=== PATIENT | male | born 1970 | race Caucasian/White ===

== ENCOUNTER → 2018-09-21 09:19 | Outpatient (CLI) | payer OTHER, SELFPAY ==
[2018-09-21 10:44] LABS: Alanine Aminotransferase 46 IU/L (21-72); Albumin 4.6 g/dL (3.5-5.0); Albumin Globulin Ratio 1.7 (1.0-2.8); Alkaline Phosphatase 83 U/L (38-126); Aspartate Aminotransferase 43 IU/L (17-59); BUN Creatinine Ratio 18.6 (6-22); Blood Urea Nitrogen 13 mg/dL (9-20); Calcium 9.5 mg/dL (8.4-10.2); Carbon Dioxide 24 mmol/L (22-32); Chloride 104 mmol/L (98-107); Cholesterol 229 mg/dL (140-199); Estimated Glomerular Filt Rate > 60.0 mL/min (>60); Globulin 2.7 g/dL (1.7-4.1); Glucose 113 mg/dL (70-100); HDL Cholesterol 60 mg/dL (40-60); HEMOLYSIS < 15 (0-50); LDL Cholesterol Calculated 125 mg/dL (<100); Potassium 4.5 mmol/L (3.4-5.1); Sodium 143 mmol/L (137-145); Total Protein 7.3 g/dL (6.3-8.2); Triglycerides 220 mg/dL (35-150)
[2018-09-21 11:12] LABS: Prostate Specific Antigen Scrn 1.11 ng/mL (0.1-4.0)
== END ==
PROVIDERS: PCP Internal Medicine; Visit Provider Internal Medicine
DX: E78.2 Mixed hyperlipidemia (principal); G43.709 Chronic migraine without aura, not intractable, without status migrainosus; Z12.5 Encounter for screening for malignant neoplasm of prostate
CPT/HCPCS: 36415; 80053; 80061; G0103

== ENCOUNTER 2019-03-10 18:39 | Emergency (ER) | payer OTHER, SELFPAY ==
[2019-03-10 18:54] VITALS: BP 106/75; PULSE 107; RESP 17; TEMP 36.4; O2SAT 99
--- NOTE | 2019-03-10 19:03 | DI.RAD.S_ITS ---
PROCEDURE: XR TOE LT MIN 2V INDICATIONS: pain TECHNIQUE: 3 views of the left first toe(s) acquired. COMPARISON: None. FINDINGS: Bones: Subtle, linear lucency involving the distal phalanx of the left great toe without cortical disruption. Overlying soft tissue edema. Normal alignment. No suspicious bony lesions. Soft tissues: No suspicious soft tissue densities. IMPRESSION: Subtle linear lucency involving the distal phalanx of the left great toe without cortical disruption. There is overlying soft tissue edema. Nondisplaced fracture not excluded given mechanism of injury. Dictated by: Geo Cruz M.D. on 03/10/2019 at 20:15 Approved by: Geo Cruz M.D. on 03/10/2019 at 20:16
--- NOTE | 2019-03-10 19:03 | DI.RAD.S_ITS ---
PROCEDURE: XR TOE RT MIN 2V INDICATIONS: pain TECHNIQUE: 3 views of the right first toe(s) acquired. COMPARISON: None. FINDINGS: Bones: Mildly comminuted distal tuft fracture of the right great toe distal phalanx with overlying soft tissue swelling and defect. Findings are consistent with an open-type /compound fracture. No suspicious bony lesions. Soft tissues: No suspicious soft tissue densities. IMPRESSION: Mildly comminuted distal tuft fracture of the right great toe distal phalanx with overlying soft tissue swelling and defect. Dictated by: Geo Cruz M.D. on 03/10/2019 at 20:16 Approved by: Geo Cruz M.D. on 03/10/2019 at 20:19
--- NOTE | 2019-03-10 20:35 | ED_ITS ---
HPI - Extremity Injury (Lower) <Cecilia Cr PA-C - Last Filed: 03/10/19 23:01> General Chief Complaint: Extremity Injury, Lower Stated Complaint: right foot injury Time Seen by Provider: 03/10/19 20:34 Source: patient Mode of arrival: other (family vehicle) Limitations: no limitations History of Present Illness HPI Narrative: This 49 year male complains of injury mainly to the right great toe, also some pain on the left. He states that he was out working in the [employer] when a 500 lb drum rolled down and over his toes and a little bit of his legs. He was wearing flip-flops. He states this knocked him over but no other injuries. He denies any pain in his knees, ankles, or shins. Denies any head contusion or pain elsewhere. Related Data Previous Rx's Medication Instructions Recorded buspirone 7.5 mg tablet 7.5 mg PO BID #60 tab 01/24/19 clonidine 0.2 mg/24 hr weekly 1 patch TRANSDERMAL QWEEK #12 each 01/24/19 transdermal patch paroxetine 40 mg tablet 40 mg PO Q DAY #30 tab 03/03/19 cephalexin [Keflex] 500 mg PO TID #14 cap 03/10/19 naproxen 500 mg PO BID #14 tab 03/10/19 oxycodone-acetaminophen [Percocet] 1 tab PO Q4-6H PRN #8 tab 03/10/19 Allergies Allergy/AdvReac Type Severity Reaction Status Date / Time No Known Drug Allergies Allergy Verified 03/10/19 20:34 Review of Systems <Cecilia Cr PA-C - Last Filed: 03/10/19 23:01> Review of Systems ROS Unobtainable: All systems reviewed & are unremarkable except as noted in HPI and below PFSH <Cecilia Cr PA-C - Last Filed: 03/10/19 23:01> Medical History Generalized anxiety disorder (Chronic) Mixed hyperlipidemia (Chronic 03/28/13) Chronic migraine (Chronic) Anxiety (Chronic ~2001) Carpal tunnel syndrome (Chronic ~2012) Chronic back pain (Chronic ~2012) Depression (Chronic) Migraines (Chronic) Chicken pox (Resolved ~1974) Surgical History Anesthesia (Resolved) History of mandibular surgery (Resolved ~1989) History of nasal surgery (Resolved ~2001) History of surgery (Resolved ~2013) History of carpal tunnel repair (~2012) Status post knee surgery (~2012) Family History Father Prostate cancer Social History Smoking Status: Never smoker Family History Father Prostate cancer Social History Smoking Status: Never smoker Exam <Cecilia Cr PA-C - Last Filed: 03/10/19 23:01> Narrative Exam Narrative: GENERAL APPEARANCE: Patient sitting comfortably, in no distress. LUNGS: Clear to auscultation bilaterally. HEART: Rate and rhythm regular without murmur, normal S1 and S2, no S3 or S4. MUSCULOSKELETAL: There is right great toe effusion, tender over the distal portion of the toe, no proximal tenderness, no tenderness over the metatarsals, right ankle or lower leg. Mild tenderness over the 2nd distal medial toe. Minimal tenderness over the left great toe without effusion. He has full range of motion throughout the toes but is tender with movement on the right. DERMATOLOGIC: Right great toe there is some dried blood along the nail border more medially, which is slightly loose but adherent. No open wounds, there is ecchymoses present. NEUROVASCULAR: PT/DP pulses 2+ bilaterally, sensation grossly intact in the lower extremities Initial Vital Signs Initial Vital Signs: Vital Signs Temperature 97.6 F 03/10/19 18:54 Pulse Rate 107 H 03/10/19 18:54 Respiratory Rate 17 03/10/19 18:54 Blood Pressure 106/75 03/10/19 18:54 Pulse Oximetry 99 03/10/19 18:54 <Cierra Gonzalez DO - Last Filed: 03/11/19 05:56> Initial Vital Signs Initial Vital Signs: Vital Signs Temperature 97.6 F 03/10/19 18:54 Pulse Rate 107 H 03/10/19 18:54 Respiratory Rate 17 03/10/19 18:54 Blood Pressure 106/75 03/10/19 18:54 Pulse Oximetry 99 03/10/19 18:54 Course <Cecilia Cr PA-C - Last Filed: 03/10/19 23:01> Additional Information: Patient able to bear weight with ortho shoes and ambulate with crutches. Treated with antibiotics to cover open fracture, tetanus vaccine updated. Pain medication given. Advised follow-up with PCP next week for re-evaluation as it was unclear whether he actually had a fracture on the left, unlikely to need more treatment at this point if these are protected since these are distal fractures. Orders Ordered: Discontinued Medications Cefazolin Sodium (Keflex) 1 bottle MISC SEEINSTR ONE Stop: 03/10/19 20:47 Last Admin: 03/10/19 22:36 Dose: Not Given Diphtheria/Tetanus/Acell Pertussis (Adacel) 0.5 ml IM .ONCE ONE Stop: 03/10/19 20:47 Last Admin: 03/10/19 21:21 Dose: 0.5 ml Ibuprofen (Advil) 800 mg PO NOW ONE Stop: 03/10/19 20:32 Last Admin: 03/10/19 20:37 Dose: 800 mg Ondansetron HCl (Zofran Odt) 4 mg SL NOW ONE Stop: 03/10/19 20:32 Last Admin: 03/10/19 20:37 Dose: 4 mg Oxycodone/Acetaminophen (Percocet 5/325) 2 tab PO NOW ONE Stop: 03/10/19 20:47 Last Admin: 03/10/19 21:21 Dose: 2 tab Oxycodone/Acetaminophen (Endocet 5/325 Prepack) 1 bottle MISC SEEINSTR ONE Stop: 03/10/19 22:31 Last Admin: 03/10/19 22:36 Dose: 1 bottle Vital Signs - 8 hr 03/10/19 22:51 Pulse Rate 64 Respiratory Rate 16 <Cierra Gonzalez DO - Last Filed: 03/11/19 05:56> Orders Ordered: Discontinued Medications Cefazolin Sodium (Keflex) 1 bottle MISC SEEINSTR ONE Stop: 03/10/19 20:47 Last Admin: 03/10/19 22:36 Dose: Not Given Diphtheria/Tetanus/Acell Pertussis (Adacel) 0.5 ml IM .ONCE ONE Stop: 03/10/19 20:47 Last Admin: 03/10/19 21:21 Dose: 0.5 ml Ibuprofen (Advil) 800 mg PO NOW ONE Stop: 03/10/19 20:32 Last Admin: 03/10/19 20:37 Dose: 800 mg Ondansetron HCl (Zofran Odt) 4 mg SL NOW ONE Stop: 03/10/19 20:32 Last Admin: 03/10/19 20:37 Dose: 4 mg Oxycodone/Acetaminophen (Percocet 5/325) 2 tab PO NOW ONE Stop: 03/10/19 20:47 Last Admin: 03/10/19 21:21 Dose: 2 tab Oxycodone/Acetaminophen (Endocet 5/325 Prepack) 1 bottle MISC SEEINSTR ONE Stop: 03/10/19 22:31 Last Admin: 03/10/19 22:36 Dose: 1 bottle Vital Signs - 8 hr 03/10/19 22:51 Pulse Rate 64 Respiratory Rate 16 MDM - Extremity Injury (Lower) <Cecilia Cr PA-C - Last Filed: 03/10/19 23:01> Imaging Data toe: Radiologist's impression: Isma Coreas 49 M 1970 [place] [address] XRay Report Signed Patient: Isma CoreasMR#: [id number] : 1970Acct:[id number] Age/Sex: 49 / MDate of Service: 03/10/19 Loc: ED Accession Number: [id number] Procedure: XR toe RT min 2V Ordering Provider: Cierra Gonzalez D.O. PROCEDURE: XR TOE RT MIN 2V INDICATIONS: pain TECHNIQUE: 3 views of the right first toe(s) acquired. COMPARISON: None. FINDINGS: Bones: Mildly comminuted distal tuft fracture of the right great toe distal phalanx with overlying soft tissue swelling and defect. Findings are consistent with an open- type /compound fracture. No suspicious bony lesions. Soft tissues: No suspicious soft tissue densities. IMPRESSION: Mildly comminuted distal tuft fracture of the right great toe distal phalanx with overlying soft tissue swelling and defect. Dictated by: Geo Cruz M.D. on 03/10/2019 at 20:16 Approved by: Geo Cruz M.D. on 03/10/2019 at 20:19 Discharge Plan Departure Patient Disposition: Home Clinical Impression: Fracture of toe, open Qualifiers: Encounter type: initial encounter Toe: great toe Phalanx: distal Fracture alignment: displaced Laterality: right Qualified Code(s): S92.421B - Displaced fracture of distal phalanx of right great toe, initial encounter for open fracture Discharge Date/Time: 03/10/19 22:52 Interventions: ED Discharge Assessment Last Done: 03/10/19 22:51 Instructions: DI for Toe Fracture Activity Restrictions/Additional Instructions: You have a fracture the end of your toe on the right foot. You had swelling on the left and though there was not a clear fracture, there were some subtle changes that could be a small fracture. We have given you surgical shoes for protection, please wear these, and use the crutches. You can bear weight on the left foot as tolerated, and start to bear a little weight on the right as your pain improves and you tolerate. Take 2 tablets of the antibiotic cephalexin when you get home and another dose 1st thing in the morning. I have given you a little bit of pain medicine (Percocet) prescription to take as needed, remember it can make you sleepy and not to drive. I have also given you a prescription anti-inflammatory pain reliever prescription as well as a prescription for antibiotics to continue for a few days since you had a injury and cut on your toe. Please monitor for any signs of infection such as fever, redness or streaking, acutely worsening pain or swelling and return right away if any. Otherwise, please follow-up with your PCP in a few days to recheck and determine whether any additional treatment or pain medicine may be needed Prescriptions: New oxycodone-acetaminophen [Percocet] 5-325 mg tablet 1 tab PO Q4-6H PRN (Reason: acute fracture pain) Qty: 8 RF: 0 cephalexin [Keflex] 500 mg capsule 500 mg PO TID Qty: 14 RF: 0 naproxen 500 mg tablet 500 mg PO BID Qty: 14 RF: 0 No Action paroxetine HCl [Paxil] 40 mg tablet 40 mg PO Q DAY Qty: 30 RF: 1 clonidine 0.2 mg/24 hr patch weekly 1 patch Transdermal QWEEK Qty: 12 RF: 3 buspirone 7.5 mg tablet 7.5 mg PO BID Qty: 60 RF: 3 Referrals: Sreekanth Vasquez MD [Primary Care Provider] - <Cierra Gonzalez DO - Last Filed: 03/11/19 05:56> Cosign ED Attending Cosignature Attestation: I was immediately available in the department for consultation. Documentation has been reviewed. I agree with assessment and plan.
[2019-03-10] MEDS: ONDANSETRON 4 MG ODT SL (20:37)
[2019-03-10] MEDS: IBUPROFEN 400 MG TABLET 800 MG PO (20:37)
[2019-03-10] MEDS: OXYCODONE/ACETAMINOPHEN 5/325 TABLET 2 TAB PO (21:21)
[2019-03-10] MEDS: TET,DIPH,PERTUSS(ACELL),VAC/PF 0.5 ML SYRINGE IM (21:21)
[2019-03-10] MEDS: OXYCODONE/APAP 5/325 PREPACK 1 BOTTLE MISC (22:36)
[2019-03-10 22:51] VITALS: PULSE 64; RESP 16
== END 2019-03-10 22:52 | disposition home or self-care (01) ==
PROVIDERS: Emergency Provider Internal Medicine; Family Provider Internal Medicine; PCP Internal Medicine
DX: S92.421B Displaced fracture of distal phalanx of right great toe, initial encounter for open fracture (principal); M79.675 Pain in left toe(s); W23.0XXA Caught, crushed, jammed, or pinched between moving objects, initial encounter; Z23 Encounter for immunization
CPT/HCPCS: 73660; 90471; 99283; 90715

== ENCOUNTER 2019-12-09 14:03 | Emergency (ER) | payer OTHER, SELFPAY ==
[2019-12-09 14:09] VITALS: BP 158/113; PULSE 80; RESP 14; TEMP 36.4; O2SAT 98
--- NOTE | 2019-12-09 14:14 | ED.WOUNDLAC ---
HPI - Wound/Laceration General Chief Complaint: Wound/Laceration Stated Complaint: lt hand middle Time Seen by Provider: 12/09/19 14:12 Source: patient Mode of arrival: Ambulatory History of Present Illness HPI narrative: 49-year-old man otherwise healthy cut his left middle finger tip of his finger with table saw. Involves just the tuft of this finger and the distal part of his fingernail. Last tetanus shot was unclear but probably more than 5 years ago. No other injuries Related Data Previous Rx's Medication Instructions Recorded buspirone 7.5 mg tablet See Rx Instructions .ROUTE 08/14/19 .COMPLEX #60 tablet paroxetine HCl 40 mg tablet See Rx Instructions .ROUTE 09/04/19 .COMPLEX #30 tablet Allergies Allergy/AdvReac Type Severity Reaction Status Date / Time No Known Drug Allergies Allergy Verified 04/18/19 10:47 Review of Systems Review of Systems Narrative: Open ROS Denies ? fever ? cough ? cold ? chills ? chest pain ? dyspnea ? orthopnea ? wheezing ? abdominal pain ? change to bowel or bladder habits ? nausea vomiting ? skin changes ? rashes Patient History Medical History Anxiety (Chronic ~2001) Carpal tunnel syndrome (Chronic ~2012) Chicken pox (Resolved ~1974) Chronic back pain (Chronic ~2012) Chronic migraine (Chronic) Depression (Chronic) Generalized anxiety disorder (Chronic) Migraines (Chronic) Mixed hyperlipidemia (Chronic 03/28/13) Surgical History Anesthesia (Resolved) History of carpal tunnel repair (~2012) History of mandibular surgery (Resolved ~1989) History of nasal surgery (Resolved ~2001) History of surgery (Resolved ~2013) Status post knee surgery (~2012) Family History Father Prostate cancer Social History Smoking Status: Never smoker Smoking Status: Never smoker alcohol intake frequency: 0-2 drinks per day Substance Use Type: does not use Exam Narrative Exam Narrative: General: Alert appropriate in no acute distress Respiratory: Able to speak in full sentences, no obvious respiratory distress Skin: No obvious rashes, warm and dry Neurologic: Grossly intact no obvious asymmetries or abnormalities Psych, appropriate insight and affect, cooperative Extremity: Left ring finger tip with trauma. Barely disturbing the tuft of the finger and not extending deeper nor involving bone at all. Bleeding is controlled. Neurovascularly intact Procedure: Left middle finger suture The distal tuft of his finger mostly skin, not involving significant deeper tissue, is absent. 1.5 cm length A 3-0 nylon running suture with edge of wound and through the nail itself to close the area of healing that will need to occur by secondary intention Tolerated procedure well Procedure: Digital block Left ring finger 2% lidocaine without epi 3 cc total Excellent anesthesia Initial Vital Signs Initial Vital Signs: Vital Signs Temperature 97.6 F 12/09/19 14:09 Pulse Rate 80 12/09/19 14:09 Respiratory Rate 14 12/09/19 14:09 Blood Pressure 158/113 H 12/09/19 14:09 Pulse Oximetry 98 12/09/19 14:09 Course Orders Ordered: Discontinued Medications Bacitracin (Bacitracin) 1 applic TOP NOW ONE Stop: 12/09/19 14:37 Diphtheria/Tetanus/Acell Pertussis (Adacel) 0.5 ml IM .ONCE ONE Stop: 12/09/19 14:20 Last Admin: 12/09/19 14:26 Dose: 0.5 ml Documented by: HARRY Vital Signs Vital signs: Vital Signs - 8 hr 12/09/19 14:09 Temperature 97.6 F Pulse Rate 80 Respiratory Rate 14 Blood Pressure 158/113 H Pulse Oximetry 98 Discharge Plan Departure Patient Disposition: Home Clinical Impression: Laceration Instructions: DI for Laceration Repair Activity Restrictions/Additional Instructions: Thank you for coming in today, despite being not on your original agenda. You were very ethan. You manage to cut off the very tip of your finger however it is a clean cut, does not involve the bone at all and should heal nicely. Keep the area clean and dry with bacitracin ointment over the and to help with the healing. I put stitches in to try to help with keeping the bleeding down and also to help it heal faster with a smaller amount of wound that will need to heal completely. If you notice any signs of infection, you will need to be seen again Stitches should come out next Monday 12/18. You also had a tetanus shot today It was nice to see you again. I hope you heal quickly Prescriptions: No Action buspirone 7.5 mg tablet See Rx Instructions .ROUTE .COMPLEX Qty: 60 RF: 3 paroxetine HCl 40 mg tablet See Rx Instructions .ROUTE .COMPLEX Qty: 30 RF: 3 Referrals: Sreekanth Vasquez [Other]
[2019-12-09] MEDS: LIDOCAINE 2% INJ MDV 20 ML (14:22)
[2019-12-09] MEDS: TET,DIPH,PERTUSS(ACELL),VAC/PF 0.5 ML SYRINGE IM (14:26)
[2019-12-09] MEDS: BACITRACIN OINT 0.9 GM PCKT 1 APPLIC TOP (14:45)
--- NOTE | 2019-12-09 14:51 | PC.NURSE ---
bacitracin ointment applied.
[2019-12-09 14:55] VITALS: BP 138/71; PULSE 88; RESP 18; O2SAT 95
== END 2019-12-09 14:51 | disposition home or self-care (01) ==
PROVIDERS: Emergency Provider Emergency Medicine; Family Provider Internal Medicine
DX: S61.213A Laceration without foreign body of left middle finger without damage to nail, initial encounter (principal); W31.2XXA Contact with powered woodworking and forming machines, initial encounter; Z23 Encounter for immunization
CPT/HCPCS: 12001; 64450; 90471; 99283; 99284; 90715

== ENCOUNTER 2019-12-10 23:42 | Emergency (ER) | payer OTHER, SELFPAY ==
[2019-12-10 23:51] VITALS: BP 120/77; PULSE 75; RESP 20; TEMP 36.8; O2SAT 97
--- NOTE | 2019-12-10 23:56 | DI.RAD.S_ITS ---
PROCEDURE: XR FINGER LT MIN 2V INDICATIONS: table saw injury lt 3rd digit TECHNIQUE: AP hand, 2 views of the 3 finger(s) acquired. COMPARISON: None. FINDINGS: Bones: No fractures or dislocations. No suspicious bony lesions. Soft tissues: No suspicious soft tissue calcifications. Soft tissue defect noted in the tip of the third digit compatible with known laceration. IMPRESSION: No fracture. No osseous lesion. If symptoms and/or clinical suspicion for pathology persists, further assessment with repeat radiographs (7-10 days) or advanced imaging (e.g. CT, MRI or bone scan) may be helpful. Dictated by: Olivia Pires MD, PhD on 12/11/2019 at 9:05 Approved by: Olivia Pires MD, PhD on 12/11/2019 at 9:06
[2019-12-11] MEDS: HYDROMORPHONE 1 MG INJ IM (02:36)
[2019-12-11] MEDS: BUPIVACAINE 0.5% (PF) VIAL 5 ML SUBCUT (02:57)
--- NOTE | 2019-12-11 03:44 | ED.UPPEXIN ---
HPI - Extremity Injury (Upper) General Chief Complaint: Extremity Injury, Upper Stated Complaint: PAIN MIDDLE LEFT FINGER HAS STITCHES Time Seen by Provider: 12/11/19 02:18 Source: patient Mode of arrival: Ambulatory History of Present Illness HPI narrative: CC: Severe pain in the left middle finger. HPI: The patient is a 49-year-old male who states that 1 day ago the patient cut the tip of his left middle finger on a table saw. The laceration an injury extended into the nail bed. The nail bed was repaired and sutured. This procedure was performed with the lidocaine digital nerve block. The patient states that when he was discharged he was having return of pain and discomfort as the digital nerve block was wearing Related Data Previous Rx's Medication Instructions Recorded buspirone 7.5 mg tablet See Rx Instructions .ROUTE 08/14/19 .COMPLEX #60 tablet paroxetine HCl 40 mg tablet See Rx Instructions .ROUTE 09/04/19 .COMPLEX #30 tablet ibuprofen 600 mg PO QID PRN #20 tab 12/11/19 oxycodone-acetaminophen [Percocet] 1 tab PO Q6H PRN #12 tab 12/11/19 Allergies Allergy/AdvReac Type Severity Reaction Status Date / Time No Known Drug Allergies Allergy Verified 04/18/19 10:47 Review of Systems Review of Systems Narrative: The patient's review of systems were negative except for those mentioned in the history of present illness. Patient History Medical History Anxiety (Chronic ~2001) Carpal tunnel syndrome (Chronic ~2012) Chicken pox (Resolved ~1974) Chronic back pain (Chronic ~2012) Chronic migraine (Chronic) Depression (Chronic) Generalized anxiety disorder (Chronic) Migraines (Chronic) Mixed hyperlipidemia (Chronic 03/28/13) Surgical History Anesthesia (Resolved) History of carpal tunnel repair (~2012) History of mandibular surgery (Resolved ~1989) History of nasal surgery (Resolved ~2001) History of surgery (Resolved ~2013) Status post knee surgery (~2012) Family History Father Prostate cancer Social History Smoking Status: Never smoker Smoking Status: Never smoker alcohol intake frequency: 0-2 drinks per day Substance Use Type: does not use Exam Narrative Exam Narrative: PHYSICAL EXAM: CONSTITUTIONAL: Awake, Alert, Oriented, Coherent, Cooperative in moderate distress. He appears very uncomfortable and is holding his left hand and finger in the air because of pain and discomfort with his right hand. EENT: PERRL, FROM of eyes, no discharge, LUNGS: Clear with symmetrical breath sounds without respiratory distress HEART: Normal heart tones, regular rhythm and rate without murmur. ABDOMEN: Soft, non-tender, normal bowel sounds without guarding, rebound, rigidity or palpable mass EXTREMITIES: The tip of the patient's left middle finger is partially amputated and repaired with multiple sutures extending through the nail bed and the finger covering it with skin. There is some dried blood but no active bleeding erythema or signs of infection. NEURO: Awake, alert, oriented, conversive, cranial nerves II-XII are symmetrical and normal, moves all 4 extremities and is ambulatory Initial Vital Signs Initial Vital Signs: Vital Signs Temperature 98.3 F 12/10/19 23:51 Pulse Rate 75 12/10/19 23:51 Respiratory Rate 20 12/10/19 23:51 Blood Pressure 120/77 12/10/19 23:51 Pulse Oximetry 97 12/10/19 23:51 Course Course Course Narrative: The patient for pain and discomfort was administered 1 mg of Dilaudid IM. The patient was requesting a nerve block that lasted longer than the lidocaine nerve block he received in the emergency department. Consequently the patient was administered a 0.5% Sensorcaine digital nerve block at the level of the metacarpophalangeal heads. The patient tolerated the procedure well. Three and half to 4 cc of 0.5% Marcaine was injected through the webbing of the the middle finger in between the metacarpals. Adequate anesthesia was achieved and the patient was discharged home. He was advised to follow-up with his primary care physician and they have had the sutures removed as previously noted. Orders Ordered: Discontinued Medications Bacitracin (Bacitracin) 1 applic TOP NOW ONE Stop: 12/11/19 03:38 Last Admin: 12/11/19 03:49 Dose: 1 applic Documented by: NADEEM Bupivacaine HCl (Sensorcaine 0.5%) 10 ml INJ INTRA-OP ONE Stop: 12/11/19 02:27 Last Admin: 12/11/19 04:06 Dose: Not Given Documented by: NADEEM Bupivacaine HCl (Sensorcaine 0.5%) 5 ml SUBCUT NOW ONE Stop: 12/11/19 02:45 Last Admin: 12/11/19 04:07 Dose: Not Given Documented by: NADEEM Bupivacaine HCl (Sensorcaine 0.5% (Pf)) 5 ml SUBCUT NOW ONE Stop: 12/11/19 02:48 Last Admin: 12/11/19 02:57 Dose: 5 ml Documented by: BRYCE Hydromorphone HCl (Dilaudid) 1 mg IM NOW ONE Stop: 12/11/19 02:28 Last Admin: 12/11/19 02:36 Dose: 1 mg Documented by: BRYCE Vital Signs Vital signs: Vital Signs - 8 hr 12/10/19 23:51 Temperature 98.3 F Pulse Rate 75 Respiratory Rate 20 Blood Pressure 120/77 Pulse Oximetry 97 MDM - Extremity Injury (Upper) Medical Records Attestation: I reviewed the patient's medical records. Discharge Plan Departure Patient Disposition: Home Clinical Impression: Finger pain, left Injury of finger of left hand Qualifiers: Encounter type: subsequent encounter Qualified Code(s): S69.92XD - Unspecified injury of left wrist, hand and finger(s), subsequent encounter Discharge Date/Time: 12/11/19 04:11 Instructions: DI for Hand Pain Activity Restrictions/Additional Instructions: The 0.5% Marcaine/Sensorcaine digital block of your left middle finger should last for approximately 12 hours. However depending on your body's metabolism of the anesthetic it may last as short as 4 hours and as long as 24 hours. You need to follow-up with your family physician 48 hours after the original injury and repair for a wound check. After 24 hours you can wash the finger in running water as in a shower with soap and water rinse well pat dry, apply a thin film of triple antibiotic ointment and bandage. You can get a 4 prong says finger splint in the pharmacy and where it to protect your finger from arm injury and bumping it. If the finger becomes more painful, hot, swollen, red, or draining pus you need to have it rechecked immediately. After the finger nerve block wears off in you're having pain and discomfort you can take the medicines prescribed as needed. Prescriptions: New ibuprofen 600 mg tablet 600 mg PO QID PRN (Reason: pain) Qty: 20 RF: 0 oxycodone-acetaminophen [Percocet] 5-325 mg tablet 1 tab PO Q6H PRN (Reason: pain) Qty: 12 RF: 0 No Action buspirone 7.5 mg tablet See Rx Instructions .ROUTE .COMPLEX Qty: 60 RF: 3 paroxetine HCl 40 mg tablet See Rx Instructions .ROUTE .COMPLEX Qty: 30 RF: 3
[2019-12-11] MEDS: BACITRACIN OINT 0.9 GM PCKT 1 APPLIC TOP (03:49)
--- NOTE | 2019-12-11 03:59 | PC.NURSE ---
seen in er yesterday for tablesaw vs L third finger. sutures in place. Returns for pain controll. Sutures through nail causing severe pain. received digital block from ed doctor yesterday that quickly wore off when he went home. Took leftover pain medication from previous surgery with little effect.
[2019-12-11 04:10] VITALS: BP 119/80; PULSE 72; RESP 14; O2SAT 96
== END 2019-12-11 04:11 | disposition home or self-care (01) ==
PROVIDERS: Emergency Provider Emergency Medicine; Family Provider Internal Medicine
DX: M79.645 Pain in left finger(s) (principal); S69.92XD Unspecified injury of left wrist, hand and finger(s), subsequent encounter
CPT/HCPCS: 64450; 73140; 96372; 99283; 99284; J1170

== ENCOUNTER 2020-07-19 16:47 | Emergency (ER) | payer OTHER, SELFPAY ==
[2020-07-19 17:02] VITALS: BP 121/89; PULSE 114; RESP 22; TEMP 37; O2SAT 98; BMI 34.0
--- NOTE | 2020-07-19 17:35 | PC.NURSE ---
patient came into the ED stating that hes been taking percocet for the last 5 months and on wednesday he came off of it. He has been nauseated, vomiting. He has been having trouble sleeping do to inability to sleep.
[2020-07-19 17:44] LABS: Add Manual Diff / Slide Review NO; Basophils Absolute Auto 100 /uL (0-100); Basophils Percent Auto 0.6 % (0-2); Eosinophils Absolute Auto 100 /uL (0-450); Eosinophils Percent Auto 0.8 % (2-4); Hematocrit 41.4 % (41-53); Hemoglobin 14.3 g/dL (13.5-17.5); Lymphocytes Absolute Auto 3600 /uL (1100-4500); Lymphocytes Percent Auto 31.2 % (25-40); Mean Corpuscular HGB Conc 34.4 % (30-36); Mean Corpuscular Hemoglobin 30.6 PG (26-34); Monocytes Absolute Auto 1300 /uL (0-900); Monocytes Percent Auto 11.4 % (3-14); Neutrophils Absolute Auto 6500 /uL (1500-7000); Platelet Count 267 X10^3/uL (150-400); Red Blood Cell Count 4.66 X10^6/uL (4.5-5.9); Red Cell Distribution Width 13.6 % (11.6-14.8); White Blood Cell Count 11.5 X10^3/uL (4.5-11.0)
[2020-07-19 17:49] LABS: Blood Urea Nitrogen 14 mg/dL (9-20); Carbon Dioxide 22 mmol/L (22-32); Chloride 106 mmol/L (98-107); Potassium 3.7 mmol/L (3.4-5.1); Sodium 138 mmol/L (137-145)
[2020-07-19 17:50] LABS: Alanine Aminotransferase 35 IU/L (<50); Albumin 4.4 g/dL (3.5-5.0); Albumin Globulin Ratio 1.5 (1.0-2.8); Alkaline Phosphatase 87 U/L (38-126); Aspartate Aminotransferase 55 IU/L (17-59); BUN Creatinine Ratio 18.7 (6-22); Bilirubin Total 1.1 mg/dL (0.2-1.3); Estimated Glomerular Filt Rate > 60.0 mL/min (>60); Globulin 2.9 g/dL (1.7-4.1); Glucose 140 mg/dL (70-100); HEMOLYSIS 20 (0-50); Lipase 848 U/L (23-300); Total Protein 7.3 g/dL (6.3-8.2)
[2020-07-19] MEDS: SODIUM CHLORIDE 0.9% 1,000 ML 1000 ML IV (18:02)
[2020-07-19] MEDS: ONDANSETRON 4 MG/2 ML INJ IV (18:02)
[2020-07-19 18:09] LABS: INR 1.1 (0.9-1.3); Prothrombin Time 12.1 SECONDS (10.1-12.7)
[2020-07-19 18:12] LABS: PTT Partial Thromboplastin Tim 28 SECONDS (26.4-36.2)
--- NOTE | 2020-07-19 18:35 | DI.CT.S_ITS ---
PROCEDURE: CT ABDOMEN PELVIS W CON INDICATIONS: Abdominal pain TECHNIQUE: After the administration of intravenous contrast, 5 mm thick sections acquired from the diaphragm to the symphysis. 5 mm coronal and sagittal reformats were acquired. For radiation dose reduction, the following was used: automated exposure control, adjustment of mA and/or kV according to patient size. COMPARISON: None. FINDINGS: Image quality: Excellent. ABDOMEN: Lung bases: Lung bases are clear. Heart size is normal. Solid organs: There is diffuse fatty infiltration of the liver. The gallbladder appears normal. Biliary system is non dilated. Pancreas enhances normally. Spleen is normal in size and enhancement. No adrenal nodules. Kidneys demonstrate normal size and enhancement, without hydronephrosis. Peritoneum and bowel: A few diverticula are seen in the colon without signs of acute diverticulitis. Normal appendix. There are no signs of bowel obstruction. There is no ascites or pneumoperitoneum Nodes and vessels: No retroperitoneal or mesenteric adenopathy by size criteria. Aorta and inferior vena cava are normal in size. Miscellaneous: No ventral hernias. PELVIS: Genitourinary: Bladder wall thickness is normal. Miscellaneous: No inguinal hernias or adenopathy. Bones: No suspicious bony lesions. No vertebral body compression fractures. Mild degenerative changes are seen in the pubic symphysis and included spine. IMPRESSION: 1. No acute abnormality is identified in the abdomen or pelvis. 2. Colonic diverticulosis without signs of acute diverticulitis. 3. Diffuse hepatic steatosis. Dictated by: Loco Vasquez M.D. on 07/19/2020 at 20:13 Approved by: Loco Vasquez M.D. on 07/19/2020 at 20:17
--- NOTE | 2020-07-19 18:46 | ED.GENADULT ---
HPI - General Adult General Chief complaint: Toxicology Problem Stated complaint: SOB STOMACH ACHES Time Seen by Provider: 07/19/20 18:09 Source: patient Mode of arrival: Ambulatory History of Present Illness HPI narrative: Patient here with . Feels very anxious. Insomnia. Nausea. Short of breath and abdominal pain. Patient has been on Percocet for many months this year. Prior to his right shoulder surgery in April this summer. Continue Percocet the summer. Tried stopping ?cold turkey? 2 days ago. Since then has the symptoms. No prior history of abuse/rehab for opiates. Denies any alcohol or other drug abuse. Primary care Dr. Hartman aware. Has appointment this Wednesday. Denies any SI or HI. No auditory or visual hallucinations. Related Data Previous Rx's Medication Instructions Recorded buspirone 7.5 mg tablet See Rx Instructions .ROUTE 01/03/20 .COMPLEX #60 tablet paroxetine HCl 40 mg tablet 40 mg PO DAILY #90 tab 04/18/20 lorazepam 1 mg PO TID PRN #8 tab 07/19/20 ondansetron 4 mg PO Q8H PRN #10 tab 07/19/20 Allergies Allergy/AdvReac Type Severity Reaction Status Date / Time No Known Drug Allergies Allergy Verified 07/19/20 17:07 Review of Systems Review of Systems Narrative: GENERAL: Denies chills, fatigue, malaise, fever, sweats. HEENT: Denies sinus pain, ear pain, sore throat, difficulty swallowing, dizziness. RESPIRATORY: Complains dyspnea, denies cough, wheezing, hemoptysis, sputum. CARDIOVASCULAR: Denies chest pain, palpitations, orthopnea, edema, GASTROINTESTINAL: Complains nausea, vomiting, abdominal pain, diarrhea, denies constipation, melena. : Denies dysuria, frequency, incontinence, hematuria, urinary retention. MUSCULOSKELETAL: denies weakness, joint pain, or bony pain SKIN: Denies rash, skin lesions NEUROLOGIC: Denies weakness, headache, numbness, change in speech, confusion, seizures, incoordination. PSYCHIATRIC: Anxious/insomnia ROS Unobtainable: All systems reviewed & are unremarkable except as noted in HPI and below Patient History Medical History Anxiety (Chronic ~2001) Carpal tunnel syndrome (Chronic ~2012) Chicken pox (Resolved ~1974) Chronic back pain (Chronic ~2012) Chronic migraine (Chronic) Depression (Chronic) Generalized anxiety disorder (Chronic) Migraines (Chronic) Mixed hyperlipidemia (Chronic 03/28/13) Strain of tendon of left rotator cuff (Acute) Surgical History Anesthesia (Resolved) History of carpal tunnel repair (~2012) History of mandibular surgery (Resolved ~1989) History of nasal surgery (Resolved ~2001) History of surgery (Resolved ~2013) Status post knee surgery (~2012) Family History Father Prostate cancer Social History Smoking Status: Never smoker Smoking Status: Never smoker alcohol intake frequency: 0-2 drinks per day Substance Use Type: does not use Exam Narrative Exam Narrative: GENERAL: patient appears stated age. Well-nourished, well-developed patient, in no distress, not toxic HEAD: Atraumatic. Normocephalic. EYES: Pupils equal round and reactive. Extraocular motions intact. No scleral icterus. No injection or drainage. ENT: Nose without bleeding, purulent drainage. Throat without erythema, tonsillar hypertrophy or exudate. Airway patent. NECK: Trachea midline. Non tender CARDIOVASCULAR: Regular rate and rhythm without murmurs, gallops, or rubs. RESPIRATORY: Clear to auscultation. Breath sounds equal bilaterally. No wheezes, rales, or rhonchi. GASTROINTESTINAL: Abdomen soft, non-tender, nondistended. No peritoneal signs. Normal bowel sounds. No epigastric tenderness. No flank tenderness EXTREMITIES: No edema or joint tenderness. BACK: Nontender without deformity or crepitance. No flank tenderness. NEURO: AOx4. SKIN: No rash or erythema of visible areas PSYCH: Not anxious, is cooperative Initial Vital Signs Initial Vital Signs: Vital Signs Temperature 98.6 F 07/19/20 17:02 Pulse Rate 114 H 07/19/20 17:02 Respiratory Rate 22 07/19/20 17:02 Blood Pressure 121/89 07/19/20 17:02 Pulse Oximetry 98 07/19/20 17:02 Course Course Course Narrative: Patient feeling much better after Ativan. Not anxious. Much more calm. No chest pain shortness breath or abdominal pain or nausea. Orders Ordered: Discontinued Medications Sodium Chloride (Normal Saline 0.9%) 1,000 mls @ 1,000 mls/hr IV BOLUS ONE Stop: 07/19/20 18:37 Last Infusion: 07/19/20 21:49 Dose: 0 mls/hr Documented by: Admin: 07/19/20 18:02 Dose: 1,000 mls/hr Documented by: BUD Sodium Chloride (Normal Saline 0.9%) 1,000 mls @ 1,000 mls/hr IV BOLUS ONE Stop: 07/19/20 19:34 Last Admin: 07/19/20 21:53 Dose: Not Given Documented by: BUD Lorazepam (Ativan) 0.5 mg IV NOW ONE Stop: 07/19/20 18:42 Last Admin: 07/19/20 18:51 Dose: 0.5 mg Documented by: BUD Lorazepam (Ativan) 1 mg PO NOW ONE Stop: 07/19/20 21:23 Last Admin: 07/19/20 21:33 Dose: 1 mg Documented by: BUD Lorazepam (Ativan) 1 mg PO NOW ONE Stop: 07/19/20 21:23 Last Admin: 07/19/20 21:34 Dose: 1 mg Documented by: BUD Ondansetron HCl (Zofran) 4 mg IV NOW ONE Stop: 07/19/20 17:40 Last Admin: 07/19/20 18:02 Dose: 4 mg Documented by: BUD Ondansetron HCl (Zofran Odt Prepack) 1 bottle [facility] ONE Stop: 07/19/20 21:25 Last Admin: 07/19/20 21:33 Dose: 1 bottle Documented by: BUD Reevaluation(s) Reevaluation #1: Patient feeling much better after Ativan. Not anxious. Much more calm. No chest pain shortness breath or abdominal pain or nausea. Time: 21:14 Consultations Consultation #1: Spoke with primary care promotions associate Dr. Saavedra, agrees treatment plan appropriate to give Ativan taper until Wednesday next week to see primary care Dr. Hartman as scheduled. Time: 21:15 Vital Signs Vital signs: Vital Signs - 8 hr 07/19/20 21:59 Pulse Rate 83 Respiratory Rate 18 Pulse Oximetry 98 Medical Decision Making Differential Diagnosis Differential Diagnosis: Opiate withdrawal/anxiety/pancreatitis Medical Records Medical records reviewed: Yes I reviewed the patient's medical records. Lab Data Lab results reviewed: Yes I reviewed the patient's lab results. Result diagrams: 07/19/20 17:20 07/19/20 17:20 Labs: Lab Results 07/19/20 07/19/20 07/19/20 Range/Units 17: 17:20 17:20 WBC 11.5 H (4.5-11.0) X10^3/uL RBC 4.66 (4.5-5.9) X10^6/uL Hgb 14.3 (13.5-17.5) g/dL Hct 41.4 (41-53) % MCV 89.0 (80-100) fL MCH 30.6 (26-34) PG MCHC 34.4 (30-36) % RDW 13.6 (11.6-14.8) % Plt Count 267 (150-400) X10^3/uL Neut % (Auto) 56.0 (50-75) % Lymph % (Auto) 31.2 (25-40) % Cross % (Auto) 11.4 (3-14) % Eos % (Auto) 0.8 L (2-4) % Baso % (Auto) 0.6 (0-2) % Neut # (Auto) 6500 (0169-2992) /uL Lymph # (Auto) 3600 (0456-1326) /uL Cross # (Auto) 1300 H (0-900) /uL Eos # (Auto) 100 (0-450) /uL Baso # (Auto) 100 (0-100) /uL PT (10.1-12.7) SECONDS INR (0.9-1.3) APTT (26.4-36.2) SECONDS Sodium 138 (137-145) mmol/L Potassium 3.7 (3.4-5.1) mmol/L Chloride 106 (98-107) mmol/L Carbon Dioxide 22 (22-32) mmol/L BUN 14 (9-20) mg/dL Creatinine 0.75 (0.66-1.25) mg/dL Estimated GFR > 60.0 (>60) mL/min BUN/Creatinine Ratio 18.7 (6-22) Glucose 140 H (70-100) mg/dL Calcium 9.0 (8.4-10.2) mg/dL Total Bilirubin 1.1 (0.2-1.3) mg/dL AST 55 (17-59) IU/L ALT 35 (<50) IU/L Alkaline Phosphatase 87 (38-126) U/L Total Creatine Kinase (55-170) U/L CK-MB (CK-2) (<2.37) ng/mL CK-MB (CK-2) Rel Index (1.5-5.0) % Troponin I (0.01-0.034) ng/mL Total Protein 7.3 (6.3-8.2) g/dL Albumin 4.4 (3.5-5.0) g/dL Globulin 2.9 (1.7-4.1) g/dL Albumin/Globulin Ratio 1.5 (1.0-2.8) Lipase 848 H (23-300) U/L Urine Color Urine Appearance Urine pH (4.5-8.0) Ur Specific [place] (1.000-1.035) Urine Protein (Negative) Urine Glucose (UA) (Negative) g/dL Urine Ketones (NEGATIVE) Urine Occult Blood (Negative) Urine Nitrate (Negative) Urine Bilirubin (NEGATIVE) Urine Urobilinogen (0.2) E.U./dL Ur Leukocyte Esterase (NEGATIVE) Urine RBC (0-5/HPF) Urine WBC (0-5/HPF) Ur Squamous Epith Cells (0-5/HPF) Urine Bacteria (None) Hyaline Casts (None) Urine Mucus (Negative) Ur Culture Indicated? U Opiates 300ng/mL cut (Negative) Ur Oxycodone Screen (Negative) Urine Methadone Screen (Negative) Ur Barbiturates Screen (Negative) U Tricyclic Antidepress (Negative) Ur Phencyclidine Scrn (Negative) Ur Amphetamines Screen (Negative) U Methamphetamines Scrn (Negative) Ur MDMA Scrn (Ecstasy) (Negative) U Benzodiazepines Scrn (Negative) Urine Cocaine Screen (Negative) U Marijuana (THC) Screen (Negative) Ethyl Alcohol < 10 ( - 10) mg/dL 07/19/20 07/19/20 07/19/20 Range/Units 17:20 17:56 19:00 WBC (4.5-11.0) X10^3/uL RBC (4.5-5.9) X10^6/uL Hgb (13.5-17.5) g/dL Hct (41-53) % MCV (80-100) fL MCH (26-34) PG MCHC (30-36) % RDW (11.6-14.8) % Plt Count (150-400) X10^3/uL Neut % (Auto) (50-75) % Lymph % (Auto) (25-40) % Cross % (Auto) (3-14) % Eos % (Auto) (2-4) % Baso % (Auto) (0-2) % Neut # (Auto) (2003-2420) /uL Lymph # (Auto) (7218-7308) /uL Cross # (Auto) (0-900) /uL Eos # (Auto) (0-450) /uL Baso # (Auto) (0-100) /uL PT 12.1 (10.1-12.7) SECONDS INR 1.1 (0.9-1.3) APTT 28 (26.4-36.2) SECONDS Sodium (137-145) mmol/L Potassium (3.4-5.1) mmol/L Chloride (98-107) mmol/L Carbon Dioxide (22-32) mmol/L BUN (9-20) mg/dL Creatinine (0.66-1.25) mg/dL Estimated GFR (>60) mL/min BUN/Creatinine Ratio (6-22) Glucose (70-100) mg/dL Calcium (8.4-10.2) mg/dL Total Bilirubin (0.2-1.3) mg/dL AST (17-59) IU/L ALT (<50) IU/L Alkaline Phosphatase (38-126) U/L Total Creatine Kinase 817 H (55-170) U/L CK-MB (CK-2) 3.44 H (<2.37) ng/mL CK-MB (CK-2) Rel Index 0.4 L (1.5-5.0) % Troponin I < 0.012 (0.01-0.034) ng/mL Total Protein (6.3-8.2) g/dL Albumin (3.5-5.0) g/dL Globulin (1.7-4.1) g/dL Albumin/Globulin Ratio (1.0-2.8) Lipase (23-300) U/L Urine Color Yellow Urine Appearance Clear Urine pH 5.0 (4.5-8.0) Ur Specific [place] >=1.030 H (1.000-1.035) Urine Protein Trace H (Negative) Urine Glucose (UA) Negative (Negative) g/dL Urine Ketones Negative (NEGATIVE) Urine Occult Blood Negative (Negative) Urine Nitrate Negative (Negative) Urine Bilirubin Negative (NEGATIVE) Urine Urobilinogen 0.2 (0.2) E.U./dL Ur Leukocyte Esterase Negative (NEGATIVE) Urine RBC 0-1/hpf (0-5/HPF) Urine WBC 0-1/hpf (0-5/HPF) Ur Squamous Epith Cells 0-1 /hpf (0-5/HPF) Urine Bacteria None seen (None) Hyaline Casts 1-5/lpf (None) Urine Mucus 2+ H (Negative) Ur Culture Indicated? Cult not indicated U Opiates 300ng/mL cut (Negative) Ur Oxycodone Screen (Negative) Urine Methadone Screen (Negative) Ur Barbiturates Screen (Negative) U Tricyclic Antidepress (Negative) Ur Phencyclidine Scrn (Negative) Ur Amphetamines Screen (Negative) U Methamphetamines Scrn (Negative) Ur MDMA Scrn (Ecstasy) (Negative) U Benzodiazepines Scrn (Negative) Urine Cocaine Screen (Negative) U Marijuana (THC) Screen (Negative) Ethyl Alcohol ( - 10) mg/dL 07/19/20 Range/Units 19:00 WBC (4.5-11.0) X10^3/uL RBC (4.5-5.9) X10^6/uL Hgb (13.5-17.5) g/dL Hct (41-53) % MCV (80-100) fL MCH (26-34) PG MCHC (30-36) % RDW (11.6-14.8) % Plt Count (150-400) X10^3/uL Neut % (Auto) (50-75) % Lymph % (Auto) (25-40) % Cross % (Auto) (3-14) % Eos % (Auto) (2-4) % Baso % (Auto) (0-2) % Neut # (Auto) (4081-0230) /uL Lymph # (Auto) (1176-2429) /uL Cross # (Auto) (0-900) /uL Eos # (Auto) (0-450) /uL Baso # (Auto) (0-100) /uL PT (10.1-12.7) SECONDS INR (0.9-1.3) APTT (26.4-36.2) SECONDS Sodium (137-145) mmol/L Potassium (3.4-5.1) mmol/L Chloride (98-107) mmol/L Carbon Dioxide (22-32) mmol/L BUN (9-20) mg/dL Creatinine (0.66-1.25) mg/dL Estimated GFR (>60) mL/min BUN/Creatinine Ratio (6-22) Glucose (70-100) mg/dL Calcium (8.4-10.2) mg/dL Total Bilirubin (0.2-1.3) mg/dL AST (17-59) IU/L ALT (<50) IU/L Alkaline Phosphatase (38-126) U/L Total Creatine Kinase (55-170) U/L CK-MB (CK-2) (<2.37) ng/mL CK-MB (CK-2) Rel Index (1.5-5.0) % Troponin I (0.01-0.034) ng/mL Total Protein (6.3-8.2) g/dL Albumin (3.5-5.0) g/dL Globulin (1.7-4.1) g/dL Albumin/Globulin Ratio (1.0-2.8) Lipase (23-300) U/L Urine Color Urine Appearance Urine pH (4.5-8.0) Ur Specific [place] (1.000-1.035) Urine Protein (Negative) Urine Glucose (UA) (Negative) g/dL Urine Ketones (NEGATIVE) Urine Occult Blood (Negative) Urine Nitrate (Negative) Urine Bilirubin (NEGATIVE) Urine Urobilinogen (0.2) E.U./dL Ur Leukocyte Esterase (NEGATIVE) Urine RBC (0-5/HPF) Urine WBC (0-5/HPF) Ur Squamous Epith Cells (0-5/HPF) Urine Bacteria (None) Hyaline Casts (None) Urine Mucus (Negative) Ur Culture Indicated? U Opiates 300ng/mL cut Positive H (Negative) Ur Oxycodone Screen Positive H (Negative) Urine Methadone Screen Positive H (Negative) Ur Barbiturates Screen Negative (Negative) U Tricyclic Antidepress Negative (Negative) Ur Phencyclidine Scrn Negative (Negative) Ur Amphetamines Screen Negative (Negative) U Methamphetamines Scrn Negative (Negative) Ur MDMA Scrn (Ecstasy) Negative (Negative) U Benzodiazepines Scrn Negative (Negative) Urine Cocaine Screen Negative (Negative) U Marijuana (THC) Screen Positive H (Negative) Ethyl Alcohol ( - 10) mg/dL Urine Dip Bedside Urine Glucose 100 mg/dl Bedside Urine Bilirubin + 1 Bedside Urine Ketone +/- 5 Urine Specific [place] 1.030 Bedside Urine Occult Blood - Negative Bedside Urine pH 5.5 Bedside Urine Protein +/- 15 Bedside Urine Urobilinogen +/- 1mg Bedside Urine Nitrite - Negative Bedside Urine Leukocytes +/- 15 Esterase Point of care testing: Urine Dip Bedside Urine Glucose 100 mg/dl Bedside Urine Bilirubin + 1 Bedside Urine Ketone +/- 5 Urine Specific [place] 1.030 Bedside Urine Occult Blood - Negative Bedside Urine pH 5.5 Bedside Urine Protein +/- 15 Bedside Urine Urobilinogen +/- 1mg Bedside Urine Nitrite - Negative Bedside Urine Leukocytes +/- [address] scan - abdomen/pelvis: Radiologist's Impression: [place] [address] CT Scan Report Signed Patient: Isma CoreasMR#: [id number] : 1970Acct:[id number] Age/Sex: 50 / MDate of Service: 07/19/20 Loc: ED Accession Number: [id number] Procedure: CT abdomen pelvis w con Ordering Provider: Reg Adam MD PROCEDURE: CT ABDOMEN PELVIS W CON INDICATIONS: Abdominal pain TECHNIQUE: After the administration of intravenous contrast, 5 mm thick sections acquired from the diaphragm to the symphysis. 5 mm coronal and sagittal reformats were acquired. For radiation dose reduction, the following was used: automated exposure control, adjustment of mA and/or kV according to patient size. COMPARISON: None. FINDINGS: Image quality: Excellent. ABDOMEN: Lung bases: Lung bases are clear. Heart size is normal. Solid organs: There is diffuse fatty infiltration of the liver. The gallbladder appears normal. Biliary system is non dilated. Pancreas enhances normally. Spleen is normal in size and enhancement. No adrenal nodules. Kidneys demonstrate normal size and enhancement, without hydronephrosis. Peritoneum and bowel: A few diverticula are seen in the colon without signs of acute diverticulitis. Normal appendix. There are no signs of bowel obstruction. There is no ascites or pneumoperitoneum Nodes and vessels: No retroperitoneal or mesenteric adenopathy by size criteria. Aorta and inferior vena cava are normal in size. Miscellaneous: No ventral hernias. PELVIS: Genitourinary: Bladder wall thickness is normal. Miscellaneous: No inguinal hernias or adenopathy. Bones: No suspicious bony lesions. No vertebral body compression fractures. Mild degenerative changes are seen in the pubic symphysis and included spine. IMPRESSION: 1. No acute abnormality is identified in the abdomen or pelvis. 2. Colonic diverticulosis without signs of acute diverticulitis. 3. Diffuse hepatic steatosis. Dictated by: Loco Vasquez M.D. on 07/19/2020 at 20:13 Approved by: Loco Vasquez M.D. on 07/19/2020 at 20:17 ECG Data Attestation: I personally reviewed and interpreted this ECG as follows: Interpretation: Normal sinus rhythm, no ST elevation. MDM Narrative Medical decision making narrative: Appropriate for discharge home. will be managing narcotic medication. Contracts for safety. No SI and no HI. No hallucinations. Social Work did see patient and also agrees patient would benefit better home management. 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 Lipase nonspecific. CT scan negative for pancreatitis Not toxic. Abdominal pain discomfort resolved after Ativan Discharge Plan Departure Patient Disposition: Home Clinical Impression: Opiate withdrawal Discharge Date/Time: 07/19/20 22:02 Instructions: DI for Drug or Alcohol Withdrawal Activity Restrictions/Additional Instructions: See family doctor next Wednesday as scheduled. No driving while on controlled substances/narcotics. No operating machinery. No driving tonight. Return if worse or if any questions or concerns or if any hallucinations or depressive thoughts or any thoughts of hurting yourself or others. May repeat Ativan tablet in 6 hours that was given to you tonight. Prescriptions: New lorazepam 1 mg tablet 1 mg PO TID PRN (Reason: anxiety) Qty: 8 RF: 0 ondansetron 4 mg tablet,disintegrating 4 mg PO Q8H PRN (Reason: nausea and vomiting) Qty: 10 RF: 0 No Action buspirone 7.5 mg tablet See Rx Instructions .ROUTE .COMPLEX Qty: 60 RF: 0 paroxetine HCl 40 mg tablet 40 mg PO DAILY Qty: 90 RF: 3 Referrals: David Hartman, [Primary Care Provider] -
[2020-07-19] MEDS: LORazepam 2 MG/ML INJ 0.5 MG IV (18:51)
[2020-07-19 19:04] LABS: Creatine Kinase 817 U/L (55-170)
[2020-07-19 19:08] LABS: Ethanol (ETOH) < 10 mg/dL
[2020-07-19 19:16] LABS: Troponin I < 0.012 ng/mL (0.01-0.034)
[2020-07-19 19:19] LABS: CKMB % Relative Index 0.4 % (1.5-5.0); Creatine Kinase MB 3.44 ng/mL (<2.37)
[2020-07-19 19:19] LABS: Bacteria Urine None Seen
[2020-07-19 19:34] LABS: Appearance Urine UA CLEAR; Bilirubin Urine UA NEGATIVE (NEGATIVE); Color Urine UA YELLOW; Glucose Urine UA NEGATIVE (Negative); Ketones Urine UA NEGATIVE (NEGATIVE); Leukocyte Esterase Urine UA NEGATIVE (NEGATIVE); Nitrite Urine UA NEGATIVE (Negative); Occult Blood Urine UA NEGATIVE (Negative); Protein Urine UA TRACE (Negative); Specific Gravity Urine UA >=1.030 (1.000-1.035); Urobilinogen Urine UA 0.2 E.U./dL (0.2)
[2020-07-19 19:36] LABS: Culture Indicated Urine Cult Not Indicated; Hyaline Casts Urine 1-5/LPF; RBC Urine 0-1/HPF (0-5/HPF); Squamous Epithelial Cell Urine 0-1 /HPF (0-5/HPF); WBC Urine 0-1/HPF (0-5/HPF)
[2020-07-19 19:37] LABS: Mucus Urine 2+ (Negative)
--- NOTE | 2020-07-19 19:56 | CM.SWNOTE ---
SCALE ADJUSTER assessment SCALE ADJUSTER - Twill Cutter Assessment SCALE ADJUSTER - Twill Cutter Assessment Start: 07/19/20 19:40 Freq: Status: Active Protocol: Document 07/19/20 19:41 GRISEL (Rec: 07/19/20 19:56 GRISEL [id number]) SCALE ADJUSTER/Twill Cutter Assessment Time Spent with Patient Start date 07/19/20 Visit Start Time 19:00 End date 07/19/20 Visit End Time 19:30 Total time Care Management spent on 30 patient visit-in minutes Substance Abuse Screening Include Onset, Duration, Intensity Presenting Problem Patient presents to ED today after attempted to detox cold turkey from percoset. Patient has been experiencing physical illness and anxiety since stopping the medicine. Precipitating Event(s) Patient started taking percoset in December,, due to significant shoulder pain that was not resolving with PT . In April,, patient had a significant surgery on his shoulder that repaired the issue and continued taking pain medication until 07/17/20. Patient stopped taking the medication, and immediately began to feel symptoms of withdrawal. Patient Strengths Patient is athletic and highly values being able to use his body. Patient is also dedicated to feeling better, stating he will do whatever it takes to not feel as he does now. Current Behavioral Health Provider(s) Patient Dr. Hartman as his Include Facility, Provider, Ph. # PCP- and has a f/u appt scheduled for next week. Family Hx of Behavioral Abuse None Rehab Facilities? ((Date(s), Location(s) None ) History of Withdrawal? Seizures? None. Patient and both report that patient does not have an addictive personality , and this is his first experience of physical addiction and withdrawal. Longest Period of Sobriety Patient has had no substance use concerns prior to today's visit. Psychosocial information & Support Patient is a 50 y/o male who Systems lives at home with his and children. Patient and each own and operate multiple businesses, and patient reports being very active. Patient has had several surgeries in the past few years, and reports discontinuing pain medication with in a day of surgery prior most recent use. School/Work Patient owns multiple business 's Legal Concerns Legal Matters - Outstanding Issues None Mental Status Orientation (Person/Place/Time) Oriented x3 Stated Mood Ok Affect (Congruent with Mood?) euthymic, full range, stable Thought Content - Specify/Describe No obsessions, hallucinations, Obsessions, Delusions, Hallucinations or delusions reported or observed during assessment. Thought Processes (Yopbsrz-Gclqtfse-Evoj Logical-Goal Directed Dcakcfyd-Ypinbdto-Kdeqtweoru- Iflaiyksqjxcwx-Edsonpb-Yhdsceqfkoxe- Thought Blocking) Speech (Datmhc-Ollx-Lrnwtcf-Rapid-Soft- Normal Loud-Pressured) Motor (Qlwlnn-Gebkqywbz-Wrmm-Other) Normal Insight (Nhmb-Qdam-Pjmz/Limited) Good Judgement (Znai-Sfhw-Rhro/Limited) Good Impulse Control (Adequate-Impaired) Adequate Memory (Sttizhxru-Hftjuv-Ooegsa, Intact x3 Impaired-Intact) Concentration (Intact-Impaired) Intact Attention (Intact-Impaired) Intact Behavior (Appropriate-Inappropriate) Appropriate Risk Assessment Suicidal Ideation (Plan) No Homicidal Ideation (Plan) No Comment Patient denies SI/HI. Patient states he has recently felt like he does not want to wake up but elaborates and explains that he does not want to feel the withdrawal symptoms and that he has not intention of suicide. Intervention Intervention SCALE ADJUSTER meets with patient. Patient's at bedside and patient provides consent for to be present during assessment. SCALE ADJUSTER and patient discuss patient's current feeling of withdrawal and plan for treatment. Patient reports he was instructed by PCP to come to ED to get stable before appt. on Monday 07/23. SCALE ADJUSTER, patient and family discuss opioid addition and options for stabilization. SCALE ADJUSTER provides education about detox, and patient open to this, but states he would prefer to go home at night if possible. Patient's informs SCALE ADJUSTER that she is able to be blood bank laboratory professional for any potential substances given for detox support. SCALE ADJUSTER exits room and staffs with Dr. Adam. Due to patients current experience with opioids being a first episode of addiction rather than chronic use, patient's connection with PCP, and patient's support; patient is being considered for d/c to home with a benzo taper to help stabilize him until Wednesday. Plan RA Plan SCALE ADJUSTER will follow up with Dr. Adam, and Dr. Adam to staff with PCP. Patient open to detox, but would prefer to be home in evenings. Dr. Adam considering providing PO medication through 07/23, and Dr. Adam will staff with patient's PCP. LORRIE Mejia
[2020-07-19 20:23] LABS: UR Morphine/Opiate cutoff 300 Positive (Negative); Ur Creatinine Normal (Normal); Ur Specific Gravity Normal (Normal); Urine Tetrahydrocannabinol Positive (Negative); Urine pH Normal (Normal)
[2020-07-19 20:24] LABS: Urine Amphetamines Negative (Negative); Urine Barbiturates Negative (Negative); Urine Benzodiazepines Negative (Negative); Urine Cocaine Negative (Negative); Urine MDMA Negative (Negative); Urine Methadone Positive (Negative); Urine Methamphetamines Negative (Negative); Urine Oxycodone Positive (Negative); Urine Phencyclidine Negative (Negative); Urine Tricyclic Antidepressant Negative (Negative)
[2020-07-19] MEDS: LORazepam 0.5 MG TABLET 1 MG PO ×2 (21:33→21:34)
[2020-07-19] MEDS: ONDANSETRON 4 MG ODT PREPACK 1 BOTTLE MISC (21:33)
[2020-07-19 21:59] VITALS: PULSE 83; RESP 18; O2SAT 98
--- NOTE | 2020-07-19 22:15 | PC.NURSE ---
Patient was being monitored and had vitals taken every 30 minutes. His vitals were stable and within normal limits the entire time he was in the ED. His heart rate was slightly elevated but returned to normal limits after being treated with ativan. The patient was discharged off the monitor before the vital were copied into the records so all but 1st and last vitals were recorded.
== END 2020-07-19 22:02 | disposition home or self-care (01) ==
PROVIDERS: Emergency Medicine; Emergency Provider Emergency Medicine; Family Provider Internal Medicine; PCP Family Medicine
DX: F11.23 Opioid dependence with withdrawal (principal); R11.2 Nausea with vomiting, unspecified; F41.9 Anxiety disorder, unspecified; R06.02 Shortness of breath
CPT/HCPCS: 36415; 74177; 80053; 80305; 80320; 81003; 81015; 82550; 82553; 83690; 84484; 85025; 85610; 85730; 93005; 93010; 96361; 96374; 96375; 99284; J2060; J2405

== ENCOUNTER → 2020-12-20 14:53 | Outpatient (CLI) | payer OTHER, SELFPAY ==
--- NOTE | 2020-12-20 14:55 | DI.RAD.S_ITS ---
PROCEDURE: XR KNEE RT 3V INDICATIONS: pain stiffness r/o bony abnormality TECHNIQUE: 3 views of the knee were acquired. COMPARISON: None. FINDINGS: Bones: No fractures or dislocations. No suspicious bony lesions. Mild narrowing of the medial femoral tibial joint and tricompartmental periarticular osteophyte formation. Prior ACL reconstruction. Soft tissues: Small joint effusion. No suspicious soft tissue calcifications. IMPRESSION: 1. Mild tricompartmental knee joint degeneration and prior ACL reconstruction. 2. Small joint effusion. Dictated by: Efren Almanza [facility] Interpreted: Loco Vasquez MD on 12/20/2020 at 15:40 Approved by: Loco Vasquez M.D. on 12/20/2020 at 16:12
== END ==
PROVIDERS: Family Provider Internal Medicine; PCP Family Medicine; Referring Provider Family Medicine; Visit Provider Physician Assistant
DX: M25.561 Pain in right knee (principal); M17.11 Unilateral primary osteoarthritis, right knee; M25.461 Effusion, right knee
CPT/HCPCS: 73562

== ENCOUNTER → 2021-01-16 14:57 | Outpatient (CLI) | payer OTHER, SELFPAY ==
--- NOTE | 2021-01-16 | DI.MRI.S_ITS ---
PROCEDURE: MR KNEE RT WO CON INDICATIONS: Right knee pain and numbness TECHNIQUE: Noncontrast sagittal PD fast spin echo and T2 fast spin echo with fat saturation, sagittal 3-D FLASH with fat saturation; coronal T1 spin echo and PD fast spin echo with fat saturation, and axial PD fast spin echo with fat saturation through the knee. COMPARISON: [facility], CR, XR KNEE RT 3V, 12/20/2020, 14:56. FINDINGS: Image quality: Diagnostic. Menisci: There is peripheral displacement of medial meniscus bowing medial collateral ligament. Oblique tear involving posterior horn of medial meniscus is seen extending to inferior articulating surface. There is no focal lateral meniscal tear. The meniscal root ligaments appear intact. Cruciate ligaments: Patient is status post prior ACL repair with postsurgical changes seen. ACL graft is grossly intact. PCL is intact. Medial structures: The medial collateral ligament appears intact. The posterior oblique ligament, semimembranosus tendon insertions, oblique popliteal ligament, and meniscocapsular junction appear intact. Visualized portions of the pes anserinus tendons appear normal. No abnormal bursal fluid. Lateral structures: The lateral collateral ligament, long and short heads of the biceps femoris tendon appear intact. The popliteus tendon appears normal; the popliteofibular ligament appears intact. The posterosuperior and anteroinferior popliteomeniscal fascicles appear intact. The arcuate and fabellofibular ligaments appear intact, on either side of the lateral inferior geniculate artery. Iliotibial band appears normal. Anterior structures: The quadriceps and patellar tendons appear intact. Patellar alignment is normal. No femoral trochlear dysplasia or ventral trochlear prominence. No edema in the infrapatellar fat pad. Bones and cartilage: Postsurgical changes are noted in lateral femoral condyle and anterior and medial portion of proximal tibia. No marrow edema. No bone marrow contusions or fractures. 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 Joint space: There is small to moderate amount of joint fluid. No Avalos's cyst. Normal appearing synovial plicae are incidentally noted. IMPRESSION: 1. Prior ACL repair with postsurgical changes. ACL graft is grossly intact. PCL is intact. 2. No fracture or dislocation. No gross marrow edema. Small to moderate amount of joint fluid, no gross loose body. Low-grade chondromalacia is seen in medial femoral tibial compartment and patellofemoral compartment. 3. Oblique tear involving posterior horn of medial meniscus extending to inferior articulating surface. Peripheral displacement of medial meniscus bowing medial collateral ligament. There is no focal lateral meniscal tear. Dictated by: Jareth Camargo M.D. on 01/16/2021 at 15:58 Approved by: Jareth Camargo M.D. on 01/16/2021 at 16:03
== END ==
PROVIDERS: Family Provider Internal Medicine; PCP Family Medicine; Referring Provider Orthopaedic Surgery Adult Reconstructive Orthopaedic Surgery; Visit Provider Orthopaedic Surgery Adult Reconstructive Orthopaedic Surgery
DX: S83.511A Sprain of anterior cruciate ligament of right knee, initial encounter (principal); M25.561 Pain in right knee; S83.221A Peripheral tear of medial meniscus, current injury, right knee, initial encounter
CPT/HCPCS: 73721

== ENCOUNTER → 2021-05-22 14:57 | Outpatient (CLI) | payer OTHER, SELFPAY ==
--- NOTE | 2021-05-22 15:00 | DI.RAD.S_ITS ---
PROCEDURE: XR ANKLE RT MIN 3V INDICATIONS: injury to ankle, r/o fx TECHNIQUE: 3 views of the ankle were acquired. COMPARISON: [facility], CR, XR FOOT RT MIN 3V, 05/22/2021, 14:56. FINDINGS: Bones: No fractures or dislocations. Ankle mortise is normally aligned. No suspicious bony lesions. Soft tissues: There is mild periarticular soft tissue swelling laterally. There is a suspected small tibiotalar joint effusion. Achilles tendon appears intact. IMPRESSION: 1. No fracture or dislocation. Dictated by: Xander Silveira M.D. on 05/22/2021 at 15:15 Approved by: Xander Silveira M.D. on 05/22/2021 at 15:17
--- NOTE | 2021-05-22 15:00 | DI.RAD.S_ITS ---
PROCEDURE: XR FOOT RT MIN 3V INDICATIONS: injury to ankle, r/o fx TECHNIQUE: 3 views of the foot were acquired. COMPARISON: [facility], CR, XR ANKLE RT MIN 3V, 05/22/2021, 14:56. FINDINGS: Bones: No fractures or dislocations. No suspicious bony lesions. Soft tissues: No tibiotalar joint effusion. Achilles tendon appears normal. IMPRESSION: 1. No fracture or dislocation. Dictated by: Xander Silveira M.D. on 05/22/2021 at 15:17 Approved by: Xander Silveira M.D. on 05/22/2021 at 15:27
== END ==
PROVIDERS: Family Provider Internal Medicine; PCP Family Medicine; Referring Provider Physician Assistant; Visit Provider Physician Assistant
DX: S99.911A Unspecified injury of right ankle, initial encounter (principal); X58.XXXA Exposure to other specified factors, initial encounter
CPT/HCPCS: 73610; 73630

== ENCOUNTER → 2021-06-23 12:47 | Outpatient (CLI) | payer OTHER, SELFPAY ==
[2021-06-23 13:45] LABS: Add Manual Diff / Slide Review NO; Basophils Absolute Auto 0 /uL (0-100); Basophils Percent Auto 0.7 % (0-2); Eosinophils Absolute Auto 100 /uL (0-450); Eosinophils Percent Auto 2.2 % (2-4); Hematocrit 39.3 % (41-53); Hemoglobin 13.1 g/dL (13.5-17.5); Lymphocytes Absolute Auto 2500 /uL (1100-4500); Lymphocytes Percent Auto 39.1 % (25-40); Mean Corpuscular HGB Conc 33.3 % (30-36); Mean Corpuscular Hemoglobin 29.6 PG (26-34); Mean Corpuscular Volume 88.8 fL (80-100); Monocytes Absolute Auto 500 /uL (0-900); Monocytes Percent Auto 8.2 % (3-14); Neutrophils Absolute Auto 3200 /uL (1500-7000); Neutrophils Percent Auto 49.8 % (50-75); Platelet Count 203 X10^3/uL (150-400); Red Blood Cell Count 4.42 X10^6/uL (4.5-5.9); Red Cell Distribution Width 13.6 % (11.6-14.8); White Blood Cell Count 6.4 X10^3/uL (4.5-11.0)
[2021-06-23 13:54] LABS: Alanine Aminotransferase 25 IU/L (<50); Albumin Globulin Ratio 1.4 (1.0-2.8); Alkaline Phosphatase 74 U/L (38-126); Aspartate Aminotransferase 40 IU/L (17-59); BUN Creatinine Ratio 21.8 (6-22); Bilirubin Total 0.5 mg/dL (0.2-1.3); Blood Urea Nitrogen 17 mg/dL (9-20); Carbon Dioxide 26 mmol/L (22-32); Chloride 107 mmol/L (98-107); Cholesterol 228 mg/dL (140-199); Estimated Glomerular Filt Rate > 60.0 mL/min (>60); Globulin 2.8 g/dL (1.7-4.1); Glucose 105 mg/dL (70-100); HDL Cholesterol 51 mg/dL (40-60); HEMOLYSIS < 15 (0-50); LDL Cholesterol Calculated 138 mg/dL (<100); Potassium 4.4 mmol/L (3.4-5.1); Sodium 138 mmol/L (137-145); Total Protein 6.8 g/dL (6.3-8.2); Triglycerides 195 mg/dL (35-150)
[2021-06-23 14:24] LABS: Prostate Specific Antigen 7.82 ng/mL (0.10-4.00)
== END ==
PROVIDERS: Family Provider Internal Medicine; PCP Family Medicine; Referring Provider Family Medicine; Visit Provider Family Medicine
DX: E78.2 Mixed hyperlipidemia (principal); G43.709 Chronic migraine without aura, not intractable, without status migrainosus
CPT/HCPCS: 36415; 80053; 80061; 84153; 85025

== ENCOUNTER 2021-07-15 16:44 | Emergency (ER) | payer OTHER, SELFPAY ==
[2021-07-15] VITALS (8 sets, daily range): BP systolic 126–143; BP diastolic 65–88; PULSE 71–95; RESP 16–34; TEMP 36.9; O2SAT 96–100
--- NOTE | 2021-07-15 16:54 | ED_ITS ---
HPI - Allergic Reaction General Chief complaint: Allergic Reaction Stated complaint: ALLERGIC REACTION, DIFFICULTY BREATHING Time Seen by Provider: 07/15/21 16:53 Source: patient and family Mode of arrival: Ambulatory Limitations: no limitations History of Present Illness HPI narrative: This is a 51-year-old male who comes with complaint of allergic reaction/difficulty breathing after a wasp sting yesterday on the left side of his neck patient has developed increasing swelling of the left ear some swelling on the left side of his neck and is feeling increasingly tight in his throat at the base. He states there is also a red line running to that area. Patient has had a prior lost being at the base of his neck so he thought his prior swelling and tightness in his neck with secondary to the proximity and physical location. He had not been aware of any wasps allergies in the past. He does not have any no other known medication allergies. He is on Paxil daily for medication for anxiety. Patient denies any other drug allergies. He states that episode occurred yesterday. He took Benadryl last night. He has not taken any today. Related Data Previous Rx's Medication Instructions Recorded lorazepam 1 mg tablet 1 mg PO TID PRN #8 tab 07/19/20 ondansetron 4 mg disintegrating 4 mg PO Q8H PRN #10 tab 07/19/20 tablet clonazepam 1 mg tablet 1 mg PO BID #30 tab 07/23/20 clonidine HCl 0.1 mg tablet See Rx Instructions .ROUTE 08/19/20 .COMPLEX #60 tab buspirone 7.5 mg tablet 7.5 mg PO BID #180 tab 11/04/20 paroxetine HCl 40 mg tablet 40 mg PO DAILY #90 tab 01/13/21 naproxen 500 mg tablet 500 mg PO BID #180 tab 02/24/21 epinephrine 0.3 mg/0.3 mL 0.3 mg IM Q5-15M PRN #2 ea 07/15/21 injection, auto-injector (EpiPen) famotidine 20 mg tablet (Pepcid) 20 mg PO BID #10 tab 07/15/21 prednisone 50 mg tablet 50 mg PO DAILY #5 tab 07/15/21 Allergies Allergy/AdvReac Type Severity Reaction Status Date / Time No Known Drug Allergies Allergy Verified 05/22/21 15:23 Review of Systems Review of Systems ROS Unobtainable: All systems reviewed & are unremarkable except as noted in HPI and below Patient History Medical History Anxiety (~2001) Anxiety Carpal tunnel syndrome (~2012) Chicken pox (~1974) Chronic back pain (~2012) Chronic migraine Depression Generalized anxiety disorder Knee effusion, right Migraines Mixed hyperlipidemia (03/28/13) Right ankle injury Right ankle sprain Strain of right knee Strain of tendon of left rotator cuff Surgical History Anesthesia History of carpal tunnel repair (~2012) History of mandibular surgery (~1989) History of nasal surgery (~2001) History of surgery (~2013) Status post knee surgery (~2012) Family History Father Prostate cancer Social History Smoking Status: Never smoker Smoking Status: Never smoker alcohol intake frequency: 0-2 drinks per day Substance Use Type: does not use Exam Narrative Exam Narrative: GEN: well nourished, well appearing male, alert and oriented x 3, patient appears to be in mild distress. HEENT: Atraumatic, pupils are equal round reactive to light, extraocular movements are intact, nares are clear, TMs are clear with no fluid, patient has left use swelling lies to the pinna with some mild erythema and swelling lateral neck and erythema radiating to the anterior neck. There is no conjunctival pallor. Throat is clear without any exudates, erythema, tonsillar enlargement or uvular deviation, patient is slightly hoarse on exam, no stridor. HEART: Regular rate and rhythm without murmur, clicks, rubs. LUNGS:Lungs clear to auscultation, no wheezes, rales, crackles, chest moves symmetrically ABD:bowel sounds normal, soft, non-tender, no guarding, rebound, rigidity, no masses noted, no hepatosplenomegaly MSCL: Non-tender, no muscle atrophy, muscles strength 5/5 upper and lower extremities, full range of motion, normal gait NEURO:CN 2-12 intact, sensation normal Initial Vital Signs Initial Vital Signs: Vital Signs Temperature 98.5 F 07/15/21 17:10 Pulse Rate 91 H 07/15/21 17:10 Respiratory Rate 22 07/15/21 17:10 Blood Pressure 143/65 H 07/15/21 17:10 Pulse Oximetry 100 07/15/21 17:10 Course Orders Ordered: Discontinued Medications Diphenhydramine HCl (Diphenhydramine 50 Mg/Ml Vial) 25 mg IV NOW ONE Stop: 07/15/21 16:55 Last Admin: 07/15/21 17:14 Dose: 25 mg Documented by: BRANDON Epinephrine HCl (Epinephrine 1 Mg/Ml) 0.5 mg IM NOW ONE Stop: 07/15/21 16:55 Last Admin: 07/15/21 17:14 Dose: 0.5 mg Documented by: BRANDON Famotidine (Famotidine 20 Mg/2 Ml Vial) 20 mg IV NOW ONE Stop: 07/15/21 16:55 Last Admin: 07/15/21 17:13 Dose: 20 mg Documented by: BRANDON Sodium Chloride (Normal Saline 0.9%) 1,000 mls @ 150 mls/hr IV CONT KRISTYN Last Admin: 07/15/21 17:14 Dose: 150 mls/hr Documented by: BRANDON Methylprednisolone (Methylprednisolone 125 Mg/2 Ml Vial) 125 mg IV NOW ONE Stop: 07/15/21 16:55 Last Admin: 07/15/21 17:14 Dose: 125 mg Documented by: BRANDON Reevaluation(s) Reevaluation #1: Patient is feeling much he still has year but his airway feels significantly better. Time: 18:43 Reevaluation #2: Patient tightness in throat is resolved. Time: 18:41 Vital Signs Vital signs: Vital Signs - 8 hr 07/15/21 17:10 07/15/21 17:11 07/15/21 17:12 Temperature 98.5 F Pulse Rate 91 H 95 H 93 H Respiratory Rate 22 Blood Pressure 143/65 H 129/84 Pulse Oximetry 100 98 98 07/15/21 17:30 07/15/21 18:00 07/15/21 18:23 Temperature Pulse Rate 87 74 75 Respiratory Rate 34 H 24 20 Blood Pressure 138/88 Pulse Oximetry 97 98 98 07/15/21 18:30 07/15/21 18:31 Temperature Pulse Rate 72 71 Respiratory Rate 18 16 Blood Pressure 126/77 Pulse Oximetry 96 97 MDM - Allergic Reaction MDM Narrative Medical decision making narrative: This is a 51-year-old male who comes in with complaint of allergic reaction to wasp sting the sting occurred yesterday he took Benadryl but has not any additional medications, he has swelling inferior to his ear and of the left ear itself but has developed some redness streaking down his neck and towards his sternal notch. Patient states it feels tight and he has a little bit hoarse at that area. He notes that prior wasp sting was at the same locations so he was unsure if he is having anaphylaxis or just a localized reaction on his prior episodes he was given epinephrine, Solu-Medrol, Benadryl Pepcid and had significant improvement of his symptoms. Discussed that this isn't typical of a true anaphylactic reaction but would treat him as such. He was given a prescription for an EpiPen and we discussed appropriate usage. Patient and I also discussed return precautions. Discharge Plan Departure Patient Disposition: Home Clinical Impression: Allergic reaction, Sting from hornet, wasp, or bee Instructions: DI for Anaphylaxis Activity Restrictions/Additional Instructions: Your symptoms today are atypical for anaphylaxis as they took 12 hours to evolve but she did respond epinephrine today. Take prednisone once daily x 5 days Take Pepcid twice daily x5 days Take Benadryl 1-2 tablets every 6 hours as needed for symptoms. You have been prescribed an EpiPen. Use this this as directed. If you require the use of her EpiPen you do need to come to the emergency department to be treated. Prescriptions sent to [facility] in [place]. Please return for worsening swelling of her neck, throat, tongue, airway or lips, lightheadedness or passing out, persistent vomiting, chest pain or, increasing swelling of your face neck, persistent diarrhea or other new or concerning symptoms. Prescriptions: New famotidine [Pepcid] 20 mg tablet 20 mg PO BID Qty: 10 RF: 0 prednisone 50 mg tablet 50 mg PO DAILY Qty: 5 RF: 0 epinephrine [EpiPen] 0.3 mg/0.3 mL auto-injector 0.3 mg IM Q5-15M PRN (Reason: anaphylaxis) Qty: 2 RF: 0 No Action clonidine HCl 0.1 mg tablet See Rx Instructions .ROUTE .COMPLEX Qty: 60 RF: 1 buspirone 7.5 mg tablet 7.5 mg PO BID Qty: 180 RF: 3 paroxetine HCl 40 mg tablet 40 mg PO DAILY Qty: 90 RF: 3 naproxen 500 mg tablet 500 mg PO BID Qty: 180 RF: 1 clonazepam 1 mg tablet 1 mg PO BID Qty: 30 RF: 1 lorazepam 1 mg tablet 1 mg PO TID PRN (Reason: anxiety) Qty: 8 RF: 0 ondansetron 4 mg tablet,disintegrating 4 mg PO Q8H PRN (Reason: nausea and vomiting) Qty: 10 RF: 0 Referrals: David Hartman, [Primary Care Provider] -
[2021-07-15] MEDS: FAMOTIDINE 20 MG/2 ML VIAL IV (17:13)
[2021-07-15] MEDS: diphenhydrAMINE 50 MG/ML VIAL 25 MG IV (17:14)
[2021-07-15] MEDS: methylPREDNISolone 125 MG/2 ML VIAL IV (17:14)
[2021-07-15] MEDS: SODIUM CHLORIDE 0.9% 1,000 ML 150 ML IV (17:14)
[2021-07-15] MEDS: EPINEPHrine 1 MG/ML 0.5 MG IM (17:14)
== END 2021-07-15 18:55 | disposition home or self-care (01) ==
PROVIDERS: Emergency Provider Emergency Medicine; Family Provider Internal Medicine; PCP Family Medicine
DX: T63.441A Toxic effect of venom of bees, accidental (unintentional), initial encounter (principal); T78.40XA Allergy, unspecified, initial encounter; R06.00 Dyspnea, unspecified
CPT/HCPCS: 96361; 96372; 96374; 96375; 99284; J0171; J1200; J2930

== ENCOUNTER → 2021-08-11 08:29 | Outpatient (CLI) | payer OTHER, SELFPAY ==
[2021-08-11 10:13] LABS: Cholesterol 218 mg/dL (140-199); HDL Cholesterol 55 mg/dL (40-60); LDL Cholesterol Calculated 124 mg/dL (<100); Triglycerides 193 mg/dL (35-150)
[2021-08-11 10:42] LABS: Prostate Specific Antigen Scrn 11.6 ng/mL (0.1-4.0)
== END ==
PROVIDERS: Family Provider Internal Medicine; PCP Family Medicine; Referring Provider Family Medicine; Visit Provider Family Medicine
DX: E78.2 Mixed hyperlipidemia (principal); R97.20 Elevated prostate specific antigen [PSA]; Z12.5 Encounter for screening for malignant neoplasm of prostate
CPT/HCPCS: 36415; 80061; G0103

== ENCOUNTER 2022-01-20 06:14 | Emergency (ER) | payer BC, SELFPAY ==
[2022-01-20 06:35] VITALS: BP 120/83; PULSE 95; RESP 18; TEMP 36.9; O2SAT 95; BMI 33.2
--- NOTE | 2022-01-20 06:41 | DI.RAD.S_ITS ---
PROCEDURE: XR CHEST 1V INDICATIONS: cough TECHNIQUE: One view of the chest was acquired. COMPARISON: None. FINDINGS: Surgical changes and devices: None. Lungs and pleura: Lungs are clear. No pleural effusions or pneumothorax. Mediastinum: Mediastinal contours appear normal. Heart size is normal. Bones and chest wall: No suspicious bony lesions. Overlying soft tissues appear unremarkable. IMPRESSION: No acute cardiopulmonary disease process. Dictated by: Olivia Pires MD, PhD on 01/20/2022 at 8:30 Approved by: Olivia Pires MD, PhD on 01/20/2022 at 8:30
[2022-01-20 07:08] LABS: COVID19 -Nasal RAPID Negative (Negative)
--- NOTE | 2022-01-20 07:51 | PC.NURSE ---
see triage note, pt resp even and unlabored, with nadn
--- NOTE | 2022-01-20 08:29 | ED_ITS ---
HPI - General Adult General Chief complaint: Upper Respiratory Symptoms Stated complaint: coughing, headaches, hard to breath Time Seen by Provider: 01/20/22 07:04 Source: patient Mode of arrival: Ambulatory History of Present Illness HPI narrative: 52-year-old male. Several months ago was diagnosed with COVID-19. Since that time he has had continued cough. It has now become productive. No fevers. Does have a headache. His a problems sleeping at night. Still does not have his sense of taste or smell. Has not tried anything for symptoms except occasionally taking Tylenol cold and Sinus. Related Data Home Medications Medication Instructions Recorded Confirmed naproxen 500 mg tablet 500 mg PO BID PRN tab 08/21/21 Previous Rx's Medication Instructions Recorded epinephrine 0.3 mg/0.3 mL 0.3 mg (0.3 mL) IM Q5-15M PRN #2 ea 07/15/21 injection, auto-injector (EpiPen) prednisone 50 mg tablet 50 mg PO DAILY #5 tab 07/15/21 tamsulosin 0.4 mg capsule 0.4 mg PO BEDTIME #30 cap 08/13/21 buspirone 15 mg tablet 15 mg PO BID #180 tab 12/10/21 paroxetine HCl 40 mg tablet 40 mg PO DAILY #90 tab 12/10/21 albuterol sulfate 90 mcg/actuation 2 puff INHALATION Q4-6H PRN #8.5 g 01/20/22 aerosol inhaler prednisone 20 mg tablet 20 mg PO DAILY 5 Days #5 tab 01/20/22 Allergies Allergy/AdvReac Type Severity Reaction Status Date / Time No Known Drug Allergies Allergy Verified 08/21/21 11:29 Review of Systems Constitutional Constitutional: Denies fever(s) and Reports headache(s) ENT Ears, Nose, Mouth, and Throat: Reports headache(s) Comments: Sinus congestion Cardiovascular Comments: No chest pain Respiratory Comments: Shortness of breath with cough Gastrointestinal Gastrointestinal: Reports system reviewed and no additional complaints, except as documented Integumentary/Breasts Skin/Breast: Reports system reviewed and no additional complaints, except as documented Neurologic Neurologic: Reports headache(s) Hematologic/Lymphatic On Anticoagulants: No Patient History Medical History Anxiety (~2001) Anxiety Carpal tunnel syndrome (~2012) Chicken pox (~1974) Chronic back pain (~2012) Chronic migraine Depression Elevated PSA, between 10 and less than 20 ng/ml Family history of prostate cancer Generalized anxiety disorder Hyperglycemia Knee effusion, right Migraines Mixed hyperlipidemia (03/28/13) Right ankle injury Right ankle sprain Strain of right knee Strain of tendon of left rotator cuff Surgical History Anesthesia History of carpal tunnel repair (~2012) History of mandibular surgery (~1989) History of nasal surgery (~2001) History of surgery (~2013) Status post knee surgery (~2012) Family History Father Prostate cancer Social History Smoking Status: Never smoker Smoking Status: Never smoker alcohol intake frequency: 0-2 drinks per day Substance Use Type: does not use Exam Initial Vital Signs Initial Vital Signs: Vital Signs Temperature 98.4 F 01/20/22 06:35 Pulse Rate 95 H 01/20/22 06:35 Respiratory Rate 18 01/20/22 06:35 Blood Pressure 120/83 01/20/22 06:35 Pulse Oximetry 95 01/20/22 06:35 HENMT Head: normal to inspection and normocephalic Resp Effort & Inspection: normal respiratory effort and not tachypneic Auscultation: rhonchi and wheezes Cardio Palpation: normal PMI Rate: regular rate Rhythm: regular rhythm Skin General: no rashes or lesions noted Neuro General: patient alert, patient awake and moves all extremities Extrem General: normal to inspection and capillary refill normal Psych Appearance: grossly normal and well kempt Course Orders Ordered: ED Orders 01/20/22 06:30 COVID19 -Nasal swab/Pre-Proc Stat 01/20/22 06:41 XR chest 1V Stat Vital Signs Vital signs: Vital Signs - 8 hr 01/20/22 06:35 Temperature 98.4 F Pulse Rate 95 H Respiratory Rate 18 Blood Pressure 120/83 Pulse Oximetry 95 Medical Decision Making Lab Data Labs: Lab Results 01/20/22 Range/Units 06:30 SARS-CoV-2 (PCR) Negative (Negative) Imaging Data Chest x-ray: Radiologist's Impression: [address] [id number] XRay Report Signed Patient: Isma Coreas MR#: [id number] : 1970 Acct:[id number] Age/Sex: 52 / M Date of Service: 01/20/22 Loc: ED Accession Number: [id number] ?? Procedure: XR chest 1V Ordering Provider: Pascual Perez D.O. PROCEDURE:? XR CHEST 1V ? INDICATIONS:? cough ? TECHNIQUE:? One view of the chest was acquired.? ? COMPARISON:? None. ? FINDINGS:? ? Surgical changes and devices:? None.? ? Lungs and pleura:? Lungs are clear.? No pleural effusions or pneumothorax.? ? Mediastinum:? Mediastinal contours appear normal.? Heart size is normal.? ? Bones and chest wall:? No suspicious bony lesions.? Overlying soft tissues appear unremarkable.? ? IMPRESSION:? No acute cardiopulmonary disease process. ? ? Dictated by: Olivia Pires MD, PhD on 01/20/2022 at 8:30 ? ? Approved by: Olivia Pires MD, PhD on 01/20/2022 at 8:30 MDM Narrative Medical decision making narrative: Patient does have coarse breath sounds bilaterally with some wheezing. Chest x- ray shows no signs of pneumonia. His COVID is negative. Unsure as to whether not his symptoms are residual from his COVID several months ago or potentially a new infection. I do feel that expectorants and albuterol and steroids given his wheezing will be helpful. There is no indication for any antibiotics. He was given return precautions and follow-up instructions. He expressed understanding and agreement. Discharge Plan Departure Patient Disposition: Home Clinical Impression: Chest congestion, Cough Instructions: Cough Activity Restrictions/Additional Instructions: I do recommend that you consider taking an [id number] antihistamine to help with her sinus congestion. This could be either Claritin or Charlene or Zyrtec. The generic versions of these medications are appropriate. I also recommend an expectorant such as Robitussin or guaifenesin or Mucinex. Again these could also be purchased [id number]. Use the steroids as directed. Use the albuterol inhaler as needed. Contact your primary doctor for follow-up. Return to the emergency department for any new or worsening symptoms. Prescriptions: New prednisone 20 mg tablet 20 mg PO DAILY 5 Days Qty: 5 0RF albuterol sulfate 90 mcg/actuation HFA aerosol inhaler 2 puff inhalation Q4-6H PRN (Reason: shortness of breath or wheezing) Qty: 8.5 0RF No Action paroxetine HCl 40 mg tablet 40 mg PO DAILY Qty: 90 0RF buspirone 15 mg tablet 15 mg PO BID Qty: 180 0RF tamsulosin 0.4 mg capsule 0.4 mg PO BEDTIME Qty: 30 2RF prednisone 50 mg tablet 50 mg PO DAILY Qty: 5 0RF epinephrine [EpiPen] 0.3 mg/0.3 mL auto-injector 0.3 mg IM Q5-15M PRN (Reason: anaphylaxis) Qty: 2 0RF Rx Instructions: do not exceed 3 doses per episode naproxen 500 mg tablet 500 mg PO BID PRN0RF Referrals: David Hartman DO [Primary Care Provider] -
[2022-01-20 08:30] VITALS: BP 126/83; PULSE 76; RESP 19; O2SAT 96
== END 2022-01-20 08:30 | disposition home or self-care (01) ==
PROVIDERS: Emergency Medicine; Emergency Provider Emergency Medicine; Family Provider Internal Medicine; PCP Family Medicine
DX: R09.89 Other specified symptoms and signs involving the circulatory and respiratory systems (principal); R05.9 Cough, unspecified; Z86.16 Personal history of COVID-19; Z20.822 Contact with and (suspected) exposure to COVID-19
CPT/HCPCS: 71045; 87635; 99281; 99283; C9803

== ENCOUNTER 2022-02-14 13:53 | Emergency (ER) | payer OTHER, SELFPAY ==
[2022-02-14] VITALS (11 sets, daily range): BP systolic 102–137; BP diastolic 56–74; PULSE 79–98; RESP 13–24; TEMP 37.3–38.8; O2SAT 89–97
--- NOTE | 2022-02-14 14:27 | DI.RAD.S_ITS ---
PROCEDURE: XR CHEST 1V INDICATIONS: suspected sepsis TECHNIQUE: One view of the chest was acquired. COMPARISON: [facility], CR, XR CHEST 1V, 01/20/2022, 7:08. FINDINGS: Surgical changes and devices: None. Lungs and pleura: Lungs are clear. No pleural effusions or pneumothorax. Mediastinum: Mediastinal contours appear normal. Heart size is normal. Bones and chest wall: No suspicious bony lesions. Overlying soft tissues appear unremarkable. IMPRESSION: No evidence acute pulmonary process. Dictated by: Brady Gauthier M.D. on 02/14/2022 at 15:25 Approved by: Brady Gauthier M.D. on 02/14/2022 at 15:31
[2022-02-14] MEDS: SODIUM CHLORIDE 0.9% 1,000 ML 1000 ML IV (14:50)
[2022-02-14 15:00] LABS: Add Manual Diff / Slide Review NO; Basophils Absolute Auto 0 /uL (0-100); Basophils Percent Auto 0.2 % (0-2); Eosinophils Absolute Auto 100 /uL (0-450); Eosinophils Percent Auto 0.8 % (2-4); Hematocrit 35.1 % (41-53); Hemoglobin 11.9 g/dL (13.5-17.5); Lymphocytes Absolute Auto 700 /uL (1100-4500); Lymphocytes Percent Auto 6.4 % (25-40); Mean Corpuscular HGB Conc 33.9 % (30-36); Mean Corpuscular Volume 85.5 fL (80-100); Monocytes Absolute Auto 600 /uL (0-900); Neutrophils Absolute Auto 9300 /uL (1500-7000); Neutrophils Percent Auto 86.6 % (50-75); Platelet Count 196 X10^3/uL (150-400); Red Cell Distribution Width 13.9 % (11.6-14.8); White Blood Cell Count 10.7 X10^3/uL (4.5-11.0)
[2022-02-14 15:10] LABS: Lactate (Lactic Acid) 1.5 mmol/L (0.7-2.1)
[2022-02-14 15:11] LABS: Alanine Aminotransferase 16 IU/L (<50); Albumin 3.6 g/dL (3.5-5.0); Albumin Globulin Ratio 1.2 (1.0-2.8); Alkaline Phosphatase 68 U/L (38-126); Aspartate Aminotransferase 28 IU/L (17-59); BUN Creatinine Ratio 15.6 (6-22); Bilirubin Total 0.4 mg/dL (0.2-1.3); Blood Urea Nitrogen 10 mg/dL (9-20); Calcium 8.1 mg/dL (8.4-10.2); Carbon Dioxide 30 mmol/L (22-32); Chloride 101 mmol/L (98-107); Estimated Glomerular Filt Rate > 60 mL/min (>60); Glucose 152 mg/dL (70-100); HEMOLYSIS < 15 (0-50); Lipase 49 U/L (23-300); Potassium 3.8 mmol/L (3.4-5.1); Sodium 134 mmol/L (137-145); Total Protein 6.6 g/dL (6.3-8.2)
--- NOTE | 2022-02-14 15:26 | ED_ITS ---
HPI - Fever <Josiah Angelo PA-C - Last Filed: 02/14/22 20:26> General Chief Complaint: Fever Stated Complaint: Fever Over 103 Time Seen by Provider: 02/14/22 14:43 Source: patient Mode of arrival: Ambulatory History of Present Illness HPI Narrative: Patient is a 52-year-old male presenting to the emergency department today for an evaluation of fever and cough. Patient states he was diagnosed with COVID-19 back in October and has been experiencing ?long COVID?. He explains he has been experiencing intermittent symptoms since his initial diagnosis COVID-19. Was seen in the emergency department on 01/20/2022 for similar symptoms and was provided with a prescription for prednisone after was determined that he did not have definitive pneumonia. He explains that the prednisone helped initially, however his symptoms had returned. He explains that over the past week he has been experiencing a fever with increased cough and shortness of breath. He explains that today they noticed a 103? F fever and explains that he has been experiencing a productive cough. He also notes that he has been losing sleep due to his symptoms as he frequently wakes up throughout the night coughing. No chest pain, nausea, vomiting, diarrhea, abdominal pain, constipation, dysuria, hematuria, numbness and tingling in the extremities, sore throat, earache, or any other concerning symptoms reported. No further concerns were voiced at this time. Related Data Home Medications Medication Instructions Recorded Confirmed naproxen 500 mg tablet 500 mg PO BID PRN tab 08/21/21 Previous Rx's Medication Instructions Recorded epinephrine 0.3 mg/0.3 mL 0.3 mg (0.3 mL) IM Q5-15M PRN #2 ea 07/15/21 injection, auto-injector (EpiPen) prednisone 50 mg tablet 50 mg PO DAILY #5 tab 07/15/21 tamsulosin 0.4 mg capsule 0.4 mg PO BEDTIME #30 cap 08/13/21 buspirone 15 mg tablet 15 mg PO BID #180 tab 12/10/21 albuterol sulfate 90 mcg/actuation 2 puff INHALATION Q4-6H PRN #8.5 g 01/20/22 aerosol inhaler paroxetine HCl 40 mg tablet See Rx Instructions .ROUTE 02/09/22 .COMPLEX #90 tab prednisone 20 mg tablet 20 mg PO DAILY #5 tab 02/14/22 Allergies Allergy/AdvReac Type Severity Reaction Status Date / Time No Known Drug Allergies Allergy Verified 02/14/22 14:32 Review of Systems <Josiah Angelo PA-C - Last Filed: 02/14/22 20:26> Constitutional Constitutional: Denies chills, Reports difficulty sleeping, Denies fatigue, Reports fever(s), Denies frequent falls, Denies lethargy and Denies weakness Eyes Eyes: Denies loss of vision ENT Ears, Nose, Mouth, and Throat: Denies dizziness and Denies neck pain Cardiovascular Cardiovascular: Denies chest pain, Denies irregular heart rhythm, Denies lightheadedness, Denies palpitations, Reports dyspnea and Denies orthopnea Respiratory Respiratory: Reports cough (Productive), Reports dyspnea and Denies wheezing Gastrointestinal Gastrointestinal: Denies abdominal pain, Denies change in bowel habits, Denies diarrhea, Denies nausea and Denies vomiting Genitourinary Genitourinary: Denies hematuria, Denies flank pain, Denies urinary incontinence and Denies urinary urgency Musculoskeletal Musculoskeletal: Denies back pain, Denies muscle weakness, Denies neck pain, Denies numbness and Denies tingling Integumentary/Breasts Skin/Breast: Denies pruritus, Denies erythema, Denies rash and Denies wounds Neurologic Neurologic: Denies behavioral changes, Denies confusion, Denies dizziness, Denies frequent falls, Denies loss of vision, Denies numbness, Denies tingling and Denies weakness Psychiatric Psychiatric: Denies behavioral changes and Denies confusion Endocrine Endocrine: Denies fatigue and Denies palpitations Allergic/Immunologic Allergic/Immunologic: Denies wheezing Patient History <Josiah Angelo PA-C - Last Filed: 02/14/22 20:26> Medical History Anxiety (~2001) Anxiety Carpal tunnel syndrome (~2012) Chicken pox (~1974) Chronic back pain (~2012) Chronic migraine Depression Elevated PSA, between 10 and less than 20 ng/ml Family history of prostate cancer Generalized anxiety disorder Hyperglycemia Knee effusion, right Migraines Mixed hyperlipidemia (03/28/13) Right ankle injury Right ankle sprain Strain of right knee Strain of tendon of left rotator cuff Surgical History Anesthesia History of carpal tunnel repair (~2012) History of mandibular surgery (~1989) History of nasal surgery (~2001) History of surgery (~2013) Status post knee surgery (~2012) Family History Father Prostate cancer Social History Smoking Status: Never smoker Smoking Status: Never smoker alcohol intake frequency: 0-2 drinks per day Substance Use Type: does not use Exam <Josiah Angelo PA-C - Last Filed: 02/14/22 20:26> Narrative Exam Narrative: GENERAL: 52 year old patient appears stated age. Well-developed patient, in mild distress. HEAD: Atraumatic. Normocephalic. EYES: Pupils equal round and reactive. Extraocular motions intact. No scleral icterus. No injection or drainage. ENT: Nose without bleeding, purulent drainage. Throat without erythema, tonsillar hypertrophy or exudate. Airway patent. NECK: Trachea midline. Non tender CARDIOVASCULAR: Regular rate and rhythm without murmurs, gallops, or rubs. RESPIRATORY: Inspiratory wheezing auscultated throughout the bilateral upper lobes of the lungs with expiratory rhonchi auscultated throughout all lobes of the lungs bilaterally. No significant increased work of breathing, no signs of tachypnea. GASTROINTESTINAL: Abdomen soft, non-tender, nondistended. EXTREMITIES: No edema or joint tenderness. No clubbing of the nails are signs of cyanosis. BACK: Nontender without deformity or crepitance. No flank tenderness. NEURO: AOx3. SKIN: No rash or erythema of visible areas Initial Vital Signs Initial Vital Signs: Vital Signs Temperature 101.9 F H 02/14/22 14:22 Pulse Rate 98 H 02/14/22 14:22 Respiratory Rate 02/14/22 14:22 Blood Pressure 129/68 02/14/22 14:22 Pulse Oximetry 89 L 02/14/22 14:22 <Jyothi Lopez MD - Last Filed: 02/21/22 07:23> Initial Vital Signs Initial Vital Signs: Vital Signs Temperature 101.9 F H 02/14/22 14:22 Pulse Rate 98 H 02/14/22 14:22 Respiratory Rate 22 02/14/22 14:22 Blood Pressure 129/68 02/14/22 14:22 Pulse Oximetry 89 L 02/14/22 14:22 Course <Josiah Angelo PA-C - Last Filed: 02/14/22 20:26> Course Course Narrative: CBC, CMP, lactate, lipase, procalcitonin, respiratory panel, urine dip, blood cultures, EKG, chest x-ray obtained. 1000 mL IV normal saline administered. Results of respiratory panel were discussed with patient and he was informed that he did test positive for rhino virus. I discussed plan to start the patient on IV magnesium and Solu-Medrol with plans to administer a DuoNeb treatment. I explained that after treatment if the patient is able to keep his oxygen saturation above 91% while ambulatory we will plan for discharge and patient agrees with that plan. Patient states that he is feeling significantly better following administration IV normal saline, magnesium, Solu-Medrol, and DuoNeb breathing treatment. Oxygen saturation stayed above 91% while ambulating and patient states that he is comfortable being discharged home. Orders Ordered: Discontinued Medications Albuterol/Ipratropium (Albuterol/Ipratropium 3 Ml Ampul) 3 ml INH NOW ONE Stop: 02/14/22 16:04 Last Admin: 02/14/22 16:20 Dose: 3 ml Documented by: PAT Sodium Chloride (Normal Saline 0.9%) 1,000 mls @ 1,000 mls/hr IV BOLUS ONE Stop: 02/14/22 15:25 Last Infusion: 02/14/22 16:15 Dose: 0 mls/hr Documented by: Admin: 02/14/22 14:50 Dose: 1,000 mls/hr Documented by: PAULA Magnesium Sulfate (Magnesium Sulfate) 2 gm in 50 mls @ 150 mls/hr IV NOW ONE Stop: 02/14/22 16:22 Last Infusion: 02/14/22 16:45 Dose: 0 mls/hr Documented by: COREEN Cosigned by: SHEREE Admin: 02/14/22 16:19 Dose: 150 mls/hr Documented by: COREEN Cosigned by: ANNIKA Methylprednisolone (Methylprednisolone 125 Mg/2 Ml Vial) 125 mg IV NOW ONE Stop: 02/14/22 16:04 Last Admin: 02/14/22 16:19 Dose: 125 mg Documented by: COREEN Vital Signs Vital signs: Vital Signs - 8 hr 02/14/22 14:22 02/14/22 14:37 02/14/22 14:39 Temperature 101.9 F H Pulse Rate 98 H 98 H 98 H Respiratory Rate 22 24 Blood Pressure 129/68 137/63 Pulse Oximetry 89 L 90 L 02/14/22 15:00 02/14/22 15:30 02/14/22 16:00 Temperature 99.1 F Pulse Rate 91 H 83 81 Respiratory Rate 16 17 13 Blood Pressure 108/63 102/56 L 112/61 Pulse Oximetry 91 95 95 02/14/22 16:25 02/14/22 16:30 02/14/22 16:52 Temperature Pulse Rate 79 89 Respiratory Rate 22 22 Blood Pressure 103/59 L 107/61 Pulse Oximetry 97 97 95 02/14/22 17:00 02/14/22 17:30 Temperature Pulse Rate 84 85 Respiratory Rate 22 Blood Pressure 116/74 Pulse Oximetry 92 93 <Jyothi Lopez MD - Last Filed: 02/21/22 07:23> Orders Ordered: Discontinued Medications Albuterol/Ipratropium (Albuterol/Ipratropium 3 Ml Ampul) 3 ml INH NOW ONE Stop: 02/14/22 16:04 Last Admin: 02/14/22 16:20 Dose: 3 ml Documented by: PAT Sodium Chloride (Normal Saline 0.9%) 1,000 mls @ 1,000 mls/hr IV BOLUS ONE Stop: 02/14/22 15:25 Last Infusion: 02/14/22 16:15 Dose: 0 mls/hr Documented by: Admin: 02/14/22 14:50 Dose: 1,000 mls/hr Documented by: PAULA Magnesium Sulfate (Magnesium Sulfate) 2 gm in 50 mls @ 150 mls/hr IV NOW ONE Stop: 02/14/22 16:22 Last Infusion: 02/14/22 16:45 Dose: 0 mls/hr Documented by: COREEN Cosigned by: SANGITAETERSON Admin: 02/14/22 16:19 Dose: 150 mls/hr Documented by: COREEN Cosigned by: ANNIKA Methylprednisolone (Methylprednisolone 125 Mg/2 Ml Vial) 125 mg IV NOW ONE Stop: 02/14/22 16:04 Last Admin: 02/14/22 16:19 Dose: 125 mg Documented by: COREEN Vital Signs Vital signs: Vital Signs - 8 hr 02/14/22 14:22 02/14/22 14:37 02/14/22 14:39 Temperature 101.9 F H Pulse Rate 98 H 98 H 98 H Respiratory Rate 22 24 Blood Pressure 129/68 137/63 Pulse Oximetry 89 L 90 L 02/14/22 15:00 02/14/22 15:30 02/14/22 16:00 Temperature 99.1 F Pulse Rate 91 H 83 81 Respiratory Rate 16 17 13 Blood Pressure 108/63 102/56 L 112/61 Pulse Oximetry 91 95 95 02/14/22 16:25 02/14/22 16:30 02/14/22 16:52 Temperature Pulse Rate 79 89 Respiratory Rate 22 22 Blood Pressure 103/59 L 107/61 Pulse Oximetry 97 97 95 02/14/22 17:00 02/14/22 17:30 Temperature Pulse Rate 84 85 Respiratory Rate 22 Blood Pressure 116/74 Pulse Oximetry 92 93 MDM - Fever <Josiah Angelo PA-C - Last Filed: 02/14/22 20:26> Lab Data Result diagrams: 02/14/22 14:45 02/14/22 14:45 Labs: Lab Results 02/14/22 02/14/22 02/14/22 Range/Units 14:45 14:45 14:45 WBC 10.7 (4.5-11.0) X10^3/uL RBC 4.10 L (4.5-5.9) X10^6/uL Hgb 11.9 L (13.5-17.5) g/dL Hct 35.1 L (41-53) % MCV 85.5 (80-100) fL MCH 29.0 (26-34) PG MCHC 33.9 (30-36) % RDW 13.9 (11.6-14.8) % Plt Count 196 (150-400) X10^3/uL Neut % (Auto) 86.6 H (50-75) % Lymph % (Auto) 6.4 L (25-40) % Twiggs % (Auto) 6.0 (3-14) % Eos % (Auto) 0.8 L (2-4) % Baso % (Auto) 0.2 (0-2) % Neut # (Auto) 9300 H (2376-4004) /uL Lymph # (Auto) 700 L (5562-8021) /uL Twiggs # (Auto) 600 (0-900) /uL Eos # (Auto) 100 (0-450) /uL Baso # (Auto) 0 (0-100) /uL Sodium 134 L (137-145) mmol/L Potassium 3.8 (3.4-5.1) mmol/L Chloride 101 (98-107) mmol/L Carbon Dioxide 30 (22-32) mmol/L BUN 10 (9-20) mg/dL Creatinine 0.64 L (0.66-1.25) mg/dL Estimated GFR > 60 (>60) mL/min BUN/Creatinine Ratio 15.6 (6-22) Glucose 152 H (70-100) mg/dL Lactate 1.5 (0.7-2.1) mmol/L Calcium 8.1 L (8.4-10.2) mg/dL Total Bilirubin 0.4 (0.2-1.3) mg/dL AST 28 (17-59) IU/L ALT 16 (<50) IU/L Alkaline Phosphatase 68 (38-126) U/L Total Protein 6.6 (6.3-8.2) g/dL Albumin 3.6 (3.5-5.0) g/dL Globulin 3.0 (1.7-4.1) g/dL Albumin/Globulin Ratio 1.2 (1.0-2.8) Lipase 49 (23-300) U/L Procalcitonin 0.26 (<0.5) ng/mL Chlamy pneumoniae PCR (Not Detect) Adenovirus (PCR) (Not Detect) B. pertussis DNA (PCR) (Not Detecte) B.parapertussis DNA PCR (Not Detecte) Coronavirus OC43 (PCR) (Not Detect) Coronavirus HKU1 (PCR) (Not Detect) Coronavirus 229E (PCR) (Not Detect) SARS-CoV-2 (PCR) (Not Detecte) Coronavirus NL63 (PCR) (Not Detect) Human Metapneumovir PCR (Not Detect) Influenza Type A (PCR) (Not Detect) Influenza Type B (PCR) (Not Detect) M. pneumoniae (PCR) (Not Detect) Parainfluenza 1 (PCR) (Not Detect) Parainfluenza 2 (PCR) (Not Detect) Parainfluenza 3 (PCR) (Not Detect) Parainfluenza 4 (PCR) (Not Detect) RSV (PCR) (Not Detect) Entero/Rhino (PCR) (Not Detect) 02/14/22 Range/Units 14:53 WBC (4.5-11.0) X10^3/uL RBC (4.5-5.9) X10^6/uL Hgb (13.5-17.5) g/dL Hct (41-53) % MCV (80-100) fL MCH (26-34) PG MCHC (30-36) % RDW (11.6-14.8) % Plt Count (150-400) X10^3/uL Neut % (Auto) (50-75) % Lymph % (Auto) (25-40) % Twiggs % (Auto) (3-14) % Eos % (Auto) (2-4) % Baso % (Auto) (0-2) % Neut # (Auto) (7588-4864) /uL Lymph # (Auto) (2034-9018) /uL Twiggs # (Auto) (0-900) /uL Eos # (Auto) (0-450) /uL Baso # (Auto) (0-100) /uL Sodium (137-145) mmol/L Potassium (3.4-5.1) mmol/L Chloride (98-107) mmol/L Carbon Dioxide (22-32) mmol/L BUN (9-20) mg/dL Creatinine (0.66-1.25) mg/dL Estimated GFR (>60) mL/min BUN/Creatinine Ratio (6-22) Glucose (70-100) mg/dL Lactate (0.7-2.1) mmol/L Calcium (8.4-10.2) mg/dL Total Bilirubin (0.2-1.3) mg/dL AST (17-59) IU/L ALT (<50) IU/L Alkaline Phosphatase (38-126) U/L Total Protein (6.3-8.2) g/dL Albumin (3.5-5.0) g/dL Globulin (1.7-4.1) g/dL Albumin/Globulin Ratio (1.0-2.8) Lipase (23-300) U/L Procalcitonin (<0.5) ng/mL Chlamy pneumoniae PCR Not detected (Not Detect) Adenovirus (PCR) Not detected (Not Detect) B. pertussis DNA (PCR) Not detected (Not Detecte) B.parapertussis DNA PCR Not detected (Not Detecte) Coronavirus OC43 (PCR) Not detected (Not Detect) Coronavirus HKU1 (PCR) Not detected (Not Detect) Coronavirus 229E (PCR) Not detected (Not Detect) SARS-CoV-2 (PCR) Not detected (Not Detecte) Coronavirus NL63 (PCR) Not detected (Not Detect) Human Metapneumovir PCR Not detected (Not Detect) Influenza Type A (PCR) Not detected (Not Detect) Influenza Type B (PCR) Not detected (Not Detect) M. pneumoniae (PCR) Not detected (Not Detect) Parainfluenza 1 (PCR) Not detected (Not Detect) Parainfluenza 2 (PCR) Not detected (Not Detect) Parainfluenza 3 (PCR) Not detected (Not Detect) Parainfluenza 4 (PCR) Not detected (Not Detect) RSV (PCR) Not detected (Not Detect) Entero/Rhino (PCR) Detected H (Not Detect) Urine Dip Bedside Urine Glucose Negative Bedside Urine Bilirubin - Negative Bedside Urine Ketone - Negative Urine Specific [place] 1.025 Bedside Urine Occult Blood - Negative Bedside Urine pH 6 Bedside Urine Protein - Negative Bedside Urine Urobilinogen - Negative Bedside Urine Nitrite - Negative Bedside Urine Leukocytes - Negative Esterase Imaging Data Chest x-ray: Radiologist's Impression: PROCEDURE:? XR CHEST 1V ? INDICATIONS:? suspected sepsis ? TECHNIQUE:? One view of the chest was acquired.? ? COMPARISON:? [facility], CR, XR CHEST 1V, 01/20/2022, 7:08. ? FINDINGS:? ? Surgical changes and devices:? None.? ? Lungs and pleura:? Lungs are clear.? No pleural effusions or pneumothorax.? ? Mediastinum:? Mediastinal contours appear normal.? Heart size is normal.? ? Bones and chest wall:? No suspicious bony lesions.? Overlying soft tissues appear unremarkable.? ? IMPRESSION:? No evidence acute pulmonary process. ? ? ? Dictated by: Brady Gauthier M.D. on 02/14/2022 at 15:25 ? ? Approved by: Brady Gauthier M.D. on 02/14/2022 at 15:31 ? [facility] Narrative Medical decision making narrative: Differential diagnosis to consider but not limited to pneumonia versus upper respiratory infection versus atelectasis. I discussed results of lab studies an d imaging with patient and informed him that he did test positive for rhino virus on his respiratory panel. Patient was administered normal saline, Solu- Medrol, magnesium, and DuoNeb breathing treatment in the emergency department and his symptoms significantly improved. Wheezing and rhonchi were absent after breathing treatment was administered and oxygen saturation stayed above 91% while ambulating in the emergency department. I discussed planned to send the patient home with a course of steroids to help improve his breathing. Patient expresses understanding and agrees to plan. He states that this time days comfortable being discharged home. Patient is stable for discharge at this ti il. Strict return precautions were discussed with the patient prior to discharge. Oxygen saturation stayed above 94% during final examination prior to discharge. <Jyothi Lopez MD - Last Filed: 02/21/22 07:23> Lab Data Labs: Lab Results 02/14/22 02/14/22 02/14/22 Range/Units 14:45 14:45 14:45 WBC 10.7 (4.5-11.0) X10^3/uL RBC 4.10 L (4.5-5.9) X10^6/uL Hgb 11.9 L (13.5-17.5) g/dL Hct 35.1 L (41-53) % MCV 85.5 (80-100) fL MCH 29.0 (26-34) PG MCHC 33.9 (30-36) % RDW 13.9 (11.6-14.8) % Plt Count 196 (150-400) X10^3/uL Neut % (Auto) 86.6 H (50-75) % Lymph % (Auto) 6.4 L (25-40) % Twiggs % (Auto) 6.0 (3-14) % Eos % (Auto) 0.8 L (2-4) % Baso % (Auto) 0.2 (0-2) % Neut # (Auto) 9300 H (8373-8921) /uL Lymph # (Auto) 700 L (1726-6848) /uL Twiggs # (Auto) 600 (0-900) /uL Eos # (Auto) 100 (0-450) /uL Baso # (Auto) 0 (0-100) /uL Sodium 134 L (137-145) mmol/L Potassium 3.8 (3.4-5.1) mmol/L Chloride 101 (98-107) mmol/L Carbon Dioxide 30 (22-32) mmol/L BUN 10 (9-20) mg/dL Creatinine 0.64 L (0.66-1.25) mg/dL Estimated GFR > 60 (>60) mL/min BUN/Creatinine Ratio 15.6 (6-22) Glucose 152 H (70-100) mg/dL Lactate 1.5 (0.7-2.1) mmol/L Calcium 8.1 L (8.4-10.2) mg/dL Total Bilirubin 0.4 (0.2-1.3) mg/dL AST 28 (17-59) IU/L ALT 16 (<50) IU/L Alkaline Phosphatase 68 (38-126) U/L Total Protein 6.6 (6.3-8.2) g/dL Albumin 3.6 (3.5-5.0) g/dL Globulin 3.0 (1.7-4.1) g/dL Albumin/Globulin Ratio 1.2 (1.0-2.8) Lipase 49 (23-300) U/L Procalcitonin 0.26 (<0.5) ng/mL Chlamy pneumoniae PCR (Not Detect) Adenovirus (PCR) (Not Detect) B. pertussis DNA (PCR) (Not Detecte) B.parapertussis DNA PCR (Not Detecte) Coronavirus OC43 (PCR) (Not Detect) Coronavirus HKU1 (PCR) (Not Detect) Coronavirus 229E (PCR) (Not Detect) SARS-CoV-2 (PCR) (Not Detecte) Coronavirus NL63 (PCR) (Not Detect) Human Metapneumovir PCR (Not Detect) Influenza Type A (PCR) (Not Detect) Influenza Type B (PCR) (Not Detect) M. pneumoniae (PCR) (Not Detect) Parainfluenza 1 (PCR) (Not Detect) Parainfluenza 2 (PCR) (Not Detect) Parainfluenza 3 (PCR) (Not Detect) Parainfluenza 4 (PCR) (Not Detect) RSV (PCR) (Not Detect) Entero/Rhino (PCR) (Not Detect) 02/14/22 Range/Units 14:53 WBC (4.5-11.0) X10^3/uL RBC (4.5-5.9) X10^6/uL Hgb (13.5-17.5) g/dL Hct (41-53) % MCV (80-100) fL MCH (26-34) PG MCHC (30-36) % RDW (11.6-14.8) % Plt Count (150-400) X10^3/uL Neut % (Auto) (50-75) % Lymph % (Auto) (25-40) % Twiggs % (Auto) (3-14) % Eos % (Auto) (2-4) % Baso % (Auto) (0-2) % Neut # (Auto) (8098-7301) /uL Lymph # (Auto) (3285-4925) /uL Twiggs # (Auto) (0-900) /uL Eos # (Auto) (0-450) /uL Baso # (Auto) (0-100) /uL Sodium (137-145) mmol/L Potassium (3.4-5.1) mmol/L Chloride (98-107) mmol/L Carbon Dioxide (22-32) mmol/L BUN (9-20) mg/dL Creatinine (0.66-1.25) mg/dL Estimated GFR (>60) mL/min BUN/Creatinine Ratio (6-22) Glucose (70-100) mg/dL Lactate (0.7-2.1) mmol/L Calcium (8.4-10.2) mg/dL Total Bilirubin (0.2-1.3) mg/dL AST (17-59) IU/L ALT (<50) IU/L Alkaline Phosphatase (38-126) U/L Total Protein (6.3-8.2) g/dL Albumin (3.5-5.0) g/dL Globulin (1.7-4.1) g/dL Albumin/Globulin Ratio (1.0-2.8) Lipase (23-300) U/L Procalcitonin (<0.5) ng/mL Chlamy pneumoniae PCR Not detected (Not Detect) Adenovirus (PCR) Not detected (Not Detect) B. pertussis DNA (PCR) Not detected (Not Detecte) B.parapertussis DNA PCR Not detected (Not Detecte) Coronavirus OC43 (PCR) Not detected (Not Detect) Coronavirus HKU1 (PCR) Not detected (Not Detect) Coronavirus 229E (PCR) Not detected (Not Detect) SARS-CoV-2 (PCR) Not detected (Not Detecte) Coronavirus NL63 (PCR) Not detected (Not Detect) Human Metapneumovir PCR Not detected (Not Detect) Influenza Type A (PCR) Not detected (Not Detect) Influenza Type B (PCR) Not detected (Not Detect) M. pneumoniae (PCR) Not detected (Not Detect) Parainfluenza 1 (PCR) Not detected (Not Detect) Parainfluenza 2 (PCR) Not detected (Not Detect) Parainfluenza 3 (PCR) Not detected (Not Detect) Parainfluenza 4 (PCR) Not detected (Not Detect) RSV (PCR) Not detected (Not Detect) Entero/Rhino (PCR) Detected H (Not Detect) Urine Dip Bedside Urine Glucose Negative Bedside Urine Bilirubin - Negative Bedside Urine Ketone - Negative Urine Specific [place] 1.025 Bedside Urine Occult Blood - Negative Bedside Urine pH 6 Bedside Urine Protein - Negative Bedside Urine Urobilinogen - Negative Bedside Urine Nitrite - Negative Bedside Urine Leukocytes - Negative Esterase Discharge Plan Departure Patient Disposition: Home Clinical Impression: Upper respiratory infection, viral, Rhinovirus infection, Fever Instructions: DI for Viral Upper Respiratory Infection -- Adult Activity Restrictions/Additional Instructions: *You have been diagnosed with viral upper respiratory infection, rhinovirus infection, fever *What to do: *Please continue to take your regular medications as directed. [X] New medication prescriptions sent to your pharmacy: [facility] - Prednisone [ ] New medication written as a paper prescription [ ] No new medications given You were evaluated in the emergency department today for fever and cough. Respiratory panel obtained in the emergency department today did result positive for rhino virus infection. The chest x-ray obtained in the emergency department did not show signs of acute abnormalities such as pneumonia. I am glad we were able to help alleviate your symptoms. I have prescribed you a short course of steroids to your preferred pharmacy to help improve your breathing over the next few days. I recommend following up with the primary care provider within the next 2-3 days for further evaluation and management. Please do not hesitate to return to the emergency department if you experience worsening fever, increased difficulty breathing, or any other concerning symptoms. *Please follow up with your primary care provider in 2-3 days, call for an appointment. Let them know you were seen in the Emergency Department and that we ask that you be seen in follow up. We will electronically transmit a record of today's note if your PCP is in our system *If you do not have a primary care provider please contact the [facility] Resource line at [phone]. They will ask some questions about your medical history and help get you set up with a doctor in the community. *Return to Emergency Department if you should have any new, worsening or concerning symptoms, such as fever greater than 101 F, shaking chills, worsening pain, persistent vomiting or other bothersome symptoms. Prescriptions: New prednisone 20 mg tablet 20 mg PO DAILY Qty: 5 0RF No Action buspirone 15 mg tablet 15 mg PO BID Qty: 180 0RF paroxetine HCl 40 mg tablet See Rx Instructions .ROUTE .COMPLEX Qty: 90 0RF Dose Instruction: TAKE 1 TABLET BY MOUTH DAILY Rx Instructions: TAKE 1 TABLET BY MOUTH DAILY tamsulosin 0.4 mg capsule 0.4 mg PO BEDTIME Qty: 30 2RF albuterol sulfate 90 mcg/actuation HFA aerosol inhaler 2 puff inhalation Q4-6H PRN (Reason: shortness of breath or wheezing) Qty: 8.5 0RF prednisone 50 mg tablet 50 mg PO DAILY Qty: 5 0RF epinephrine [EpiPen] 0.3 mg/0.3 mL auto-injector 0.3 mg IM Q5-15M PRN (Reason: anaphylaxis) Qty: 2 0RF Rx Instructions: do not exceed 3 doses per episode naproxen 500 mg tablet 500 mg PO BID [id number] Referrals: David Hartman DO [Primary Care Provider] - <Jyothi Lopez MD - Last Filed: 02/21/22 07:23> [facility] ED Attending Justinature Attestation: I was immediately available in the department for consultation throughout this patient's visit. I agree with documentation as above. Jyothi Lopez MD
[2022-02-14 15:27] LABS: Procalcitonin 0.26 ng/mL (<0.5)
[2022-02-14 15:57] LABS: Adenovirus Not Detected (Not Detect); Coronavirus 229E Not Detected (Not Detect); Coronavirus HKU1 Not Detected (Not Detect); Coronavirus NL 63 Not Detected (Not Detect); Coronavirus OC43 Not Detected (Not Detect); Human Metapneumovirus Not Detected (Not Detect); Human Rhinovirus/Enterovirus Detected (Not Detect); SARS- CoV-2 Not Detected (Not Detecte)
[2022-02-14 15:58] LABS: B. parapertussis Not Detected (Not Detecte); Bordetella pertussis Not Detected (Not Detecte); Chlamydophila pneumoniae Not Detected (Not Detect); Influenza A Not Detected (Not Detect); Influenza B Not Detected (Not Detect); Mycoplasma pneumoniae Not Detected (Not Detect); Parainfluenza Virus 1 Not Detected (Not Detect); Parainfluenza Virus 2 Not Detected (Not Detect); Parainfluenza Virus 3 Not Detected (Not Detect); Parainfluenza Virus 4 Not Detected (Not Detect); Respiratory Syncytial Virus Not Detected (Not Detect)
--- NOTE | 2022-02-14 16:12 | PC.NURSE ---
Had covid in October, states I have long covid. I have never fully recovered. Reports recent new productive cough, fevers and increased fatigue. Temp at home 103. Took tylenol between 11-12 today. Temp 101.7 upon assessment.
[2022-02-14] MEDS: MAGNESIUM SULFATE 2 GM/50 ML PIGGYBACK IV (16:19)
[2022-02-14] MEDS: methylPREDNISolone 125 MG/2 ML VIAL IV (16:19)
[2022-02-14] MEDS: ALBUTEROL/IPRATROPIUM 3 ML AMPUL INH (16:20)
--- NOTE | 2022-02-14 17:02 | PC.NURSE ---
Pt did well with ambulation no dyspnea with slight exertion. Baseline SPO2 93% JACQUELINE Farr notified
== END 2022-02-14 17:47 | disposition home or self-care (01) ==
PROVIDERS: Emergency Medicine; Emergency Provider Physician Assistant; Family Provider Internal Medicine; PCP Family Medicine
DX: J06.9 Acute upper respiratory infection, unspecified (principal); B97.89 Other viral agents as the cause of diseases classified elsewhere
CPT/HCPCS: 36415; 71045; 80053; 81003; 83605; 83690; 84145; 85025; 87040; 87633; 93005; 94640; 96361; 96365; 96375; 99284; 99285; J2930; J3475

== ENCOUNTER 2022-10-14 10:02 | Emergency (ER) | payer OTHER, SELFPAY ==
[2022-10-14] VITALS (7 sets, daily range): BP systolic 140–150; BP diastolic 93–99; PULSE 77–91; RESP 11–20; TEMP 36.2; O2SAT 96–99; BMI 29.7
--- NOTE | 2022-10-14 10:25 | PC.NURSE ---
Pt feeling SOB with any exertion,chest pain worse on inspiration.
[2022-10-14 10:28] LABS: Add Manual Diff / Slide Review NO; Basophils Absolute Auto 0 /uL (0-100); Basophils Percent Auto 0.4 % (0-2); Eosinophils Absolute Auto 0 /uL (0-450); Eosinophils Percent Auto 0.5 % (2-4); Hemoglobin 13.8 g/dL (13.5-17.5); Lymphocytes Absolute Auto 1300 /uL (1100-4500); Lymphocytes Percent Auto 14.2 % (25-40); Mean Corpuscular HGB Conc 33.7 % (30-36); Mean Corpuscular Hemoglobin 28.5 PG (26-34); Mean Corpuscular Volume 84.7 fL (80-100); Monocytes Absolute Auto 600 /uL (0-900); Monocytes Percent Auto 6.4 % (3-14); Neutrophils Absolute Auto 7300 /uL (1500-7000); Neutrophils Percent Auto 78.5 % (50-75); Platelet Count 264 X10^3/uL (150-400); Red Blood Cell Count 4.84 X10^6/uL (4.5-5.9); Red Cell Distribution Width 15.6 % (11.6-14.8); White Blood Cell Count 9.4 X10^3/uL (4.5-11.0)
[2022-10-14] MEDS: ASPIRIN 81 MG CHEW TAB 324 MG PO (10:34)
[2022-10-14 10:40] LABS: INR 1.1 (0.9-1.3); Prothrombin Time 12.6 SECONDS (10.1-12.7)
[2022-10-14 10:42] LABS: PTT Partial Thromboplastin Tim 29 SECONDS (26-36)
[2022-10-14 10:46] LABS: Alanine Aminotransferase 25 IU/L (<50); Albumin 4.4 g/dL (3.5-5.0); Albumin Globulin Ratio 1.3 (1.0-2.8); Alkaline Phosphatase 84 U/L (38-126); Aspartate Aminotransferase 37 IU/L (17-59); BUN Creatinine Ratio 21.3 (6-22); Bilirubin Total 0.8 mg/dL (0.2-1.3); Blood Urea Nitrogen 16 mg/dL (9-20); Calcium 9.8 mg/dL (8.4-10.2); Carbon Dioxide 21 mmol/L (22-32); Chloride 102 mmol/L (98-107); Creatine Kinase 69 U/L (55-170); Estimated Glomerular Filt Rate > 60 mL/min (>60); Globulin 3.3 g/dL (1.7-4.1); Glucose 148 mg/dL (70-100); HEMOLYSIS < 15 (0-50); Lipase 75 U/L (23-300); Magnesium 1.9 mg/dL (1.6-2.3); Potassium 3.9 mmol/L (3.4-5.1); Sodium 136 mmol/L (137-145); Total Protein 7.7 g/dL (6.3-8.2)
[2022-10-14 10:55] LABS: NT-proBNP (BNP-Adult 18+) 34 pg/mL (<125)
[2022-10-14 10:57] LABS: D Dimer 1011 ng/ml (<500)
[2022-10-14 10:58] LABS: Troponin I < 0.012 ng/mL (0.01-0.034)
--- NOTE | 2022-10-14 11:01 | ED_ITS ---
HPI - Chest Pain General Chief Complaint: Chest Pain Stated Complaint: chest pain /dizzy/SOB/ fatigue/blurry vision t-7 Time Seen by Provider: 10/14/22 10:14 Source: patient and family Mode of arrival: Ambulatory Limitations: no limitations History of Present Illness HPI narrative: 52-year-old male nonsmoker with history of elevated PSA, hyperglycemia, anxiety, hyperlipidemia presents with a chief complaint of chest pain, worse with deep inspiration for the past 4 days. He has had no nausea vomiting diarrhea or fever. At rest his pain is 4/10 however it and creases to a least a 6/10 with deep breath. He feels somewhat dizzy. He denies any black, dark or tarry stools. He has been fatigued and felt anxious over the past 4 or 5 days and states he slept upwards of 18 hours per day over the weekend. He states it is pain is underneath the ribs bilaterally ins worse with motion and with deep breath. He denies any radiation of the pain nor exertional symptoms. Related Data Previous Rx's Medication Instructions Recorded epinephrine 0.3 mg/0.3 mL 0.3 mg (0.3 mL) IM Q5-15M PRN 07/15/21 injection, auto-injector (EpiPen) anaphylaxis #2 ea buspirone 15 mg tablet 15 mg PO BID #180 tabs 03/09/22 paroxetine HCl 40 mg tablet See Rx Instructions .Route 08/28/22 .COMPLEX #90 tabs alprazolam 0.5 mg tablet (Xanax) 0.5 mg PO TID PRN anxiety #20 tabs 10/14/22 pantoprazole 40 mg tablet,delayed 40 mg PO DAILY #30 tabs 10/14/22 release (Protonix) Allergies Allergy/AdvReac Type Severity Reaction Status Date / Time No Known Drug Allergies Allergy Verified 10/14/22 10:21 Review of Systems Review of Systems Narrative: GENERAL: Denies chills, fatigue, malaise, fever, sweats. HEENT: Denies sinus pain, ear pain, sore throat, difficulty swallowing, dizziness. RESPIRATORY: See HPI CARDIOVASCULAR: See HPI GASTROINTESTINAL: Denies nausea, vomiting, abdominal pain, diarrhea, constipation, melena. : Denies dysuria, frequency, incontinence, hematuria, urinary retention. MUSCULOSKELETAL: denies weakness, joint pain, or bony pain SKIN: Denies rash, skin lesions, or other NEUROLOGIC: Denies weakness, headache, numbness, change in speech, confusion, seizures, incoordination. PSYCHIATRIC: No concerning psychosocial issues. 12 point review of systems is negative except for those stated above Patient History Medical History Anxiety (~2001) Anxiety Carpal tunnel syndrome (~2012) Chicken pox (~1974) Chronic back pain (~2012) Chronic migraine Depression Elevated PSA, between 10 and less than 20 ng/ml Family history of prostate cancer Generalized anxiety disorder Hyperglycemia Knee effusion, right Migraines Mixed hyperlipidemia (03/28/13) Right ankle injury Right ankle sprain Strain of right knee Strain of tendon of left rotator cuff Surgical History Anesthesia History of carpal tunnel repair (~2012) History of mandibular surgery (~1989) History of nasal surgery (~2001) History of surgery (~2013) Status post knee surgery (~2012) Family History Father Prostate cancer Social History Smoking Status: Never smoker Smoking Status: Never smoker alcohol intake frequency: 0-2 drinks per day Substance Use Type: does not use Exam Narrative Exam Narrative: GENERAL: [52] year old patient appears stated age. Well-developed patient, in mild distress. HEAD: Atraumatic. Normocephalic. EYES: Pupils equal round and reactive. Extraocular motions intact. No scleral icterus. No injection or drainage. ENT: Nose without bleeding, purulent drainage. Throat without erythema, tonsillar hypertrophy or exudate. Airway patent. NECK: Trachea midline. Non tender CARDIOVASCULAR: Regular rate and rhythm without murmurs, gallops, or rubs. RESPIRATORY: Clear to auscultation. Breath sounds equal bilaterally. No wheezes, rales, or rhonchi. GASTROINTESTINAL: Abdomen soft, non-tender, nondistended. EXTREMITIES: No edema or joint tenderness. BACK: Nontender without deformity or crepitance. No flank tenderness. NEURO: AOx3. SKIN: No rash or erythema of visible areas Initial Vital Signs Initial Vital Signs: Vital Signs Temperature 97.1 F L 10/14/22 10:05 Pulse Rate 89 10/14/22 10:05 Respiratory Rate 18 10/14/22 10:05 Blood Pressure 150/93 H 10/14/22 10:05 Pulse Oximetry 99 10/14/22 10:05 Oxygen Delivery Method 10/14/22 10:05 Scores HEART Score Heart Score history: Slightly Suspicious Heart Score EKG: Normal Heart Score Age: 45-64 years old Heart Score risk factors: 1-2 risk factors Heart Score troponin: < or = to normal limit Heart Score Total: 2 Course Orders Ordered: ED Orders 10/14/22 10:13 EKG-12 Lead Stat 10/14/22 10:16 Complete Blood Count AUTO DIFF Stat Comprehensive Metabolic Panel Stat Covid-19 + FLU A/B + RSV - PCR Stat D Dimer Stat Lipase Stat Magnesium Stat NT-proBNP (BNP-Adult 18+) Stat Partial Thromboplastin Time Stat Prothrombin Time INR Stat Troponin & CK Cardiac Panel Stat 10/14/22 11:21 CT angio chest PE protocol Stat Discontinued Medications Aspirin (Aspirin 81 Mg Chew Tab) 324 mg PO NOW ONE Stop: 10/14/22 10:14 Last Admin: 10/14/22 10:34 Dose: 324 mg Documented By: GLORIA Vital Signs Vital signs: Vital Signs - 8 hr 10/14/22 11:38 10/14/22 12:00 10/14/22 12:47 Pulse Rate 77 78 81 Respiratory Rate 15 20 Blood Pressure 140/99 H Pulse Oximetry 98 96 98 Oxygen Delivery Method Room Air MDM - Chest Pain Lab Data Result diagrams: 10/14/22 10:16 10/14/22 10:16 Labs: Lab Results 10/14/22 10/14/22 10/14/22 Range/Units 10:16 10:16 10:16 WBC 9.4 (4.5-11.0) X10^3/uL RBC 4.84 (4.5-5.9) X10^6/uL Hgb 13.8 (13.5-17.5) g/dL Hct 41.0 (41-53) % MCV 84.7 (80-100) fL MCH 28.5 (26-34) PG MCHC 33.7 (30-36) % RDW 15.6 H (11.6-14.8) % Plt Count 264 (150-400) X10^3/uL Neut % (Auto) 78.5 H (50-75) % Lymph % (Auto) 14.2 L (25-40) % [place] % (Auto) 6.4 (3-14) % Eos % (Auto) 0.5 L (2-4) % Baso % (Auto) 0.4 (0-2) % Neut # (Auto) 7300 H (1831-3634) /uL Lymph # (Auto) 1300 (3562-5329) /uL [place] # (Auto) 600 (0-900) /uL Eos # (Auto) 0 (0-450) /uL Baso # (Auto) 0 (0-100) /uL PT 12.6 (10.1-12.7) SECONDS INR 1.1 (0.9-1.3) APTT 29 (26-36) SECONDS D-Dimer (<500) ng/ml Sodium 136 L (137-145) mmol/L Potassium 3.9 (3.4-5.1) mmol/L Chloride 102 (98-107) mmol/L Carbon Dioxide 21 L (22-32) mmol/L BUN 16 (9-20) mg/dL Creatinine 0.75 (0.66-1.25) mg/dL Estimated GFR > 60 (>60) mL/min BUN/Creatinine Ratio 21.3 (6-22) Glucose 148 H (70-100) mg/dL Calcium 9.8 (8.4-10.2) mg/dL Magnesium 1.9 (1.6-2.3) mg/dL Total Bilirubin 0.8 (0.2-1.3) mg/dL AST 37 (17-59) IU/L ALT 25 (<50) IU/L Alkaline Phosphatase 84 (38-126) U/L Total Creatine Kinase 69 (55-170) U/L CK-MB (CK-2) TNP CK-MB (CK-2) Rel Index TNP Troponin I < 0.012 (0.01-0.034) ng/mL NT-Pro-B Natriuret Pep (<125) pg/mL Total Protein 7.7 (6.3-8.2) g/dL Albumin 4.4 (3.5-5.0) g/dL Globulin 3.3 (1.7-4.1) g/dL Albumin/Globulin Ratio 1.3 (1.0-2.8) Lipase 75 (23-300) U/L SARS-CoV-2 (PCR) (Negative) Influenza A (RT-PCR) (NEGATIVE) Influenza B (RT-PCR) (NEGATIVE) RSV (PCR) (Negative) 10/14/22 10/14/22 10/14/22 Range/Units 10:16 10:16 10:16 WBC (4.5-11.0) X10^3/uL RBC (4.5-5.9) X10^6/uL Hgb (13.5-17.5) g/dL Hct (41-53) % MCV (80-100) fL MCH (26-34) PG MCHC (30-36) % RDW (11.6-14.8) % Plt Count (150-400) X10^3/uL Neut % (Auto) (50-75) % Lymph % (Auto) (25-40) % [place] % (Auto) (3-14) % Eos % (Auto) (2-4) % Baso % (Auto) (0-2) % Neut # (Auto) (9199-3748) /uL Lymph # (Auto) (6552-6803) /uL [place] # (Auto) (0-900) /uL Eos # (Auto) (0-450) /uL Baso # (Auto) (0-100) /uL PT (10.1-12.7) SECONDS INR (0.9-1.3) APTT (26-36) SECONDS D-Dimer 1011 H (<500) ng/ml Sodium (137-145) mmol/L Potassium (3.4-5.1) mmol/L Chloride (98-107) mmol/L Carbon Dioxide (22-32) mmol/L BUN (9-20) mg/dL Creatinine (0.66-1.25) mg/dL Estimated GFR (>60) mL/min BUN/Creatinine Ratio (6-22) Glucose (70-100) mg/dL Calcium (8.4-10.2) mg/dL Magnesium (1.6-2.3) mg/dL Total Bilirubin (0.2-1.3) mg/dL AST (17-59) IU/L ALT (<50) IU/L Alkaline Phosphatase (38-126) U/L Total Creatine Kinase (55-170) U/L CK-MB (CK-2) CK-MB (CK-2) Rel Index Troponin I (0.01-0.034) ng/mL NT-Pro-B Natriuret Pep 34 (<125) pg/mL Total Protein (6.3-8.2) g/dL Albumin (3.5-5.0) g/dL Globulin (1.7-4.1) g/dL Albumin/Globulin Ratio (1.0-2.8) Lipase (23-300) U/L SARS-CoV-2 (PCR) Negative (Negative) Influenza A (RT-PCR) Flu a negative (NEGATIVE) Influenza B (RT-PCR) Flu b negative (NEGATIVE) RSV (PCR) Negative (Negative) Imaging Data CT scan - chest: Radiologist's Impression: Close Chest CTA (Signed) Brady Gauthier - 10/14/22 Chest X-Ray (Signed) Brady Gauthier - 02/14/22 EKG Rpt. 02/14/22 Chest X-Ray (Signed) Olivia Pires - 01/20/22 Foot X-Ray (Signed) Xander Silveira - 05/22/21 Ankle X-Ray (Signed) Xander Silveira - 05/22/21 Knee MRI (Signed) Jareth Camargo - 01/16/21 Knee X-Ray (Signed) Loco Vasquez - 12/20/20 DI Result CC 08/20/20 Abdomen/Pelvis CT (Signed) Loco Vasquez - 07/19/20 Finger X-Ray (Signed) Olivia Pires - 12/10/19 Toe X-Ray (Signed) Geo Cruz - 03/10/19 Toe X-Ray (Signed) Geo Cruz - 03/10/[address] [place] [id number] Scan Report Signed Patient: Isma Coreas MR#: [id number] : 1970 Acct:[id number] Age/Sex: 52 / M Date of Service: 10/14/22 Loc: ED Accession Number: [id number] ?? Procedure: CT angio chest PE protocol Ordering Provider: Pascual Perez D.O. PROCEDURE:? CT ANGIO CHEST PE PROTOCOL ? INDICATIONS:? chest pain, SOB, critical Dimer ? TECHNIQUE:? After the administration of intravenous contrast, 2 mm thick sections acquired from the pulmonary apices to the posterior costophrenic angles.? 3-dimensional maximum intensity projection (MIP) coronal and sagittal reformats were then acquired through the thorax.? For radiation dose reduction, the following was used:? automated exposure control, adjustment of mA and/or kV according to patient size.? ? COMPARISON:? None. ? FINDINGS:? Image quality:? Excellent.? ? Pulmonary arteries:? Pulmonary arteries are normal in size, and demonstrate no intraluminal filling defects to suggest central pulmonary embolism.? ? Lungs and pleura:? Lungs are clear.? No pleural effusions or pneumothorax.? Central and peripheral airways are patent.? ? Mediastinum:? Heart size is normal, without pericardial effusion.? No mediastinal or hilar adenopathy.? Thoracic aorta is normal in caliber and enhancement.? There is a small hiatal hernia.? The distal esophageal has mild circumferential wall thickening.? The proximal esophagus is dilated. ? Bones and chest wall:? No suspicious bony lesions.? Ribs and thoracic spine appear intact throughout.? Thyroid gland is unremarkable..? No axillary or supraclavicular adenopathy.? ? ? Abdomen:? Visualized upper abdominal solid organs appear normal in the early arterial phase of enhancement.? ? IMPRESSION:? ? 1. No evidence acute pulmonary emboli. ? 2. No evidence of acute pulmonary process. ? 3. Small hiatal hernia with mild diffuse thickening of the distal esophagus and dilatation of the proximal esophagus. ? Comment:? Consider nonemergent barium swallow or upper endoscopy to evaluate the distal esophagus.? ? ? Dictated by: Brady Gauthier M.D. on 10/14/2022 at 12:15 ? ? Approved by: Brady Gauthier M.D. on 10/14/2022 at 12:17 ? MDM Narrative Medical decision making narrative: 52-year-old male nonsmoker with history of elevated PSA, hyperglycemia, anxiety, hyperlipidemia presents with a chief complaint of chest pain, worse with deep inspiration for the past 4 days. Multiple etiologies for patient's symptoms considered including: [Cardiac ischemia, pericarditis, pulmonary embolism, gallbladder disease, pancreatitis, esophagitis Cardiac ischemia considered but Patient reports no radiation, no diaphoresis, no provocation with exertion, and no vomiting. Troponin is negative and heart score 2 Pulmonary embolism considered given pleuritic nature of discomfort and elevated D-dimer. CT angiogram shows no PE or pneumonia Patient's symptoms improved over duration of stay with above-stated therapies. Findings and discharge diagnosis discussed with patient/family followed by ve rbalization of understanding Return precautions discussed with patient/family whom verbalize understanding. Discharge Plan Departure Patient Disposition: Home Clinical Impression: Atypical chest pain Instructions: DI for Atypical Chest Pain Activity Restrictions/Additional Instructions: *You have been diagnosed with [atypical chest pain. As we discussed there is no evidence of heart attack, blood clot or other severe diagnosis requiring specific intervention] *What to do: *Please continue to take your regular medications as directed. [x ] New medication prescriptions sent to your pharmacy: [ [facility]] [ ] New medication written as a paper prescription [ ] No new medications given *Please follow up with your primary care provider in 2-3 days, call for an appointment. Let them know you were seen in the Emergency Department and that we ask that you be seen in follow up. We will electronically transmit a record of today's note if your PCP is in our system *Return to Emergency Department if you should have any new, worsening or concerning symptoms, such as [fever greater than 101 F, shaking chills, worsening pain, persistent vomiting or other bothersome symptoms] Prescriptions: New pantoprazole [Protonix] 40 mg tablet,delayed release (DR/EC) 40 mg PO DAILY Qty: 30 0RF alprazolam [Xanax] 0.5 mg tablet 0.5 mg PO TID PRN (Reason: anxiety) Qty: 20 0RF No Action buspirone 15 mg tablet 15 mg PO BID Qty: 180 1RF paroxetine HCl 40 mg tablet See Rx Instructions .ROUTE .COMPLEX Qty: 90 1RF Dose Instruction: TAKE 1 TABLET BY MOUTH DAILY Rx Instructions: TAKE 1 TABLET BY MOUTH DAILY epinephrine [EpiPen] 0.3 mg/0.3 mL auto-injector 0.3 mg IM Q5-15M PRN (Reason: anaphylaxis) Qty: 2 0RF Rx Instructions: do not exceed 3 doses per episode Referrals: David Hartman, [Primary Care Provider] - Visit Report Forms: Patient Portal/API
[2022-10-14 11:07] LABS: Influenza A - CEPHEID Flu A NEGATIVE (NEGATIVE); Influenza B - CEPHEID Flu B NEGATIVE (NEGATIVE); Respiratory Syncytial Virus Negative (Negative)
[2022-10-14 11:08] LABS: COVID-19 CEPHEID 4-PLEX PCR Negative (Negative)
--- NOTE | 2022-10-14 11:21 | DI.CT.S_ITS ---
PROCEDURE: CT ANGIO CHEST PE PROTOCOL INDICATIONS: chest pain, SOB, critical Dimer TECHNIQUE: After the administration of intravenous contrast, 2 mm thick sections acquired from the pulmonary apices to the posterior costophrenic angles. 3-dimensional maximum intensity projection (MIP) coronal and sagittal reformats were then acquired through the thorax. For radiation dose reduction, the following was used: automated exposure control, adjustment of mA and/or kV according to patient size. COMPARISON: None. FINDINGS: Image quality: Excellent. Pulmonary arteries: Pulmonary arteries are normal in size, and demonstrate no intraluminal filling defects to suggest central pulmonary embolism. Lungs and pleura: Lungs are clear. No pleural effusions or pneumothorax. Central and peripheral airways are patent. Mediastinum: Heart size is normal, without pericardial effusion. No mediastinal or hilar adenopathy. Thoracic aorta is normal in caliber and enhancement. There is a small hiatal hernia. The distal esophageal has mild circumferential wall thickening. The proximal esophagus is dilated. Bones and chest wall: No suspicious bony lesions. Ribs and thoracic spine appear intact throughout. Thyroid gland is unremarkable.. No axillary or supraclavicular adenopathy. Abdomen: Visualized upper abdominal solid organs appear normal in the early arterial phase of enhancement. IMPRESSION: 1. No evidence acute pulmonary emboli. 2. No evidence of acute pulmonary process. 3. Small hiatal hernia with mild diffuse thickening of the distal esophagus and dilatation of the proximal esophagus. Comment: Consider nonemergent barium swallow or upper endoscopy to evaluate the distal esophagus. Dictated by: Brady Gauthier M.D. on 10/14/2022 at 12:15 Approved by: Brady Gauthier M.D. on 10/14/2022 at 12:17
== END 2022-10-14 12:48 | disposition home or self-care (01) ==
PROVIDERS: Emergency Provider Emergency Medicine; Family Provider Internal Medicine; PCP Family Medicine
DX: R07.89 Other chest pain (principal); R79.89 Other specified abnormal findings of blood chemistry; Z20.822 Contact with and (suspected) exposure to COVID-19; Z79.899 Other long term (current) drug therapy
CPT/HCPCS: 0241U; 36415; 71275; 80053; 82550; 83690; 83735; 83880; 84484; 85025; 85379; 85610; 85730; 93005; 93010; 99284; Q9967

== ENCOUNTER → 2023-01-18 10:00 | Outpatient (CLI) | payer OTHER, SELFPAY ==
[2023-01-18 11:18] LABS: Add Manual Diff / Slide Review NO; Basophils Absolute Auto 0 /uL (0-100); Basophils Percent Auto 0.6 % (0-2); Eosinophils Absolute Auto 200 /uL (0-450); Eosinophils Percent Auto 2.2 % (2-4); Hematocrit 40.2 % (41-53); Hemoglobin 13.3 g/dL (13.5-17.5); Lymphocytes Absolute Auto 2000 /uL (1100-4500); Lymphocytes Percent Auto 28.7 % (25-40); Mean Corpuscular Hemoglobin 27.7 PG (26-34); Mean Corpuscular Volume 84.1 fL (80-100); Monocytes Absolute Auto 500 /uL (0-900); Monocytes Percent Auto 7.6 % (3-14); Neutrophils Absolute Auto 4300 /uL (1500-7000); Neutrophils Percent Auto 60.9 % (50-75); Platelet Count 248 X10^3/uL (150-400); Red Blood Cell Count 4.78 X10^6/uL (4.5-5.9); Red Cell Distribution Width 15.2 % (11.6-14.8)
[2023-01-18 11:26] LABS: Hemoglobin A1C% w Est Avg Glu 6.1 % (4.0-6.0)
[2023-01-18 11:38] LABS: Alanine Aminotransferase 22 IU/L (<50); Albumin 4.1 g/dL (3.5-5.0); Albumin Globulin Ratio 1.4 (1.0-2.8); Alkaline Phosphatase 90 U/L (38-126); Aspartate Aminotransferase 28 IU/L (17-59); BUN Creatinine Ratio 21.7 (6-22); Bilirubin Total 0.9 mg/dL (0.2-1.3); Blood Urea Nitrogen 15 mg/dL (9-20); Calcium 8.9 mg/dL (8.4-10.2); Carbon Dioxide 22 mmol/L (22-32); Chloride 106 mmol/L (98-107); Cholesterol 219 mg/dL (140-199); Estimated Glomerular Filt Rate > 60 mL/min (>60); Globulin 2.9 g/dL (1.7-4.1); Glucose 119 mg/dL (70-100); HDL Cholesterol 50 mg/dL (40-60); HEMOLYSIS < 15 (0-50); LDL Cholesterol Calculated 128 mg/dL (<100); Sodium 140 mmol/L (137-145); Triglycerides 206 mg/dL (35-150)
[2023-01-18 12:09] LABS: Prostate Specific Antigen 28.4 ng/mL (0.10-4.00)
== END ==
PROVIDERS: Family Provider Internal Medicine; PCP Family Medicine; Referring Provider Family Medicine; Visit Provider Family Medicine
DX: E78.2 Mixed hyperlipidemia (principal); R73.9 Hyperglycemia, unspecified; R97.20 Elevated prostate specific antigen [PSA]; Z13.1 Encounter for screening for diabetes mellitus; Z13.9 Encounter for screening, unspecified
CPT/HCPCS: 36415; 80053; 80061; 83036; 84153; 85025

== ENCOUNTER → 2023-02-02 09:24 | Outpatient (CLI) | payer OTHER, SELFPAY ==
--- NOTE | 2023-02-02 09:26 | DI.CT.S_ITS ---
PROCEDURE: CT ABDOMEN PELVIS W CON INDICATIONS: Increasing PSA concern for prostate cancer TECHNIQUE: After the administration of oral and IV contrast, axial sections were acquired from the lung bases to the pubic symphysis. Coronal and sagittal reformats were performed. For radiation dose reduction, the following was used: automated exposure control, adjustment of mA and/or kV according to patient size. COMPARISON: [facility], CT, CT ABDOMEN PELVIS W CON, 07/19/2020, 19:48. FINDINGS: Image quality: Excellent. Lung bases: No pleural effusion. No central pulmonary embolism. Heart: No significant findings. ABDOMEN: Liver: No focal lesion. Gallbladder: Unremarkable. Biliary ducts: Unremarkable. Pancreas: Unremarkable. Spleen: Unremarkable. Adrenal Glands: No nodule. Kidneys and Ureters: No hydronephrosis. Stomach and Bowel: Stomach, small bowel loops, and colon are unremarkable. Diverticulosis. Normal appendix. Peritoneum: No abnormal intraperitoneal fluid. No free air. Ventral Wall: No hernia. Abdominal Nodes: No retroperitoneal or mesenteric adenopathy by size criteria. Vessels: Aorta and inferior vena cava are normal in size. PELVIS: Pelvic Organs: Vasectomy clips. Prominent prostate gland. Bladder: Unremarkable. Pelvic Nodes: No enlarged lymph nodes. Miscellaneous: Fat containing inguinal hernias. Bones: No suspicious lesion demonstrated. A few tiny bone islands are unchanged compared to 2019. IMPRESSION: No metastatic disease identified. No mass or adenopathy. No suspicious osseous lesion seen. Dictated by: Geo Bowen M.D. on 02/02/2023 at 12:46 Approved by: Geo Bowen M.D. on 02/02/2023 at 12:55
--- NOTE | 2023-02-02 09:26 | DI.CT.S_ITS ---
PROCEDURE: CT FACIAL BONES WO CON INDICATIONS: Assess integrity of facial fracture repair, poss failure TECHNIQUE: Noncontrast 2.5 mm thick axial images acquired from the mandible through the frontal sinuses, with coronal and sagittal reformatting. For radiation dose reduction, the following was used: automated exposure control, adjustment of mA and/or kV according to patient size. COMPARISON: No prior CTs through the area are available for review at the time of this dictation. FINDINGS: Image quality: Excellent. Bones and teeth: Postoperative change of the anterior maxillary sinuses can be seen, with plate and screw fixation. No findings of hardware failure or hardware loosening are seen. No recent fracture of the anterior govea of the maxillary sinuses can be seen. Chronic nasal bone fractures can be seen, with mild leftward deviation. No nasal septal fracture is seen. There is mild chronic rightward nasal septal deviation. A perforated nasal septum is seen, as on series 5 image 41. Along the floor of the right maxillary sinus, there is a likely dentigerous cyst seen, as on series 5, image 37. A mild septation can be seen along the floor of the left maxillary sinus, which may be related to a remote dentigerous cyst. Orbital govea are intact. Sinus govea show no fracture or deformity. Nasal bones and septum are intact. Visualized portions of the mandible demonstrate no fractures or subluxation. Zygomatic arches are intact. Pterygoid plates are intact. Visualized portions of the skull base and auditory canals are intact. Sinuses: Paranasal sinuses are aerated, without fluid levels, significant mucosal thickening, or mucoceles. Mastoid air cells are aerated. Soft tissues: No edema, masses, or fluid collections. No enlarged lymph nodes. No soft tissue lacerations or debris. Vascular: Visualized vascular structures appear normal in the absence of contrast. Bony vascular foramina and canals are intact. IMPRESSION: Plate and screw fixation seen of the anterior govea of both maxillary sinuses, without findings of failure or loosening. 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 on 02/02/2023 at 10:59 Approved by: Leonard Gates M.D. on 02/02/2023 at 11:04
== END ==
PROVIDERS: Family Provider Internal Medicine; PCP Family Medicine; Referring Provider Family Medicine; Visit Provider Family Medicine
DX: R97.20 Elevated prostate specific antigen [PSA] (principal); K40.90 Unilateral inguinal hernia, without obstruction or gangrene, not specified as recurrent; J34.89 Other specified disorders of nose and nasal sinuses; J34.2 Deviated nasal septum; Z87.81 Personal history of (healed) traumatic fracture; Z98.890 Other specified postprocedural states
CPT/HCPCS: 70486; 74177; Q9967

== ENCOUNTER 2023-02-25 14:47 | Emergency (ER) | payer OTHER, SELFPAY ==
[2023-02-25 15:11] VITALS: BP 130/90; PULSE 83; RESP 18; TEMP 36.9; O2SAT 97; BMI 30.2
--- NOTE | 2023-02-25 15:19 | DI.RAD.S_ITS ---
This report includes an Addendum and supersedes previous reports for this exam. PROCEDURE: XR RIBS LT MIN 3V W CXR1V INDICATIONS: pain left rib anterior TECHNIQUE: 3 views of the left ribs were acquired, along with a single view chest. COMPARISON: None. FINDINGS: Surgical changes and devices: None. Bones and chest wall: No fractures or dislocations. No suspicious bony lesions. Overlying soft tissues appear unremarkable. Lungs and pleura: No pleural effusions or pneumothorax. Lungs appear clear. Mediastinum: Mediastinal contours appear normal. Heart size is normal. IMPRESSION: No visualized acute fracture or dislocation. However, if clinical concern and/or pain persist, short interval imaging followup in 7-10 days is recommended, as occult injury cannot be definitively excluded. Dictated by: Kath Prince M.D. on 02/25/2023 at 16:16 Approved by: Kath Prince M.D. on 02/25/2023 at 16:17 ADDENDUM: There is very subtle cortical irregularity involving left posterior lateral 7th rib which may indicate a very subtle nondisplaced rib fracture, clinical correlation and follow-up is recommended. Dictated by: Jareth Camargo M.D. on 02/25/2023 at 17:08 Approved by: Jareth Camargo M.D. on 02/25/2023 at 17:09
--- NOTE | 2023-02-25 15:28 | ED_ITS ---
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 He states that he was using a heavy bar and pushing forward with all of his might when he felt a left upper chest pop and felt immediate pain. He states that it was tolerable last night but today he is had pain consistently. Yesterday he states it was painful only with deep inspiration, today he states it is painful all of the time. Denies shortness of breath, wheezing, difficulty breathing or sensation changes. Related Data Previous Rx's Medication Instructions Recorded epinephrine 0.3 mg/0.3 mL 0.3 mg (0.3 mL) IM Q5-15M PRN 07/15/21 injection, auto-injector (EpiPen) anaphylaxis #2 ea paroxetine HCl 40 mg tablet See Rx Instructions .Route 08/28/22 .COMPLEX #90 tabs buspirone 15 mg tablet 15 mg PO TID #270 tabs 11/16/22 pantoprazole 40 mg tablet,delayed 40 mg PO DAILY #30 tabs 01/05/23 release (Protonix) alprazolam 0.5 mg tablet (Xanax) 0.5 mg PO BID PRN anxiety #20 tabs 02/11/23 lidocaine 5 % topical patch 1 patch topical DAILY #30 ea 02/25/23 (Lidoderm) methocarbamol 750 mg tablet 750 mg PO Q8H PRN muscle spasm #30 02/25/23 tabs Allergies Allergy/AdvReac Type Severity Reaction Status Date / Time No Known Drug Allergies Allergy Verified 02/25/23 15:17 Review of Systems <NORA Ashton - Last Filed: 02/25/23 17:18> Review of Systems ROS Unobtainable: All systems reviewed & are unremarkable except as noted in HPI and below Patient History <NORA Ashton - Last Filed: 02/25/23 17:18> Medical History Anxiety (~2001) Anxiety Carpal tunnel syndrome (~2012) Chicken pox (~1974) Chronic back pain (~2012) Chronic migraine Depression Elevated PSA, between 10 and less than 20 ng/ml Family history of prostate cancer Generalized anxiety disorder Hyperglycemia Knee effusion, right Migraines Mixed hyperlipidemia (03/28/13) Right ankle injury Right ankle sprain Strain of right knee Strain of tendon of left rotator cuff Surgical History Anesthesia History of carpal tunnel repair (~2012) History of facial fracture repair History of mandibular surgery (~1989) History of nasal surgery (~2001) History of surgery (~2013) Status post knee surgery (~2012) Family History Father Prostate cancer Social History Smoking Status: Never smoker Smoking Status: Never smoker alcohol intake frequency: 0-2 drinks per day Substance Use Type: does not use Exam <NORA Ashton - Last Filed: 02/25/23 17:18> Narrative Exam Narrative: Reviewed vitals signs and nursing notes. General: Pleasant, sitting upright, in no acute distress, well groomed, afebrile HEENT: symmetrical facial expressions, moist mucous membranes, neck is supple CV: regular rate and rhythm, warm extremities Respiratory: normal work of breathing, without tachypnea or hypoxia. GI: abdomen soft, nondistended, without CVA tenderness bilaterally. MSK: moves all extremities, no weakness, normal tone, ambulatory without deficit Skin: brisk capillary refill, without rash or wound Neuro: clear speech and normal cognition, A&O x3, GCS 15, no focal motor or sensation deficits Initial Vital Signs Initial Vital Signs: Vital Signs Temperature 98.4 F 02/25/23 15:11 Pulse Rate 83 02/25/23 15:11 Respiratory Rate 18 02/25/23 15:11 Blood Pressure 130/90 02/25/23 15:11 Pulse Oximetry 97 02/25/23 15:11 Oxygen Delivery Method Room Air 02/25/23 15:11 <Pascual Perez DO - Last Filed: 02/25/23 22:30> Initial Vital Signs Initial Vital Signs: Vital Signs Temperature 98.4 F 02/25/23 15:11 Pulse Rate 83 02/25/23 15:11 Respiratory Rate 18 02/25/23 15:11 Blood Pressure 130/90 02/25/23 15:11 Pulse Oximetry 97 02/25/23 15:11 Oxygen Delivery Method Room Air 02/25/23 15:11 Course <NORA Ashton - Last Filed: 02/25/23 17:18> Orders Ordered: ED Orders 02/25/23 15:18 EKG-12 Lead Stat 02/25/23 15:19 XR ribs LT min 3V w CXR1V Routine Discontinued Medications Ketorolac Tromethamine (Ketorolac 30 Mg/Ml Vial) 30 mg IM NOW ONE Stop: 02/25/23 15:29 Last Admin: 02/25/23 15:40 Dose: 30 mg Documented By: AMU Lidocaine (Lidocaine Patch 1 Each Adh..Patch) 1 each TOP NOW ONE Stop: 02/25/23 15:29 Last Admin: 02/25/23 15:40 Dose: 1 each Documented By: AMU Ondansetron HCl (Ondansetron 4 Mg Odt) 4 mg SL NOW ONE Stop: 02/25/23 15:29 Last Admin: 02/25/23 15:40 Dose: 4 mg Documented By: AMU Vital Signs Vital signs: Vital Signs - 8 hr 02/25/23 15:11 Temperature 98.4 F Pulse Rate 83 Respiratory Rate 18 Blood Pressure 130/90 Pulse Oximetry 97 Oxygen Delivery Method Room Air <Pascual Perez DO - Last Filed: 02/25/23 22:30> Orders Ordered: ED Orders 02/25/23 15:18 EKG-12 Lead Stat 02/25/23 15:19 XR ribs LT min 3V w CXR1V Routine Discontinued Medications Ketorolac Tromethamine (Ketorolac 30 Mg/Ml Vial) 30 mg IM NOW ONE Stop: 02/25/23 15:29 Last Admin: 02/25/23 15:40 Dose: 30 mg Documented By: AMU Lidocaine (Lidocaine Patch 1 Each Adh..Patch) 1 each TOP NOW ONE Stop: 02/25/23 15:29 Last Admin: 02/25/23 15:40 Dose: 1 each Documented By: LISA Ondansetron HCl (Ondansetron 4 Mg Odt) 4 mg SL NOW ONE Stop: 02/25/23 15:29 Last Admin: 02/25/23 15:40 Dose: 4 mg Documented By: LISA Vital Signs Vital signs: Vital Signs - 8 hr 02/25/23 15:11 Temperature 98.4 F Pulse Rate 83 Respiratory Rate 18 Blood Pressure 130/90 Pulse Oximetry 97 Oxygen Delivery Method Room Air [facility] - Chest Pain <NORA Ashton - Last Filed: 02/25/23 17:18> ECG Data Interpretation: EKG independently reviewed by myself at [1527] reveals normal sinus rhythm at [72] bpm with regular axis and intervals. No STEMI, ST segment changes, arr hythmia, or acute ischemic changes. [facility] Narrative Medical decision making narrative: Chief Complaint: left rib pain Independent historian: patient Multiple etiologies for patient's symptoms considered including, but not limited to: Rib fracture, dislocated rib, cartilage injury, traumatic pneumothorax, muscle sprain or tear, pulmonary contusion, diaphragmatic trauma, bronchial injury pneumomediastinum I have independently reviewed the patient's vital signs and nursing notes as well as prior records if available. My interpretation of imaging: lt rib xr not show pneumothorax or acute fracture on my read My interpretation EKG shows normal sinus rhythm with nonspecific T-wave abnormality no ischemic changes. Course of care: Rib x-rays and pain medication including lidocaine patch, Zofran, and Toradol for his pain. 1700 called the radiologist as the radiology report has not transferred over, Dr. Prince who is on for Radiology at this time is not a workstation and does not remember seeing acute rib fracture recently. She will navigate why there is no report available Radiologist called back and reported a cortical irregularity on the left 7th rib concerning for fracture. This was relayed to the patient. He understands to use something topical like lidocaine patch, ice, and Tylenol ibuprofen as needed for his pain. He will follow up with his PCP as needed, he was provided pain medication and understands to follow-up as needed. Social considerations that may affect disposition: none Questions are addressed and there is agreement with the plan and for follow-up. I consulted with the ED attending physician Dr. Perez as needed for higher level of care considerations and they were available for discussion and recommendations regarding plan of care and diagnostic testing. Patient is appropriate for outpatient management. Discharge Plan Departure Patient Disposition: Home Clinical Impression: Left rib fracture Qualifiers: Encounter type: initial encounter Rib fracture type: single rib Fracture type: closed Qualified Code(s): S22.32XA - Fracture of one rib, left side, initial encounter for closed fracture Instructions: DI for Rib Fracture, DI for Rib Contusion Activity Restrictions/Additional Instructions: *You have been diagnosed with an irregularity visualized on your 7th rib which could be related to acute fracture or cartilage pulling off of the bone. Please use something topical in addition to Tylenol and ibuprofen as needed for your pain. Remember to take deep breaths throughout the day to help prevent pneumonia. I hope you start feeling better soon, thank you for your patience. Lidocaine patches other most helpful, you may pick these up any drug store, it will take time for this is start feeling better so please use ice, oral medication with topical agents until you can be more comfortable. *What to do: *Please continue to take your regular medications as directed. [ ] New medication prescriptions sent to your pharmacy: [ ] [ ] New medication written as a paper prescription [x ] No new medications given *Please call and schedule follow up with your primary care provider in 2-3 days, at least for an update. Let them know you were seen in the Emergency Department for the above problem. We will electronically transmit a record of today's note if your PCP or specialist is in our system. *If you do not have a primary care provider please contact [phone] to establish care with one of the [facility] primary care providers. *Return to the Emergency Department for worsening symptoms, inability to keep liquids down, fever greater than 101F, chills, or other concerning symptom. Prescriptions: New methocarbamol 750 mg tablet 750 mg PO Q8H PRN (Reason: muscle spasm) Qty: 30 0RF lidocaine [Lidoderm] 5 % adhesive patch,medicated 1 patch topical DAILY Qty: 30 0RF Rx Instructions: leave on most painful area for up to 12 hrs No Action paroxetine HCl 40 mg tablet See Rx Instructions .ROUTE .COMPLEX Qty: 90 1RF Dose Instruction: TAKE 1 TABLET BY MOUTH DAILY Rx Instructions: TAKE 1 TABLET BY MOUTH DAILY buspirone 15 mg tablet 15 mg PO TID Qty: 270 1RF pantoprazole [Protonix] 40 mg tablet,delayed release (DR/EC) 40 mg PO DAILY Qty: 30 1RF alprazolam [Xanax] 0.5 mg tablet 0.5 mg PO BID PRN (Reason: anxiety) Qty: 20 0RF epinephrine [EpiPen] 0.3 mg/0.3 mL auto-injector 0.3 mg IM Q5-15M PRN (Reason: anaphylaxis) Qty: 2 0RF Rx Instructions: do not exceed 3 doses per episode Referrals: David Hartman DO [Primary Care Provider] - Stand Alone Forms: Patient Portal/API <Pascual Perez DO - Last Filed: 02/25/23 22:30> Cosign ED Attending Cosignature Attestation: I was immediately available in the department for consultation. This documentation has been reviewed and I agree with assessment and plan. Supervised by Pascual Perez DO
[2023-02-25] MEDS: KETOROLAC 30 MG/ML VIAL IM (15:40)
[2023-02-25] MEDS: LIDOCAINE PATCH 1 EACH ADH..PATCH TOP (15:40)
[2023-02-25] MEDS: ONDANSETRON 4 MG ODT SL (15:40)
== END 2023-02-25 17:34 | disposition home or self-care (01) ==
PROVIDERS: Emergency Provider Nurse Practitioner Critical Care Medicine; Family Provider Internal Medicine; PCP Family Medicine
DX: S22.32XA Fracture of one rib, left side, initial encounter for closed fracture (principal); R07.9 Chest pain, unspecified; W22.8XXA Striking against or struck by other objects, initial encounter
CPT/HCPCS: 71101; 93005; 93010; 96372; 99284; J1885

== ENCOUNTER → 2023-07-28 08:29 | Outpatient (CLI) | payer OTHER, SELFPAY ==
[2023-07-28 09:11] LABS: Alanine Aminotransferase 25 IU/L (<50); Albumin 4.3 g/dL (3.5-5.0); Albumin Globulin Ratio 1.6 (1.0-2.8); Alkaline Phosphatase 98 U/L (38-126); Aspartate Aminotransferase 31 IU/L (17-59); BUN Creatinine Ratio 19.4 (6-22); Bilirubin Total 1.2 mg/dL (0.2-1.3); Blood Urea Nitrogen 12 mg/dL (9-20); Calcium 9.3 mg/dL (8.4-10.2); Carbon Dioxide 26 mmol/L (22-32); Chloride 105 mmol/L (98-107); Estimated Glomerular Filt Rate > 60 mL/min (>60); Globulin 2.7 g/dL (1.7-4.1); Glucose 141 mg/dL (70-100); HEMOLYSIS < 15 (0-50); Potassium 3.4 mmol/L (3.4-5.1); Sodium 139 mmol/L (137-145)
[2023-07-28 09:24] LABS: Free T4, Direct Thyroxine 1.09 ng/dL (0.78-2.19)
[2023-07-28 09:36] LABS: Prostate Specific Antigen 2.87 ng/mL (0.10-4.00)
[2023-07-28 09:38] LABS: Thyroid Stimulating Hormone 0.742 uIU/mL (0.47-4.68)
[2023-07-28 10:12] LABS: Folate 10.3 ng/mL (2.76-20.0); Vitamin B12 762 pg/mL (239-931)
== END ==
PROVIDERS: Family Provider Internal Medicine; PCP Family Medicine; Referring Provider Internal Medicine Hematology & Oncology; Visit Provider Internal Medicine Hematology & Oncology
DX: C61 Malignant neoplasm of prostate (principal); C77.5 Secondary and unspecified malignant neoplasm of intrapelvic lymph nodes; Z79.818 Long term (current) use of other agents affecting estrogen receptors and estrogen levels; R53.81 Other malaise; F41.9 Anxiety disorder, unspecified; F41.8 Other specified anxiety disorders; R53.83 Other fatigue; R23.2 Flushing; R63.5 Abnormal weight gain
CPT/HCPCS: 36415; 80053; 82607; 82746; 84153; 84439; 84443

== ENCOUNTER 2023-11-15 14:03 | Emergency (ER) | payer OTHER, SELFPAY ==
[2023-11-15 14:04] VITALS: BP 135/87; PULSE 100; RESP 16; O2SAT 96; BMI 31.8
--- NOTE | 2023-11-15 14:17 | DI.RAD.S_ITS ---
PROCEDURE: XR KNEE LT 3V INDICATIONS: fall on [place]berto / hip and knee pain TECHNIQUE: 3 views of the knee were acquired. COMPARISON: None. FINDINGS: Bones: No fractures or dislocations. No suspicious bony lesions. Mild tricompartmental osteoarthritis. Soft tissues: No joint effusion. No suspicious soft tissue calcifications. IMPRESSION: No acute bony abnormality or significant effusion. Dictated by: Olivia Pires MD, PhD on 11/15/2023 at 14:52 Approved by: Olivia Pires MD, PhD on 11/15/2023 at 14:52
--- NOTE | 2023-11-15 14:17 | DI.RAD.S_ITS ---
PROCEDURE: XR HIP W PEL IF DONE LT 2V INDICATIONS: fall on Wednesday / hip and knee pain TECHNIQUE: AP pelvis with lateral view(s) of the left hip(s). COMPARISON: [facility], CT, CT ABDOMEN PELVIS W CON, 02/02/2023, 11:27. FINDINGS: Bones: No fractures or dislocations. Pelvic ring appears intact. No suspicious bony lesions. Mild to moderate bilateral hip osteoarthritis. Soft tissues: The visualized bowel gas pattern is normal. No suspicious soft tissue calcifications. Multiple surgical clips in the scrotum. Biopsy clips in the prostate. IMPRESSION: No acute bony abnormality. Dictated by: Olivia Pires MD, PhD on 11/15/2023 at 14:50 Approved by: Olivia Pires MD, PhD on 11/15/2023 at 14:52
--- NOTE | 2023-11-15 15:29 | ED.FALL ---
HPI - Fall General Chief Complaint: Fall Stated Complaint: fall on ice wednesday- Left knee pain since Time Seen by Provider: 11/15/23 14:56 Source: patient and family Mode of arrival: Ambulatory History of Present Illness HPI Narrative: This is a 53-year-old man with history of prostate cancer presenting with left knee and hip pain after a fall downstairs. Fall occurred 3 days ago, he slipped on some ice slid down the stairs having his left he flexed and externally rotated. He now has pain in the knee and has pain and a large bruise over his left hip. He has not anticoagulated. Patient states that he did hit his head and believes he had a brief loss of consciousness when this happened 3 days ago. He does not have a severe headache he has not been vomiting he has not had any mental status changes and he does not want to head CT. Related Data Previous Rx's Medication Instructions Recorded epinephrine 0.3 mg/0.3 mL 0.3 mg (0.3 mL) IM Q5-15M PRN 07/15/21 injection, auto-injector (EpiPen) anaphylaxis #2 ea lidocaine 5 % topical patch 1 patch topical DAILY #30 ea 02/25/23 (Lidoderm) methocarbamol 750 mg tablet 750 mg PO Q8H PRN muscle spasm #30 02/25/23 tabs buspirone 15 mg tablet 15 mg PO TID #270 tabs 05/25/23 alprazolam 0.5 mg tablet (Xanax) 0.5 mg PO BID PRN anxiety #60 tabs 05/28/23 paroxetine HCl 40 mg tablet See Rx Instructions .Route 08/26/23 .COMPLEX #90 tabs pantoprazole 40 mg tablet,delayed 40 mg PO DAILY #30 tabs 10/14/23 release oxycodone 5 mg tablet 5 mg PO Q6H PRN pain #14 tabs 11/15/23 Allergies Allergy/AdvReac Type Severity Reaction Status Date / Time No Known Drug Allergies Allergy Verified 11/15/23 14:04 Patient History Medical History Anxiety (~2001) Anxiety Carpal tunnel syndrome (~2012) Chicken pox (~1974) Chronic back pain (~2012) Chronic migraine Depression Elevated PSA, between 10 and less than 20 ng/ml Family history of prostate cancer Generalized anxiety disorder Hyperglycemia Knee effusion, right Migraines Mixed hyperlipidemia (03/28/13) Right ankle injury Right ankle sprain Strain of right knee Strain of tendon of left rotator cuff Surgical History Anesthesia History of carpal tunnel repair (~2012) History of facial fracture repair History of mandibular surgery (~1989) History of nasal surgery (~2001) History of surgery (~2013) Status post knee surgery (~2012) Family History Father Prostate cancer Social History Smoking Status: Never smoker Smoking Status: Never smoker alcohol intake frequency: 0-2 drinks per day Substance Use Type: does not use Exam Initial Vital Signs Initial Vital Signs: Vital Signs Pulse Rate 100 H 11/15/23 14:04 Respiratory Rate 16 11/15/23 14:04 Blood Pressure 135/87 11/15/23 14:04 Pulse Oximetry 96 11/15/23 14:04 Oxygen Delivery Method Room Air 11/15/23 14:04 Const General: No acute distress HENMT Head: normocephalic and atraumatic Neck Other: No midline tenderness or step-off neck is supple Neuro General: patient awake and patient oriented x3 Extrem Other: There is ecchymosis over the lateral left hip. He has good range of motion. There is no shortening or rotation of the lower extremity. The left knee is a bit swollen there is no palpable effusion he has decreased active range of motion secondary to pain distal neurovascular exam is intact. Course Orders Ordered: ED Orders 11/15/23 14:17 XR hip w pel if done LT 2V Stat XR knee LT 3V Stat Vital Signs Vital signs: Vital Signs - 8 hr 11/15/23 14:04 Pulse Rate 100 H Respiratory Rate 16 Blood Pressure 135/87 Pulse Oximetry 96 Oxygen Delivery Method Room Air MDM - Fall Imaging Data Left hip: My Impression: Independently reviewed, no fracture Radiologist's Impression: Radiology reported no acute bony injury Left knee: My Impression: Independently reviewed, no fracture no dislocation no effusion Radiologist's Impression: Radiology reported no acute bony injury MDM Narrative Medical decision making narrative: 53-year-old male with fall downstairs 3 days ago. He did report hitting his head, mental status has been intact since then he has not anticoagulated does not have vomiting does not have a serious headache he does not want a head CT. Neck is nontender I do not think cervical spine imaging is indicated. X-rays of his hip and knee which are his primary painful complaints heart without acute bony injury. Recommended symptomatic care including ibuprofen and I wrote a prescription for a few oxycodone, I am aware that he is on chronic opiates as well but I think he will need an increased dose for his acute injury. He already has a knee immobilizer which he will be using he declined crutches. He is advised to follow up with his primary care provider or orthopedist for recheck soon. Discharge Plan Departure Patient Disposition: Home Clinical Impression: Left knee sprain Qualifiers: Encounter type: initial encounter Involved ligament of knee: unspecified ligament Qualified Code(s): S83.92XA - Sprain of unspecified site of left knee, initial encounter Contusion of hip Qualifiers: Encounter type: initial encounter Laterality: left Qualified Code(s): S70.02XA - Contusion of left hip, initial encounter Activity Restrictions/Additional Instructions: X-rays today do not show any fracture. Use the knee brace that you already have as an immobilizer when you are up walk. Make an appointment with your primary care provider and or your orthopedic doctor for follow-up soon. I recommended use ibuprofen 600 mg 3 times a day take this with food. I have provided a prescription for a few oxycodone use as needed for pain. Be careful combining this with alprazolam. Ice may be helpful, if you use ice remove after 10-15 minutes and keep it from direct contact with your skin. I think it is okay to weight bear on your left leg as tolerated. Prescriptions: New oxycodone 5 mg tablet 5 mg PO Q6H PRN (Reason: pain) Qty: 14 0RF No Action buspirone 15 mg tablet 15 mg PO TID Qty: 270 1RF Rx Instructions: due for appt with pcp alprazolam [Xanax] 0.5 mg tablet 0.5 mg PO BID PRN (Reason: anxiety) Qty: 60 0RF paroxetine HCl 40 mg tablet See Rx Instructions .ROUTE .COMPLEX Qty: 90 1RF Dose Instruction: TAKE 1 TABLET BY MOUTH DAILY Rx Instructions: TAKE 1 TABLET BY MOUTH DAILY pantoprazole 40 mg tablet,delayed release (DR/EC) 40 mg PO DAILY Qty: 30 0RF epinephrine [EpiPen] 0.3 mg/0.3 mL auto-injector 0.3 mg IM Q5-15M PRN (Reason: anaphylaxis) Qty: 2 0RF Rx Instructions: do not exceed 3 doses per episode methocarbamol 750 mg tablet 750 mg PO Q8H PRN (Reason: muscle spasm) Qty: 30 0RF lidocaine [Lidoderm] 5 % adhesive patch,medicated 1 patch topical DAILY Qty: 30 0RF Rx Instructions: leave on most painful area for up to 12 hrs Referrals: David Hartman DO [Primary Care Provider] - Stand Alone Forms: Patient Portal/API
[2023-11-15 15:35] VITALS: BP 130/76; PULSE 60; RESP 18; O2SAT 100
== END 2023-11-15 15:36 | disposition home or self-care (01) ==
PROVIDERS: Emergency Provider Emergency Medicine; Family Provider Internal Medicine; PCP Family Medicine
DX: S83.92XA Sprain of unspecified site of left knee, initial encounter (principal); S70.02XA Contusion of left hip, initial encounter; W00.1XXA Fall from stairs and steps due to ice and snow, initial encounter
CPT/HCPCS: 73502; 73562; 99283

== ENCOUNTER 2024-05-12 11:10 | Emergency (ER) | payer OTHER, SELFPAY ==
[2024-05-12] VITALS (12 sets, daily range): BP systolic 104–126; BP diastolic 56–83; PULSE 51–87; RESP 13–23; TEMP 36.7; O2SAT 95–98; BMI 33.2
[2024-05-12 12:27] LABS: Prothrombin Time 10.9 SECONDS (9.4-12.5)
[2024-05-12 12:30] LABS: Add Manual Diff / Slide Review NO; Basophils Absolute Auto 0 /uL (0-100); Basophils Percent Auto 0.5 % (0-2); Eosinophils Absolute Auto 100 /uL (0-450); Eosinophils Percent Auto 3.4 % (2-4); Hematocrit 35.8 % (41-53); Hemoglobin 12.1 g/dL (13.5-17.5); Lymphocytes Absolute Auto 600 /uL (1100-4500); Lymphocytes Percent Auto 16.3 % (25-40); Mean Corpuscular HGB Conc 33.7 % (30-36); Mean Corpuscular Hemoglobin 29.8 PG (26-34); Mean Corpuscular Volume 88.4 fL (80-100); Monocytes Absolute Auto 400 /uL (0-900); Monocytes Percent Auto 10.2 % (3-14); Neutrophils Absolute Auto 2700 /uL (1500-7000); Neutrophils Percent Auto 69.6 % (50-75); PTT Partial Thromboplastin Tim 31 SECONDS (25.1-36.5); Platelet Count 187 X10^3/uL (150-400); Red Blood Cell Count 4.05 X10^6/uL (4.5-5.9); Red Cell Distribution Width 14.4 % (11.6-14.8); White Blood Cell Count 3.8 X10^3/uL (4.5-11.0)
[2024-05-12 12:32] LABS: Alanine Aminotransferase 19 IU/L (<50); Albumin 4.1 g/dL (3.5-5.0); Albumin Globulin Ratio 1.6 (1.0-2.8); Alkaline Phosphatase 105 U/L (38-126); Aspartate Aminotransferase 36 IU/L (17-59); BUN Creatinine Ratio 14.3 (6-22); Bilirubin Total 0.7 mg/dL (0.2-1.3); Blood Urea Nitrogen 10 mg/dL (9-20); Calcium 8.9 mg/dL (8.4-10.2); Carbon Dioxide 28 mmol/L (22-32); Chloride 106 mmol/L (98-107); Estimated Glomerular Filt Rate > 60 mL/min (>60); Globulin 2.5 g/dL (1.7-4.1); Glucose 174 mg/dL (70-100); HEMOLYSIS < 15 (0-50); Potassium 3.6 mmol/L (3.4-5.1); Sodium 139 mmol/L (137-145); Total Protein 6.6 g/dL (6.3-8.2)
--- NOTE | 2024-05-12 14:48 | PC.NURSE ---
Pt ambulated to bathroom independently. Pt able to produce urine sample. Stool sample very small/smear. Dark clots visible.
[2024-05-12] MEDS: BUSPIRONE 5 MG TABLET 15 MG PO (15:56)
[2024-05-12] MEDS: OXYCODONE IR 5 MG TABLET 20 MG PO (15:58)
--- NOTE | 2024-05-12 16:22 | ED.GIBLEED ---
HPI - GI Bleed General Chief complaint: GI Bleed Stated complaint: cancer pt stage 4/bleeding, sent by provider Time Seen by Provider: 05/12/24 13:50 Source: patient Mode of arrival: Ambulatory History of Present Illness HPI Narrative: Patient is a 54-year-old male history of metastatic prostate cancer undergoing chemotherapy all of his treatment is at [facility] however he just had a CT scan at the end of January which did not show any evidence of disease. He presents today with 2 months of rectal bleeding. He reports that every day he has some bright red blood per rectum. He says sometimes it is when he wipes sometimes when he has flatulence he has no pain with bowel movements. He has a at least a little bit every day it has been ongoing it has not any worse today. He was feeling a bit weak he is extremely fatigued and has been for awhile. He has not on any sort of antiplatelet or anticoagulation medication. He has never had a colonoscopy. He denies any significant abdominal pain Related Data Home Medications Medication Instructions Recorded Confirmed lupron IM [id number] 02/24/24 prednisone PO 02/24/24 tamsulosin 0.4 mg capsule (Flomax) 0.4 mg PO DAILY 02/24/24 02/24/24 zytiga PO DAILY 02/24/24 Previous Rx's Medication Instructions Recorded epinephrine 0.3 mg/0.3 mL 0.3 mg (0.3 mL) IM Q5-15M PRN 07/15/21 injection, auto-injector (EpiPen) anaphylaxis #2 ea buspirone 15 mg tablet 15 mg PO TID #270 tabs 05/25/23 alprazolam 0.5 mg tablet (Xanax) 0.5 mg PO BID PRN anxiety #60 tabs 05/28/23 paroxetine HCl 40 mg tablet See Rx Instructions .Route 08/26/23 .COMPLEX #90 tabs pantoprazole 40 mg tablet,delayed 40 mg PO DAILY #30 tabs 10/14/23 release oxycodone 5 mg tablet 5 mg PO Q6H PRN pain #14 tabs 11/15/23 Allergies Allergy/AdvReac Type Severity Reaction Status Date / Time No Known Drug Allergies Allergy Verified 02/24/24 08:51 Patient History Medical History Family history of prostate cancer Elevated PSA, between 10 and less than 20 ng/ml Hyperglycemia Right ankle sprain Right ankle injury Knee effusion, right Anxiety Strain of right knee Strain of tendon of left rotator cuff Generalized anxiety disorder Chronic migraine Depression Anxiety (~2001) Chronic back pain (~2012) Carpal tunnel syndrome (~2012) Chicken pox (~1974) Migraines Mixed hyperlipidemia (03/28/13) Surgical History History of facial fracture repair Anesthesia History of surgery (~2013) History of nasal surgery (~2001) History of mandibular surgery (~1989) Status post knee surgery (~2012) History of carpal tunnel repair (~2012) Family History Father Prostate cancer Social History Smoking Status: Never smoker Smoking Status: Never smoker alcohol intake frequency: 0-2 drinks per day Substance Use Type: does not use Exam Initial Vital Signs Initial Vital Signs: Vital Signs Temperature 98.1 F 05/12/24 11:52 Pulse Rate 65 05/12/24 11:52 Respiratory Rate 14 05/12/24 11:52 Blood Pressure 126/83 05/12/24 11:52 Pulse Oximetry 97 05/12/24 11:52 Oxygen Delivery Method Room Air 05/12/24 11:52 GENERAL: Alert pleasant 54-year-old male and in no acute distress. HEENT: Head atraumatic,EOMI, pupils reactive, face symmetric, moist mucous membranes CARDIOVASCULAR: Regular rate and rhythm without murmurs, rubs or gallops. RESPIRATORY: Breath sounds equal bilaterally, no wheezes rales or rhonchi. ABDOMEN: Soft, nontender. Normoactive bowel sounds all 4 quadrants. No guarding or rebound. RECTAL: No hemorrhoids no gross blood EXTREMITIES: Normal range of motion, no clubbing or edema. Neurovascularly intact NEUROLOGICAL: Alert and oriented x4.Normal gait and speech. ] SKIN: Warm, dry, no laceration, no petechiae, no rashes or lesions. Course Orders Ordered: ED Orders 05/12/24 12:03 EKG-12 Lead Stat 05/12/24 12:11 Complete Blood Count AUTO DIFF Stat Comprehensive Metabolic Panel Stat PTT Partial Thromboplastin Al Stat Prothrombin Time INR Stat 05/12/24 16:43 CT angio Abd/Pel GI Bleed Stat Discontinued Medications Buspirone HCl (Buspirone 5 Mg Tablet) 15 mg PO NOW ONE Stop: 05/12/24 15:42 Last Admin: 05/12/24 15:56 Dose: 15 mg Documented By: CAMPBELL Ondansetron HCl (Ondansetron 4 Mg/2 Ml Inj) 4 mg IV NOW PRN PRN Reason: Nausea And Vomiting Oxycodone HCl (Oxycodone 5 Mg/5 Ml Oral Solution) 20 mg PO NOW ONE Stop: 05/12/24 15:41 Last Admin: 05/12/24 15:50 Dose: Not Given Documented By: CAMPBELL Oxycodone HCl (Oxycodone Ir 5 Mg Tablet) 20 mg PO NOW ONE Stop: 05/12/24 16:01 Last Admin: 05/12/24 15:58 Dose: 20 mg Documented By: CAMPBELL Vital Signs Vital signs: Vital Signs - 8 hr 05/12/24 11:52 05/12/24 12:45 05/12/24 12:46 Temperature 98.1 F Pulse Rate 65 60 58 L Respiratory Rate 14 Blood Pressure 126/83 Pulse Oximetry 97 97 97 Oxygen Delivery Method Room Air 05/12/24 12:46 05/12/24 12:48 05/12/24 12:48 Temperature Pulse Rate 59 L Respiratory Rate 13 Blood Pressure 122/74 114/79 Pulse Oximetry 97 Oxygen Delivery Method 05/12/24 13:00 05/12/24 13:01 05/12/24 13:01 Temperature Pulse Rate 56 L 58 L Respiratory Rate 14 14 Blood Pressure 104/56 L Pulse Oximetry 96 97 Oxygen Delivery Method 05/12/24 13:30 05/12/24 13:30 05/12/24 14:00 Temperature Pulse Rate 62 51 L Respiratory Rate 23 Blood Pressure 106/68 Pulse Oximetry 96 95 Oxygen Delivery Method 05/12/24 14:00 05/12/24 15:03 05/12/24 15:04 Temperature Pulse Rate 87 68 Respiratory Rate 21 Blood Pressure 117/71 Pulse Oximetry 95 Oxygen Delivery Method 05/12/24 15:04 05/12/24 15:30 05/12/24 15:30 Temperature Pulse Rate 65 Respiratory Rate 18 Blood Pressure 115/77 120/75 Pulse Oximetry 98 Oxygen Delivery Method 05/12/24 17:48 Temperature Pulse Rate 74 Respiratory Rate Blood Pressure 122/70 Pulse Oximetry 98 Oxygen Delivery Method Room Air MDM - GI Bleed Lab Data 05/12/24 12:11 05/12/24 12:11 Labs: Lab Results 05/12/24 Range/Units 12:11 WBC 3.8 L (4.5-11.0) X10^3/uL RBC 4.05 L (4.5-5.9) X10^6/uL Hgb 12.1 L (13.5-17.5) g/dL Hct 35.8 L (41-53) % MCV 88.4 (80-100) fL MCH 29.8 (26-34) PG MCHC 33.7 (30-36) % RDW 14.4 (11.6-14.8) % Plt Count 187 (150-400) X10^3/uL Neut % (Auto) 69.6 (50-75) % Lymph % (Auto) 16.3 L (25-40) % [place] % (Auto) 10.2 (3-14) % Eos % (Auto) 3.4 (2-4) % Baso % (Auto) 0.5 (0-2) % Neut # (Auto) 2700 (0049-4912) /uL Lymph # (Auto) 600 L (4874-3549) /uL [place] # (Auto) 400 (0-900) /uL Eos # (Auto) 100 (0-450) /uL Baso # (Auto) 0 (0-100) /uL PT 10.9 (9.4-12.5) SECONDS INR 1.0 (0.9-1.3) APTT 31 (25.1-36.5) SECONDS Sodium 139 (137-145) mmol/L Potassium 3.6 (3.4-5.1) mmol/L Chloride 106 (98-107) mmol/L Carbon Dioxide 28 (22-32) mmol/L BUN 10 (9-20) mg/dL Creatinine 0.70 (0.66-1.25) mg/dL Estimated GFR > 60 (>60) mL/min BUN/Creatinine Ratio 14.3 (6-22) Glucose 174 H (70-100) mg/dL Calcium 8.9 (8.4-10.2) mg/dL Total Bilirubin 0.7 (0.2-1.3) mg/dL AST 36 (17-59) IU/L ALT 19 (<50) IU/L Alkaline Phosphatase 105 (38-126) U/L Total Protein 6.6 (6.3-8.2) g/dL Albumin 4.1 (3.5-5.0) g/dL Globulin 2.5 (1.7-4.1) g/dL Albumin/Globulin Ratio 1.6 (1.0-2.8) Point of Care Testing Stool Occult Blood Positive Urine Dip Bedside Urine Glucose Negative Bedside Urine Bilirubin - Negative Bedside Urine Ketone - Negative Urine Specific [place] 1.020 Bedside Urine Occult Blood - Negative Bedside Urine pH 5.5 Bedside Urine Protein - Negative Bedside Urine Urobilinogen - Negative Bedside Urine Nitrite - Negative Bedside Urine Leukocytes - Negative Esterase Imaging Data CT scan - abdomen/pelvis: Radiologist's Impression: PROCEDURE: CT ANGIO ABD/PEL GI BLEED INDICATIONS: GI Bleed, with history of prostate cancer TECHNIQUE: After the administration of intravenous contrast, 2.5 mm thick sections acquired from the diaphragm to the symphysis. 10 mm maximum-intensity projection (MIP) reformats were then acquired. For radiation dose reduction, the following was used: automated exposure control. COMPARISON: [facility], CT, CT ABDOMEN PELVIS W CON, 02/02/2023, 11:27. Outside Film, MR, MR PELVIS WITH/WITHOUT CONTRAST, 04/08/2023, 13:17. Outside Film, NM, NM BONE SCAN WHOLE BODY, 04/22/2023, 11:49. Outside Film, NM, PET NECK TO MID THIGH, 05/13/2023, 14:45. FINDINGS: Image Quality: Diagnostic. Abdominal aorta: No aortic aneurysm or evidence of acute aortic syndrome. Mesenteric arteries: Patent without hemodynamically significant stenosis. Renal arteries: Patent without hemodynamically significant stenosis. OTHER: Lower Chest: No significant findings. Liver: No solid mass. Liver is hypoattenuating, consistent with fatty infiltration. Gallbladder: No radiopaque gallstones or wall thickening. Biliary ducts: No biliary dilation. Pancreas: No ductal dilation. Spleen: Size is within normal limits. Adrenal Glands: No adrenal nodules. Kidneys and Ureters: No hydronephrosis. No solid mass. No complex renal cystic lesion which requires follow up. Stomach and Bowel: Scattered diverticula are seen in the colon without signs of acute diverticulitis. Mildly hyperdense stool is seen in the rectum. No active contrast extravasation is seen into the bowel lumen. Mild circumferential rectal wall thickening is seen. There is trace perirectal fat stranding. Peritoneum: No abnormal intraperitoneal fluid. No free air. Ventral Wall: No hernia. Abdominal Nodes: No retroperitoneal or mesenteric adenopathy by size criteria. Vessels: Aorta and inferior vena cava are normal in size. PELVIS: Pelvic Organs: Surgical clips are seen in the region the prostate. Bladder: Bladder wall is diffusely thickened. The bladder is under distended. Pelvic Nodes: No enlarged lymph nodes. Miscellaneous: Bilateral fat containing inguinal hernias. Surgical clips are seen in the scrotum. Bones: No aggressive osseous abnormality. IMPRESSION: 1. No active contrast extravasation is seen into the bowel lumen. No significant arterial abnormality in the abdomen or pelvis. 2. Mild circumferential rectal wall thickening is nonspecific but may indicate proctitis. Radiation proctitis is not excluded given patient's history. 3. Colonic diverticulosis without signs of acute diverticulitis. 4. Diffuse bladder wall thickening may be related to underdistention, cystitis, or chronic outlet obstruction. 5. Mild hepatic steatosis. Approved by: Loco Vasquez M.D. on 05/12/2024 at 17:25 ECG Data Attestation: I personally reviewed and interpreted this ECG as follows: MDM Narrative Medical decision making narrative: Patient 54-year-old male with history of metastatic prostate cancer but currently no evidence of disease presenting today with 2 months of rectal bleeding. It sounds as though he is having small bits bright red blood per rectum ongoing. He has not having large amounts of blood or bloody stool. He has no significant abdominal pain dizziness weakness or lightheadedness. He has never had a colonoscopy. Known exam he is hemodynamically stable he is minimal abdominal pain and he has no blood per rectum no evidence of hemorrhoids either Blood work has been reviewed hemoglobin 12.1 hematocrit 35.8 previously 13.3/40.2 WBC 3.8, INR 1.0, PTT 31, sodium 139 potassium 3 point chloride 106 carbon dioxide 20 BUN 10 creatinine 0.7 glucose 174, bilirubin 0.7 AST 36 AST 19 alk-phos 105 CT imaging does not show any active bleeding or masses Patient is hemodynamically stable he has no significant anemia or blood loss he has had ongoing rectal bleeding for 2 months. I strongly encouraged him to kit a colonoscopy. Met this time no need for admission to the hospital. Discharge Plan Departure Patient Disposition: Home Clinical Impression: Bright red rectal bleeding Instructions: DI for Rectal Bleeding Activity Restrictions/Additional Instructions: *You have been diagnosed with rectal bleeding *What to do: At this time you do need a colonoscopy. There are no masses and your CT and blood work are overall reassuring. *Continue to take medications as directed *Follow up with your primary care provider in 2-3 days or call [phone] Recommend that you call [facility] to schedule colonoscopy for ongoing rectal bleeding, you may need referral from your PCP *Return to ER if you should have dizziness lightheadedness passing out chest pain shortness of breath or any new, worsening or concerning symptoms Prescriptions: No Action buspirone 15 mg tablet 15 mg PO TID Qty: 270 1RF Rx Instructions: due for appt with pcp alprazolam [Xanax] 0.5 mg tablet 0.5 mg PO BID PRN (Reason: anxiety) Qty: 60 0RF paroxetine HCl 40 mg tablet See Rx Instructions .ROUTE .COMPLEX Qty: 90 1RF Dose Instruction: TAKE 1 TABLET BY MOUTH DAILY Rx Instructions: TAKE 1 TABLET BY MOUTH DAILY pantoprazole 40 mg tablet,delayed release (DR/EC) 40 mg PO DAILY Qty: 30 0RF lupron IM [id number] zytiga PO DAILY prednisone PO tamsulosin [Flomax] 0.4 mg capsule 0.4 mg PO DAILY oxycodone 5 mg tablet 5 mg PO Q6H PRN (Reason: pain) Qty: 14 0RF epinephrine [EpiPen] 0.3 mg/0.3 mL auto-injector 0.3 mg IM Q5-15M PRN (Reason: anaphylaxis) Qty: 2 0RF Rx Instructions: do not exceed 3 doses per episode Referrals: [facility] [Provider Group] David Hartman DO [Primary Care Provider] - Stand Alone Forms: Patient Portal/API
--- NOTE | 2024-05-12 16:43 | DI.CT.S_ITS ---
PROCEDURE: CT ANGIO ABD/PEL GI BLEED INDICATIONS: GI Bleed, with history of prostate cancer TECHNIQUE: After the administration of intravenous contrast, 2.5 mm thick sections acquired from the diaphragm to the symphysis. 10 mm maximum-intensity projection (MIP) reformats were then acquired. For radiation dose reduction, the following was used: automated exposure control. COMPARISON: [facility], CT, CT ABDOMEN PELVIS W CON, 02/02/2023, 11:27. Outside Film, MR, MR PELVIS WITH/WITHOUT CONTRAST, 04/08/2023, 13:17. Outside Film, NM, NM BONE SCAN WHOLE BODY, 04/22/2023, 11:49. Outside Film, NM, PET NECK TO MID THIGH, 05/13/2023, 14:45. FINDINGS: Image Quality: Diagnostic. Abdominal aorta: No aortic aneurysm or evidence of acute aortic syndrome. Mesenteric arteries: Patent without hemodynamically significant stenosis. Renal arteries: Patent without hemodynamically significant stenosis. OTHER: Lower Chest: No significant findings. Liver: No solid mass. Liver is hypoattenuating, consistent with fatty infiltration. Gallbladder: No radiopaque gallstones or wall thickening. Biliary ducts: No biliary dilation. Pancreas: No ductal dilation. Spleen: Size is within normal limits. Adrenal Glands: No adrenal nodules. Kidneys and Ureters: No hydronephrosis. No solid mass. No complex renal cystic lesion which requires follow up. Stomach and Bowel: Scattered diverticula are seen in the colon without signs of acute diverticulitis. Mildly hyperdense stool is seen in the rectum. No active contrast extravasation is seen into the bowel lumen. Mild circumferential rectal wall thickening is seen. There is trace perirectal fat stranding. Peritoneum: No abnormal intraperitoneal fluid. No free air. Ventral Wall: No hernia. Abdominal Nodes: No retroperitoneal or mesenteric adenopathy by size criteria. Vessels: Aorta and inferior vena cava are normal in size. PELVIS: Pelvic Organs: Surgical clips are seen in the region the prostate. Bladder: Bladder wall is diffusely thickened. The bladder is under distended. Pelvic Nodes: No enlarged lymph nodes. Miscellaneous: Bilateral fat containing inguinal hernias. Surgical clips are seen in the scrotum. Bones: No aggressive osseous abnormality. IMPRESSION: 1. No active contrast extravasation is seen into the bowel lumen. No significant arterial abnormality in the abdomen or pelvis. 2. Mild circumferential rectal wall thickening is nonspecific but may indicate proctitis. Radiation proctitis is not excluded given patient's history. 3. Colonic diverticulosis without signs of acute diverticulitis. 4. Diffuse bladder wall thickening may be related to underdistention, cystitis, or chronic outlet obstruction. 5. Mild hepatic steatosis. Approved by: Loco Vasquez M.D. on 05/12/2024 at 17:25
== END 2024-05-12 17:48 | disposition home or self-care (01) ==
PROVIDERS: Emergency Provider Emergency Medicine; Family Provider Internal Medicine; PCP Family Medicine
DX: K62.5 Hemorrhage of anus and rectum (principal); R79.89 Other specified abnormal findings of blood chemistry
CPT/HCPCS: 36415; 74174; 80053; 81003; 82272; 85025; 85610; 85730; 99284; Q9967

== ENCOUNTER → 2024-05-25 12:16 | Outpatient (CLI) | payer OTHER, SELFPAY ==
[2024-05-30 05:36] LABS: HSV 1 DNA Negative (Negative); HSV 2 DNA Negative (Negative)
== END ==
PROVIDERS: PCP Family Medicine; Referring Provider Ophthalmology; Visit Provider Ophthalmology
DX: B02.39 Other herpes zoster eye disease (principal); Z11.59 Encounter for screening for other viral diseases
CPT/HCPCS: 36415; 87529

== ENCOUNTER 2024-10-29 15:03 | Emergency (ER) | payer OTHER, SELFPAY ==
[2024-10-29 15:23] VITALS: BP 122/74; PULSE 74; RESP 16; TEMP 37.1; O2SAT 99; BMI 32.5
--- NOTE | 2024-10-29 15:35 | DI.CT.S_ITS ---
PROCEDURE: CT CERVICAL SPINE WO CON INDICATIONS: 5ft fall t-3, H/A, Dizzy, vomiting TECHNIQUE: Noncontrast 3 mm thick sections acquired from the skull base to the T4 level. Sagittal and coronal reformats were then constructed. For radiation dose reduction, the following was used: automated exposure control, adjustment of mA and/or kV according to patient size. COMPARISON: None. FINDINGS: Image quality: Diagnostic Bones: Owyh-up-plmyizyl spondylotic changes. Vertebral body heights are well maintained. No traumatic subluxation. Soft tissues: No apical pneumothorax. Prevertebral soft tissues are within normal limits. IMPRESSION: [id number] spondylotic changes. No acute displaced fracture or traumatic subluxation. If there is high concern for further derangement, consider MRI evaluation. Dictated by: Scott To M.D. on 10/29/2024 at 15:03 Approved by: Scott To M.D. on 10/29/2024 at 15:04
--- NOTE | 2024-10-29 15:35 | DI.CT.S_ITS ---
PROCEDURE: CT HEAD/BRAIN WO CON INDICATIONS: 5ft fall t-3, H/A, Dizzy, vomiting TECHNIQUE: Noncontrast 4.5 mm thick angled axial sections acquired from the foramen magnum to the vertex, with coronal and sagittal reformats. For radiation dose reduction, the following was used: automated exposure control, adjustment of mA and/or kV according to patient size. COMPARISON: None. FINDINGS: Image quality: Diagnostic CSF spaces: Basal cisterns are patent. Lateral ventricles are symmetric. Volume: Vascular calcifications. Periventricular white matter disease is commonly seen with chronic microangiopathy. Volume loss is present. These findings are mild Brain: No intracranial hemorrhage. Lucas-white differentiation is grossly maintained. Craniofacial structures: Craniofacial fixation hardware for fractures partially seen. IMPRESSION: No acute intracranial hemorrhage. Dictated by: Scott To M.D. on 10/29/2024 at 15:01 Approved by: Scott To M.D. on 10/29/2024 at 15:02
--- NOTE | 2024-10-29 15:54 | ED_ITS ---
HPI - Head Injury <Nighat Ward PA-C - Last Filed: 10/29/24 16:33> General Chief complaint: Head Injury Stated complaint: concussion t-3 Time Seen by Provider: 10/29/24 15:42 History of Present Illness HPI Narrative: 54-year-old male presents for evaluation following a fall out of bed on . He was staying in his mother's house was unfamiliar it was a smaller bed any went to get out any landed on the wooden floor striking the right side of his head he points to the periorbital area. He states he did not get knocked out, he takes no blood thinners, he states he did vomit that day for about 45 minutes but since that time he is gotten markedly better. At no time has he described any changes in his vision, no oral trauma, no lightheadedness or dizziness, no weakness. His history is significant for prostate cancer with mets he is under the care at [facility] and just completed radiation therapy and chemotherapy. Recent scans in May 2024 showed no current disease. 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 He does wear corrective lenses it is currently wearing 1 contact lens on his left side. Initially he did have some swelling in his eyelid was swollen shut, but overall he feels much better. He was concerned because 2 of his friends had some head injuries and had some unfortunate outcomes and he was convinced to ?get seen?. Currently he is without acute complaint. All other systems are reviewed and are negative. Related Data Home Medications Medication Instructions Recorded Confirmed lupron IM [id number] 02/24/24 prednisone PO 02/24/24 tamsulosin 0.4 mg capsule (Flomax) 0.4 mg PO DAILY 02/24/24 02/24/24 zytiga PO DAILY 02/24/24 Previous Rx's Medication Instructions Recorded epinephrine 0.3 mg/0.3 mL 0.3 mg (0.3 mL) IM Q5-15M PRN 07/15/21 injection, auto-injector (EpiPen) anaphylaxis #2 ea buspirone 15 mg tablet 15 mg PO TID #270 tabs 05/25/23 alprazolam 0.5 mg tablet (Xanax) 0.5 mg PO BID PRN anxiety #60 tabs 05/28/23 paroxetine HCl 40 mg tablet See Rx Instructions .Route 08/26/23 .COMPLEX #90 tabs pantoprazole 40 mg tablet,delayed 40 mg PO DAILY #30 tabs 10/14/23 release oxycodone 5 mg tablet 5 mg PO Q6H PRN pain #14 tabs 11/15/23 Allergies Allergy/AdvReac Type Severity Reaction Status Date / Time No Known Drug Allergies Allergy Verified 02/24/24 08:51 Review of Systems <Nighat Ward PA-C - Last Filed: 10/29/24 16:33> Review of Systems Narrative: All other systems reviewed and are negative. Patient History <Nighat Ward PA-C - Last Filed: 10/29/24 16:33> Medical History Family history of prostate cancer Elevated PSA, between 10 and less than 20 ng/ml Hyperglycemia Right ankle sprain Right ankle injury Knee effusion, right Anxiety Strain of right knee Strain of tendon of left rotator cuff Generalized anxiety disorder Chronic migraine Depression Anxiety (~2001) Chronic back pain (~2012) Carpal tunnel syndrome (~2012) Chicken pox (~1974) Migraines Mixed hyperlipidemia (03/28/13) Surgical History History of facial fracture repair Anesthesia History of surgery (~2013) History of nasal surgery (~2001) History of mandibular surgery (~1989) Status post knee surgery (~2012) History of carpal tunnel repair (~2012) Family History Father Prostate cancer Social History Smoking Status: Never smoker Smoking Status: Never smoker alcohol intake frequency: 0-2 drinks per day Exam <Nighat Ward PA-C - Last Filed: 10/29/24 16:33> Initial Vital Signs Initial Vital Signs: Vital Signs Temperature 98.7 F 10/29/24 15:23 Pulse Rate 74 10/29/24 15:23 Respiratory Rate 16 10/29/24 15:23 Blood Pressure 122/74 10/29/24 15:23 Pulse Oximetry 99 10/29/24 15:23 Oxygen Delivery Method Room Air 10/29/24 15:23 Vital signs reviewed and are normal. Const Other: Lying on the gurney, legs crossed, pleasantly conversing, no distress. Alert and oriented x4. [facility] [place] Head: normocephalic, No abrasion, No Winkler's sign, contusion, No raccoon eyes and No scalp tenderness Ears: hearing grossly normal bilaterally, external ears normal, TM's normal bilaterally, EAC's normal, mastoids normal and no periauricular adenopathy Nose: external nose normal, nares normal, nasal mucous membranes and turbinates normal, septum normal and No epistaxis Face and sinus: normal facial exam, sinuses nontender and face symmetric Mouth: oral mucosae normal, lip normal, tongue normal and oropharynx normal Teeth and gingiva: dentition normal and gingiva normal Throat: posterior oropharynx normal, tonsils normal and uvula midline Eyes General: Yes appearance normal, both eyes and all related structures Visual Santoro: normal visual santoro by confrontation Alignment and Position: alignment normal and position normal Periorbital: periorbital findings abnormal right periorbital ecchymosis Eyelids: eyelid abnormality right upper eyelid (Mild ecchymosis otherwise without swelling) Conjunctivae: conjunctivae normal Pupils: PERRL and normal by confrontation EOM: EOM intact bilaterally (No pain elicited) Neck Neck: normal visual inspection, full ROM, trachea midline and supple Resp Effort & Inspection: normal respiratory effort and able to speak in complete sentences Auscultation: clear to auscultation bilaterally, no rales, no rhonchi and no wheezes Cardio Rate: regular rate Rhythm: regular rhythm GI Inspection: normal to inspection and no abdominal wall ecchymosis Palpation: soft and no hepatosplenomegaly Percussion: normal to percussion Auscultation: normal bowel sounds Back/Spine/Pelvis Back: normal to inspection, No back tenderness and No ecchymosis Cervical Spine: normal cervical lordosis, cervical ROM normal, No cervical muscular tenderness, No pain with cervical ROM, No cervical spasm, No cervical spinal tenderness and No step off deformity Thoracic/Lumbar Spine: thoracic and lumbar spine normal to inspection and thoraco-lumbar ROM normal Sacroiliac Joints: nontender Skin Other: Mild bruising on the right periorbital area and below the lower eye lid, skin intact. Neuro General: patient alert, patient awake and patient oriented x3 Cranial Nerves: CN's II-XI intact bilaterally Speech: speech normal Gait: normal gait Motor: muscle tone normal throughout, strength 5/5 throughout and no pronator drift Sensory Exam: no sensory deficits noted DTR's: Rt Triceps: 1+, Lt Triceps: 1+, Rt Brachioradialis: 1+ and Lt Brachioradialis: 1+ Extrem General: normal to inspection, full ROM and capillary refill normal Other: Full weightbear ambulatory. <Cierra Gonzalez DO - Last Filed: 10/30/24 09:26> Initial Vital Signs Initial Vital Signs: Vital Signs Temperature 98.7 F 10/29/24 15:23 Pulse Rate 74 10/29/24 15:23 Respiratory Rate 16 10/29/24 15:23 Blood Pressure 122/74 10/29/24 15:23 Pulse Oximetry 99 10/29/24 15:23 Oxygen Delivery Method Room Air 10/29/24 15:23 Course <Nighat Ward PA-C - Last Filed: 10/29/24 16:33> Orders Ordered: ED Orders 10/29/24 15:35 CT cervical spine wo con Stat CT head/brain wo con Stat Vital Signs Vital signs: Vital Signs - 8 hr 10/29/24 15:23 Temperature 98.7 F Pulse Rate 74 Respiratory Rate 16 Blood Pressure 122/74 Pulse Oximetry 99 Oxygen Delivery Method Room Air <Cierra Gonzalez DO - Last Filed: 10/30/24 09:26> Orders Ordered: ED Orders 10/29/24 15:35 CT cervical spine wo con Stat CT head/brain wo con Stat Vital Signs Vital signs: Vital Signs - 8 hr 10/29/24 15:23 Temperature 98.7 F Pulse Rate 74 Respiratory Rate 16 Blood Pressure 122/74 Pulse Oximetry 99 Oxygen Delivery Method Room Air MDM - Head Injury <HALEY Farrell Last Filed: 10/29/24 16:33> Imaging Data CT scan - head: My Impression: Deferred to radiologist's interpretation below. Radiologist's Impression: PROCEDURE: CT HEAD/BRAIN WO CON INDICATIONS: 5ft fall t-3, H/A, Dizzy, vomiting TECHNIQUE: Noncontrast 4.5 mm thick angled axial sections acquired from the foramen magnum to the vertex, with coronal and sagittal reformats. For radiation dose reduction, the following was used: automated exposure control, adjustment of mA and/or kV according to patient size. COMPARISON: None. FINDINGS: Image quality: Diagnostic CSF spaces: Basal cisterns are patent. Lateral ventricles are symmetric. Volume: Vascular calcifications. Periventricular white matter disease is commonly seen with chronic microangiopathy. Volume loss is present. These findings are mild Brain: No intracranial hemorrhage. Lucas-white differentiation is grossly maintained. Craniofacial structures: Craniofacial fixation hardware for fractures partially seen. IMPRESSION: No acute intracranial hemorrhage. Dictated by: Scott To M.D. on 10/29/2024 at 15:01 Approved by: Scott To M.D. on 10/29/2024 at 15:02 CT - cervical spine: My Impression: Deferred to radiologist's interpretation below. Radiologist's Impression: PROCEDURE: CT CERVICAL SPINE WO CON INDICATIONS: 5ft fall t-3, H/A, Dizzy, vomiting TECHNIQUE: Noncontrast 3 mm thick sections acquired from the skull base to the T4 level. Sagittal and coronal reformats were then constructed. For radiation dose reduction, the following was used: automated exposure control, adjustment of mA and/or kV according to patient size. COMPARISON: None. FINDINGS: Image quality: Diagnostic Bones: [id number] spondylotic changes. Vertebral body heights are well maintained. No traumatic subluxation. Soft tissues: No apical pneumothorax. Prevertebral soft tissues are within normal limits. IMPRESSION: [id number] spondylotic changes. No acute displaced fracture or traumatic subluxation. If there is high concern for further derangement, consider MRI evaluation. Dictated by: Scott To M.D. on 10/29/2024 at 15:03 Approved by: Scott To M.D. on 10/29/2024 at 15:04 [facility] Narrative Medical decision making narrative: Mechanical fall from bed on October 25, there was no loss of consciousness and he takes no blood thinners. His main concern was to be evaluated because couple of his friends had some bad outcomes following head injuries. He is denying any headache, vision changes, he has a mild bruising around the right periorbital tissues, no acute findings on physical examination. No focal neurologic findings, he is without pain or complaint today. His CT of the brain and neck were normal. Based on his history with the vomiting and original headache it sounds like he had some concussive type symptoms but they have completely resolved. Reassurance is given, he is already improved substantially as apparently he had some swelling on his upper right lid that has resolved. He reports no vision changes or any concerns today. Red flag warning signs r eviewed in detail. Keep his activity light and of course do seek medical attention if anything changes or worsens or he develops any new worrisome symptoms. Discharge Plan Departure Patient Disposition: Home Clinical Impression: Closed head injury Qualifiers: Encounter type: initial encounter Qualified Code(s): S09.90XA - Unspecified injury of head, initial encounter Contusion of face Qualifiers: Encounter type: initial encounter Qualified Code(s): S00.83XA - Contusion of other part of head, initial encounter Concussion without loss of consciousness Qualifiers: Encounter type: initial encounter Qualified Code(s): S06.0X0A - Concussion without loss of consciousness, initial encounter Instructions: Concussion, DI for Closed Head Injury Activity Restrictions/Additional Instructions: Keep her activity light, avoid re-injury. You can continue to use ice as needed, your bruising should improve over the next couple of days. Cautioned with a contact lens but I think it is okay to use them now I would rather have you use both then wanted a time. Your CT scans were both normal. If you have any new symptoms or worrisome symptoms please do not hesitate to return to the emergency department or call 911. Acetaminophen as needed for pain. With any sort of concussion and I recommend brain rest this includes avoiding complex reading materials, or difficult tasks that require focus/detailed concentration. I hope you have a wonderful new year. Prescriptions: No Action buspirone 15 mg tablet 15 mg PO TID Qty: 270 1RF Rx Instructions: due for appt with pcp alprazolam [Xanax] 0.5 mg tablet 0.5 mg PO BID PRN (Reason: anxiety) Qty: 60 0RF paroxetine HCl 40 mg tablet See Rx Instructions .ROUTE .COMPLEX Qty: 90 1RF Dose Instruction: TAKE 1 TABLET BY MOUTH DAILY Rx Instructions: TAKE 1 TABLET BY MOUTH DAILY pantoprazole 40 mg tablet,delayed release (DR/EC) 40 mg PO DAILY Qty: 30 0RF lupron IM [id number] zytiga PO DAILY prednisone PO tamsulosin [Flomax] 0.4 mg capsule 0.4 mg PO DAILY oxycodone 5 mg tablet 5 mg PO Q6H PRN (Reason: pain) Qty: 14 0RF epinephrine [EpiPen] 0.3 mg/0.3 mL auto-injector 0.3 mg IM Q5-15M PRN (Reason: anaphylaxis) Qty: 2 0RF Rx Instructions: do not exceed 3 doses per episode Referrals: David Hartman DO [Primary Care Provider] - Stand Alone Forms: Patient Portal/API/Survey ED Sign-out <Cierra Gonzalez DO - Last Filed: 10/30/24 09:26> Cosign ED Attending Cosignature Attestation: I was available for consultation.
[2024-10-29 16:49] VITALS: BP 120/79; PULSE 77; RESP 18; O2SAT 95
--- NOTE | 2024-10-29 16:49 | PC.NURSE ---
PT seen by provider and discharged prior to visual acuity testing. Pt reports some dizziness but no blurred vision.
== END 2024-10-29 16:51 | disposition home or self-care (01) ==
PROVIDERS: Emergency Provider Physician Assistant Medical; PCP Family Medicine
DX: S06.0X0A Concussion without loss of consciousness, initial encounter (principal); S00.83XA Contusion of other part of head, initial encounter; W06.XXXA Fall from bed, initial encounter; Y93.84 Activity, sleeping; Y92.003 Bedroom of unspecified non-institutional (private) residence as the place of occurrence of the external cause
CPT/HCPCS: 70450; 72125; 99283; 99284

== ENCOUNTER → 2025-08-27 17:09 | Outpatient (CLI) | payer OTHER, SELFPAY ==
--- NOTE | 2025-08-27 17:11 | DI.RAD.S_ITS ---
PROCEDURE: XR CHEST 2V INDICATIONS: COUGH X1 MONTH TECHNIQUE: 2 views of the chest were acquired. COMPARISON: [facility], CR, XR CHEST 1V, 02/14/2022, 14:47. FINDINGS: Heart, mediastinum and pulmonary vascular: Heart size accentuated by suboptimal inspiratory result. Mediastinum is unremarkable. Pulmonary vascular is normal. Lungs: Clear Pleural spaces: Normal-no effusions or pneumothorax. Bones and soft tissues: Normal IMPRESSION: No acute cardiopulmonary disease. Dictated by: Sreekanth Heller M.D. on 08/28/2025 at 13:07 Approved by: Sreekanth Heller M.D. on 08/28/2025 at 13:08
== END ==
PROVIDERS: PCP Internal Medicine; Referring Provider Family Medicine; Visit Provider Family Medicine
DX: C61 Malignant neoplasm of prostate (principal); R05.1 Acute cough
CPT/HCPCS: 71046